=== PATIENT | female | born 1960 | race Caucasian/White ===

== ENCOUNTER 2018-02-04 11:25 | Observation (INO) | payer OTHER ==
[~2018-02-04] VITALS: Ht 160 cm; Wt 75.7 kg
[~2018-02-04 11:25] MED LIST: ATORVASTATIN CA10 MG PO; ATORVASTATIN CA40 MG PO; CIPRO500 MG PO; DICYCLOMINE HCL20 MG PO; GABAPENTIN300 MG PO; LEVOTHYROXINE25 MCG; METRONIDAZOLE500 MG PO; NEXIUM40 MG PO; TYLENOL # 31 EA PO; ULTRAM 50MG50 MG PO; ZOFRAN ODT4 MG
--- OUTSIDE RECORDS SUMMARY | 2018-02-04 11:29 | XMS REPORT | CCD ---
Author Author Auto Generated Organization [facility] Address Unknown Phone Unavailable Care Team Providers Care Maintenance And Custodian Supervisor Name Role Phone Dimitri Arce CP Allergies, Adverse Reactions, Alerts Substance Reaction Status NKDA Active Problem List Condition Effective Dates Status Chest pain Active Chronic depression Active Heart septal defects Active HLD - Hyperlipidemia Active Smoker Active Medications Medication Instructions Start Date End Date Status Zofran 4 mg, Route: IVP, Drug form: INJ, 08/08/2012 08/08/2012 Completed ONCE, Dosing Weight 70.455, kg, Priority: STAT, Start date: 08/08/12 16:58:00, Stop date: 08/08/12 16:58:00 morphine Sulfate 4 mg, Route: IM, Drug form: INJ, 08/08/2012 08/08/2012 Completed ONCE, Dosing Weight 70.455, kg, Priority: STAT, Start date: 08/08/12 16:58:00, Stop date: 08/08/12 16:58:00 aspirin 325 mg 325 mg, 1 tab, PO, Daily, 30 tab, 08/09/2012 Ordered tablet, enteric Substitution Allowed, ECTAB coated pravastatin 40 mg 40 mg, 1 tab, PO, Daily, 30 tab, 08/09/2012 Ordered oral tablet Substitution Allowed, TAB Saline Flush 0.9% 5 ml, Route: IVP, Drug Form: INJ, 08/08/2012 08/09/2012 Discontinued Dosing Weight 70.455, kg, PRN, PRN Line Flush, Start date: 08/08/12 18:21:00, Duration: 30 day, Stop date: 09/07/12 18:20:00 Saline Flush 0.9% 5 ml, Route: IVP, Drug Form: INJ, 08/08/2012 08/09/2012 Discontinued Dosing Weight 70.455, kg, Q12H, Start date: 08/08/12 21:00:00, Duration: 30 day, Stop date: 09/07/12 9:00:00 ondansetron 4 mg, 2 mL, Route: IVP, Drug form: 08/08/2012 08/09/2012 Discontinued INJ, Q8H, Dosing Weight 70.455, kg, PRN Nausea & Vomiting, Start date: 08/08/12 18:21:00, Duration: 30 day, Stop date: 09/07/12 18:20:00 nitroglycerin SL Tab 0.4 mg, 1 tab, Route: SL, Drug 08/08/2012 08/09/2012 Discontinued form: TAB, Q5Min, Dosing Weight 70.455, kg, PRN Chest Pain, Start date: 08/08/12 18:21:00, Duration: 3 doses or times, Stop date: Limited # of times atropine 0.5 mg, 5 mL, Route: IVP, Drug 08/08/2012 08/09/2012 Discontinued form: INJ, PRN, PRN Bradycardia, Start date: 08/08/12 21:26:00, Duration: 30 day, Stop date: 09/07/12 21:25:00 Saline Flush 0.9% 5 mL, Route: IVP, Drug Form: INJ, 08/08/2012 08/08/2012 Discontinued Dosing Weight 70.455, kg, Q8H, PRN Line Flush, Start date: 08/08/12 13:39:00, Duration: 30 day, Stop date: 09/07/12 13:38:00, Administer at least once every 8 hours Administer at least once every 8 hours aspirin 324 mg, 4 tab, Route: PO, Drug 08/08/2012 08/08/2012 Completed form: CHEWTAB, ONCE, Dosing Weight 70.455, kg, Priority: STAT, Start date: 08/08/12 13:39:00, Stop date: 08/08/12 13:39:00 Ambien 5 mg, 1 tab, Route: PO, Drug form: 08/08/2012 08/09/2012 Discontinued TAB, Bedtime, Dosing Weight 70.455, kg, Start date: 08/08/12 21:00:00, Duration: 30 day, Stop date: 09/06/12 21:00:00 sertraline 100 mg, 1 tab, Route: PO, Drug 08/09/2012 08/09/2012 Discontinued form: TAB, Daily, Dosing Weight 70.455, kg, Start date: 08/09/12 9:00:00, Duration: 30 day, Stop date: 09/07/12 9:00:00 Abilify 5 mg, 1 tab, Route: PO, Drug form: 08/08/2012 08/09/2012 Discontinued TAB, Bedtime, Dosing Weight 70.455, kg, Start date: 08/08/12 21:00:00, Duration: 30 day, Stop date: 09/06/12 21:00:00 pneumococcal 0.5 ml, Route: IM, Drug Form: INJ, 08/08/2012 08/09/2012 Discontinued 23-valent vaccine ONCALL, Start date: 08/08/12 22:00:00, Duration: 1 doses or times morphine Sulfate 2 mg, 1 mL, Route: IVP, Drug form: 08/08/2012 08/09/2012 Discontinued INJ, Q4H, Dosing Weight 70.455, kg, PRN Pain, Start date: 08/08/12 19:50:00, Duration: 30 day, Stop date: 09/07/12 19:49:00 enoxaparin 40 mg, 0.4 mL, Route: SUB-Q, Drug 08/08/2012 08/09/2012 Discontinued form: INJ, [id number], Dosing Weight 70.455, kg, Start date: 08/08/12 20:00:00, Duration: 30 day, Stop date: 09/06/12 20:00:00 Zofran 4 mg, 2 mL, Route: IVP, Drug form: 08/08/2012 08/08/2012 Completed INJ, ONCE, Dosing Weight 70.455, kg, Priority: STAT, Start date: 08/08/12 13:56:00, Stop date: 08/08/12 13:56:00 Abilify 5 mg oral 5 mg, 1 tab, PO, Bedtime, 08/08/2012 Ordered tablet Substitution Allowed Ambien 5 mg oral 5 mg, 1 tab, PO, Bedtime, 08/08/2012 Ordered tablet Substitution Allowed morphine Sulfate 4 mg, Route: IVP, ONCE, Dosing 08/08/2012 08/08/2012 Completed Weight 70.455, kg, Start date: 08/08/12 14:50:00, Stop date: 08/08/12 14:50:00 Vicodin 5/500 oral 1 tab, PO, Q4H, PRN, 60 tab, for 08/09/2012 Ordered tablet pain, Substitution Allowed, Maintenance, TAB morphine Sulfate 2 mg, 1 mL, Route: IVP, Drug form: 08/08/2012 08/08/2012 Completed INJ, ONCE, Dosing Weight 70.455, kg, Start date: 08/08/12 13:56:00, Stop date: 08/08/12 13:56:00 aspirin 325 mg 325 mg, 1 tab, PO, Daily, 30 tab, 08/09/2012 08/09/2012 Discontinued tablet, enteric Substitution Allowed, ECTAB coated pravastatin 40 mg 40 mg, 1 tab, PO, Daily, 30 tab, 08/09/2012 08/09/2012 Discontinued oral tablet Substitution Allowed, TAB Vicodin 5/500 oral 1 tab, PO, Q4H, PRN, 60 tab, for 08/09/2012 08/09/2012 Discontinued tablet pain, Substitution Allowed, Maintenance, TAB Vital Signs Most recent to oldest [Reference Range]: 1 2 3 Height 160.02 cm (08/08/2012 13:20:00) Temperature Oral [96.4-99.1 DegF] 97.5 DegF (08/09/2012 12:00:00) 97.9 DegF (08/09/2012 07:02:00) 98.0 DegF (08/09/2012 05:50:00) Systolic Blood Pressure [90-140 mmHg] 108 mmHg (08/09/2012 12:00:00) 117 mmHg (08/09/2012 07:02:00) 102 mmHg (08/09/2012 05:50:00) Diastolic Blood Pressure [60-90 mmHg] 66 mmHg (08/09/2012 12:00:00) 66 mmHg (08/09/2012 07:02:00) 68 mmHg (08/09/2012 05:50:00) Respiratory Rate [14-20 BRMIN] 16 BRMIN (08/09/2012 12:00:00) 14 BRMIN (08/09/2012 10:56:00) 16 BRMIN (08/09/2012 07:02:00) Peripheral Pulse Rate [60-100 bpm] 55 bpm *LOW* (08/09/2012 12:00:00) 49 bpm *LOW* (08/09/2012 07:02:00) 55 bpm *LOW* (08/09/2012 05:50:00) Weight 70.455 kg (08/08/2012 13:20:00) Results URINALYSIS Most recent to oldest [Reference Range]: 1 2 3 UA Turbidity [Clear] Clear (08/08/2012 16:00:00) UA Color [Yellow] Yellow *NA* (08/08/2012 16:00:00) UA pH [5.0-8.0] 5.0 (08/08/2012 16:00:00) UA Spec Grav [<=1.030] S3 *NA* (08/08/2012 16:00:00) UA Glucose [Negative mg/dL] Negative mg/dL *NA* (08/08/2012 16:00:00) UA Blood [Negative] Negative (08/08/2012 16:00:00) UA Ketones [Negative mg/dL] Negative mg/dL *NA* (08/08/2012 16:00:00) UA Protein [Negative mg/dL] Negative mg/dL (08/08/2012 16:00:00) UA Urobilinogen [0.1-1.0 mg/dL] <=1.0 mg/dL *NA* (08/08/2012 16:00:00) UA Bili [Negative] Negative *NA* (08/08/2012 16:00:00) UA Leuk Est [Negative] Negative (08/08/2012 16:00:00) UA Nitrite [Negative] Negative (08/08/2012 16:00:00) UA WBC [0-5 /HPF] 1 /HPF (08/08/2012 16:00:00) UA RBC [0-2 /HPF] 7 /HPF *HI* (08/08/2012 16:00:00) UA Sq Epi [Few /LPF] Occasional /LPF *NA* (08/08/2012 16:00:00) CHEMISTRY Most recent to oldest [Reference Range]: 1 2 3 Sodium Lvl [135-145 mEq/L] 141 mEq/L (08/09/2012 02:10:00) 141 mEq/L (08/08/2012 13:40:00) Potassium Lvl [3.5-5.1 mEq/L] 4.6 mEq/L (08/09/2012 02:10:00) 3.7 mEq/L (08/08/2012 13:40:00) Chloride Lvl [95-109 mEq/L] 105 mEq/L (08/09/2012 02:10:00) 106 mEq/L (08/08/2012 13:40:00) CO2 [24-32 mEq/L] 32 mEq/L (08/09/2012 02:10:00) 26 mEq/L (08/08/2012 13:40:00) AGAP [10.0-20.0 mEq/L] 8.6 mEq/L *LOW* (08/09/2012 02:10:00) 12.7 mEq/L (08/08/2012 13:40:00) Creatinine Lvl [0.5-1.4 mg/dL] 1.1 mg/dL (08/09/2012 02:10:00) 1.0 mg/dL (08/08/2012 13:40:00) eGFR 58 mL/min/1.73m2 1 *NA* (08/09/2012 02:10:00) 65 mL/min/1.73m2 2 *NA* (08/08/2012 13:40:00) BUN [7-22 mg/dL] 24 mg/dL *HI* (08/09/2012 02:10:00) 23 mg/dL *HI* (08/08/2012 13:40:00) B/C Ratio [6-25] 23 (08/08/2012 13:40:00) Glucose Lvl [70-99 mg/dL] 87 mg/dL 3 (08/09/2012 02:10:00) 178 mg/dL 4 *HI* (08/08/2012 13:40:00) Total Protein [6.4-8.4 g/dL] 7.2 g/dL (08/08/2012 13:40:00) Albumin Lvl [3.5-5.0 g/dL] 3.9 g/dL (08/08/2012 13:40:00) Globulin [2.0-4.0 g/dL] 3.3 g/dL (08/08/2012:40:00) A/G Ratio [0.7-1.6] 1.2 (08/08/2012:40:00) Calcium Lvl [8.5-10.5 mg/dL] 8.6 mg/dL (08/09/2012 02:10:00) 8.8 mg/dL (08/08/2012:40:00) Phosphorus [2.5-4.5 mg/dL] 3.3 mg/dL (08/08/2012:38:00) Magnesium Lvl [1.8-2.4 mg/dL] 1.8 mg/dL (08/08/2012:38:00) ALT [0-65 unit/L] 23 unit/L (08/08/2012:40:00) AST [0-37 unit/L] 16 unit/L (08/08/2012:40:00) Alk Phos [39-136 unit/L] 101 unit/L (08/08/2012:40:00) Bili Total [0.2-1.3 mg/dL] 0.3 mg/dL (08/08/2012:40:00) Total CK [12-191 unit/L] 61 unit/L (08/09/2012 02:10:00) 69 unit/L (08/08/2012 19:52:00) 62 unit/L (08/08/2012:40:00) CK MB [0.5-3.6 ng/mL] 0.6 ng/mL (08/08/2012:40:00) CK MB Index [0.0-2.5] 1.0 (08/08/2012:40:00) Troponin-I [0.00-0.40 ng/mL] <0.02 ng/mL (08/09/2012 02:10:00) <0.02 ng/mL (08/08/2012 19:52:00) <0.02 ng/mL (08/08/2012:38:00) BNP [<=100 pg/mL] 14 pg/mL 5 (08/08/2012:38:00) CHD Risk [3.90-5.80] 4.19 (08/09/2012 02:10:00) 3.85 *LOW* (08/08/2012 13:38:11) Chol [120-200 mg/dL] 243 mg/dL *HI* (08/09/2012:10:00) 239 mg/dL *HI* (08/08/2012:38:11) Trig [0-200 mg/dL] 197 mg/dL (08/09/2012:10:00) 172 mg/dL (08/08/2012:38:11) HDL [>=35 mg/dL] 58 mg/dL (08/09/2012:10:00) 62 mg/dL (08/08/2012:38:11) LDL [0-129 mg/dL] 146 mg/dL *HI* (08/09/2012:10:00) 143 mg/dL *HI* (08/08/2012:38:11) 1Result Comment: The eGFR is calculated using the CKD-EPI formula. In most young, healthy individuals the eGFR will be >90 mL/min/1.73m2. The eGFR declines with age. An eGFR of 60-89 may be normal in some populations, particularly the elderly, for whom the CKD-EPI formula has not been extensively validated. Use of the eGFR is not recommended in the following populations: Individuals with unstable creatinine concentrations, including patients and those with serious co-morbid conditions. Patients with extremes in muscle mass or diet. The data above are obtained from the National [employer] Education Program ( [employer]) which additionally recommends that when the eGFR is used in patients with extremes of body mass index for purposes of drug dosing, the eGFR should be mul tiplied by the estimated BMI. 2Result Comment: The eGFR is calculated using the CKD-EPI formula. In most young, healthy individuals the eGFR will be >90 mL/min/1.73m2. The eGFR declines with age. An eGFR of 60-89 may be normal in some populations, particularly the elderly, for whom the CKD-EPI formula has not been extensively validated. Use of the eGFR is not recommended in the following populations: Individuals with unstable creatinine concentrations, including patients and those with serious co-morbid conditions. Patients with extremes in muscle mass or diet. The data above are obtained from the National Kid[employer] Education Program ( [employer]DEP) which additionally recommends that when the eGFR is used in patients with extremes of body mass index for purposes of drug dosing, the eGFR should be mul tiplied by the estimated BMI. 3Interpretive Data: Adult reference range values reflect the clinical guidelines of the [place] [employer]. 4Interpretive Data: Adult reference range values reflect the clinical guidelines of the [place] [employer]. 5Interpretive Data: Elevated results are in line with increasing severity of congestive heart failure. Minor elevations between 100 and 300 may be seen with Myocardial Ischemia, Sodium retaining drugs, and compensated/treated heart failure. HEMATOLOGY Most recent to oldest [Reference Range]: 1 2 3 WBC [3.7-10.4 K/CMM] 6.5 K/CMM (08/08/2012:38:) RBC [4.20-5.40 M/CMM] 4.63 M/CMM (08/08/201238:) Hgb [12.0-16.0 g/dL] 14.0 g/dL (08/08/2012:38:) Hct [36.0-48.0 %] 42.0 % (08/08/2012:38:) MCV [81.0-99.0 fL] 90.6 fL (08/08/2012:38:00) MCH [27.0-31.0 pg] 30.2 pg (08/08/2012:38:00) MCHC [32.0-36.0 g/dL] 33.3 g/dL (08/08/2012:38:00) RDW [11.5-14.5 %] 13.7 % (08/08/2012:) Platelet [133-450 K/CMM] 242 K/CMM (08/08/2012:38:00) MPV [7.4-10.4 fL] 8.1 fL (08/08/2012:38:00) Segs [45.0-75.0 %] 66.1 % (08/08/2012:) Lymphocytes [20.0-40.0 %] 23.3 % (08/08/2012:38:) Monocytes [2.0-12.0 %] 7.2 % (08/08/2012 13:38:00) Eosinophils [0.0-4.0 %] 2.8 % (08/08/2012 13:38:00) Basophils [0.0-1.0 %] 0.6 % (08/08/2012:38:00) Segs-Bands # [1.5-8.1 K/CMM] 4.3 K/CMM (08/08/2012:38:00) Lymphocytes # [1.0-5.5 K/CMM] 1.5 K/CMM (08/08/2012:38:00) Monocytes # [0.0-0.8 K/CMM] 0.5 K/CMM (08/08/2012:38:00) Eosinophils # [0.0-0.5 K/CMM] 0.2 K/CMM (08/08/2012:38:00) Basophils # [0.0-0.2 K/CMM] 0.0 K/CMM (08/08/2012:38:00) PT [12.0-14.7 seconds] 13.1 seconds (08/08/2012:38:00) INR [0.85-1.17] 0.97 6 (08/08/2012:38:00) D-Dimer 0.27 ug/mL FEU 7 *NA* (08/08/2012:38:00) PTT [22.9-35.8 seconds] 24.8 seconds 8 (08/08/2012:38:00) 6Interpretive Data: RECOMMENDED RANGES FOR PROTIME INR: 2.0-3.0 for most medical and surgical thromboembolic states. 2.5-3.5 for artificial heart valves and recurrent embolism. INR SHOULD BE USED ONLY FOR PATIENTS ON STABLE ANTICOAGULANT THERAPY. 7Interpretive Data: In DIC, quantitative D-Dimer is generally greater than 0.66 ug/mL FEU. Values of quantitative D-Dimer less than 0.40 ug/mL FEU have been reported to be associated with a low probability of deep vein thrombosis/pulmonary embolism. This test alone should not be used to rule out DVT/PE. 8Interpretive Data: Heparin Therapeutic Range: 57 - 92 Seconds
--- OUTSIDE RECORDS SUMMARY | 2018-02-04 11:29 | XMS REPORT | Continuity of Care Document ---
Author Author [facility] Interface Address Unknown Phone Unavailable Problems Problem Status Onset Date Classification Date Reported Comments Source CHEST PAINS Active 09/24/2017 [facility] CHEST PAIN Active 09/23/2017 [facility] Discharge Diagnosis: Atypical chest pain 04/29/2016 05/02/2016 [facility] Discharge Diagnosis: Acute anxiety 04/29/2016 05/02/2016 [facility] Z12.31 / Z13.82 Active 07/11/2015 [facility] Discharge Diagnosis: Nausea 01/25/2015 01/28/2015 [facility] Discharge Diagnosis: Chronic abdominal pain 01/25/2015 01/28/2015 [facility] ABD PAIN, NAUSEA Active 01/25/2015 [facility] Discharge Diagnosis: Chest pain 06/08/2014 06/10/2014 [facility] UNK Active 08/23/2013 [facility] Discharge Diagnosis: Chest wall pain 08/01/2013 08/04/2013 [facility] Discharge Diagnosis: Anxiety 08/01/2013 08/04/2013 [facility] CHEST PAIN/NAUSEA Active 07/18/2013 [facility] Chest pain Active Problem 08/11/2012 [facility] Chronic depression Active Problem 08/11/2012 [facility] Heart septal defects Active Problem 08/11/2012 [facility] HLD - Hyperlipidemia Active Problem 08/11/2012 [facility] Smoker Active Problem 08/11/2012 [facility] Anxiety Active Problem 09/27/2017 [facility], [facility] [place] Chest pain Active Problem 09/27/2017 [facility], [facility] [place] Chronic depression Active Problem 09/27/2017 [facility], [facility] [place] Depression Active Problem 05/02/2016 [facility] [place] Heart murmur Active Problem 09/27/2017 [facility], [facility] [place] Heart septal defects Active Problem 09/27/2017 [facility] [place] High blood pressure Active Problem 09/27/2017 [facility], [facility] [place] High cholesterol Active Problem 09/27/2017 [facility] [place] HLD - Hyperlipidemia Active Problem 09/27/2017 [facility] [place] HTN (<span ID="[id number]</span>) Resolved Problem 09/27/2017 [facility] [place] Obesity Active Problem 09/27/2017 [facility] [place] Smoker Active Problem 09/27/2017 [facility] [place] VSD (<span ID="[id number]">Confirmed</span>) Resolved Problem 09/27/2017 [facility] [place] VSD (<span ID="[id number]">Confirmed</span>) Active Problem 09/27/2017 [facility] [place] Depression Active Diagnosis 11/21/2013 [facility] Hyperlipemia Active Diagnosis 11/21/2013 [facility] VSD Active Diagnosis 11/21/2013 [facility] Tobacco abuse Active Problem 11/21/2013 [facility] H. pylori infection Active Diagnosis 11/21/2013 [facility] Vomiting Active Diagnosis 11/21/2013 [facility] BMI 27.0-27.9,adult Active Problem 11/21/2013 [facility] Depression screen Active Diagnosis 11/21/2013 [facility] Tobacco abuse counseling Active Diagnosis 11/21/2013 [facility] Medications Medication Details Route Status Patient Instructions Ordering Provider Order Date Source Dexilant 60 mg, Route: PO, Drug form: DRC, Daily, Dosing Weight 80.909, kg, Start date: 09/25/17 9:00:00 CDT, Duration: 30 day, Stop date: 10/24/17 9:00:00 CDT No Longer Active 09/25/2017 [facility] Sertraline 100 mg, Route: PO, Drug form: TAB, Daily, Dosing Weight 80.909, kg, Start date: 09/25/17 9:00:00 CDT, Duration: 30 day, Stop date: 10/24/17 9:00:00 CDT No Longer Active 09/25/2017 [facility] azithromycin 500 mg oral tablet 500 mg, Route: PO, Drug form: TAB, Daily, Dosing Weight 80.909, kg, Start date: 09/25/17 9:00:00 CDT, Duration: 5 day, Stop date: 09/29/17 9:00:00 CDT, ABX Indication: Pneumonia No Longer Active 09/25/2017 [facility] Thyroxine 25 microgram, Route: PO, Drug form: TAB, Daily, Dosing Weight 80.909, kg, Start date: 09/25/17 9:00:00 CDT, Duration: 30 day, Stop date: 10/24/17 9:00:00 CDT No Longer Active 09/25/2017 [facility] Esomeprazole 40 mg, Route: PO, Drug form: ECCAP, Daily, Dosing Weight 80.909, kg, Start date: 09/25/17 9:00:00 CDT, Duration: 30 day, Stop date: 10/24/17 9:00:00 CDT No Longer Active 09/25/2017 [facility] Ambien 5 mg, Route: PO, Drug form: TAB, Bedtime, Dosing Weight 80.909, kg, Start date: 09/24/17 21:00:00 CDT, Duration: 30 day, Stop date: 10/23/17 21:00:00 CDT Inactive 09/25/2017 [facility] Ranitidine 150 MG Oral Tablet 150 mg, 1 tab, Route: PO, Drug form: TAB, BID, Dosing Weight 80.909, kg, Start date: 09/24/17 17:00:00 CDT, Duration: 30 day, Stop date: 10/24/17 9:00:00 CDT Inactive 09/24/2017 [facility] 12 HR ranolazine 500 MG Extended Release Tablet [Ranexa] 500 mg=1 tab, PO, BID, # 60 tab, 2 Refill(s), Pharmacy: [facility] [id number] Active 09/24/2017 [facility] tramadol hydrochloride 50 MG Oral Tablet 50 mg=1 tab, PO, Q6H, PRN Pain, # 60 tab, 1 Refill(s) Active 09/24/2017 [facility] amLODIPine 5 mg oral tablet 5 mg=1 tab, PO, Daily, # 30 tab, 1 Refill(s), Pharmacy: [facility] [id number] Active 09/24/2017 [facility] Dilaudid 0.1 mg, 0.1 mL, Route: IV, Drug form: INJ, Q4H, PRN Pain Score 6-10, Start date: 09/24/17 13:44:00 CDT, Duration: 30 day, Stop date: 10/24/17 13:43:00 CDTNotes: Same as: Dilaudid Inactive 09/24/2017 [facility] Morphine 3 mg, 1.5 mL, Route: PO, Drug form: SOLN, Q4H, Dosing Weight 80.909, kg, PRN Pain Score 6-10, Start date: 09/24/17 13:14:00 CDT, Duration: 30 day, Stop date: 10/24/17 13:13:00 CDTNotes: (Same as:MORPhine Sulfate) Inactive 09/24/2017 [facility] Morphine 2 mg, 1 mL, Route: IV, Drug form: SOLN, Q4H, Dosing Weight 80.909, kg, PRN Pain Score 7-10, Start date: 09/24/17 12:57:00 CDT, Duration: 30 day, Stop date: 10/24/17 12:56:00 CDT Inactive 09/24/2017 [facility] Esomeprazole 40 mg, Route: PO, Drug form: ECCAP, Daily, Dosing Weight 80.909, kg, Priority: STAT, Start date: 09/24/17 12:57:00 CDT, Duration: 30 day, Stop date: 10/24/17 9:00:00 CDT Inactive 09/24/2017 [facility] 12 HR ranolazine 500 MG Extended Release Tablet [Ranexa] 500 mg, 1 tab, Route: PO, BID, Dosing Weight 80.909, kg, Priority: STAT, Start date: 09/24/17 12:53:00 CDT, Duration: 30 day, Stop date: 10/24/17 9:00:00 CDT Inactive 09/24/2017 [facility] Acetaminophen 325 MG / Hydrocodone Bitartrate 7.5 MG Oral Tablet [[place] 7.5/325] 1 tab, Route: PO, Drug Form: TAB, Dosing Weight 80.909, kg, Q4H, PRN Angina, Start date: 09/24/17 12:50:00 CDT, Duration: 30 day, Stop date: 10/24/17 12:49:00 CDT Inactive 09/24/2017 [facility] ranolazine 500 mg, 1 tab, Route: PO, Drug form: TAB, BID, Dosing Weight 80.909, kg, Priority: NOW, Start date: 09/24/17 11:17:00 CDT, Duration: 30 day, Stop date: 10/24/17 9:00:00 CDTNotes: Same as Ranexa "Do Not Crush" Inactive 09/24/2017 [facility] Morphine 1 mg, 1 mL, Route: IV, Drug form: INJ, Q4H, Dosing Weight 80.909, kg, PRN Pain Score 7-10, Start date: 09/24/17 11:15:00 CDT, Duration: 30 day, Stop date: 10/24/17 11:14:00 CDTNotes: (Same as: Astramorph- PF) Inactive 09/24/2017 [facility] simvastatin 20 mg oral tablet 20 mg=1 tab, PO, Bedtime, # 30 tab, 1 Refill(s) Active 09/24/2017 [facility] lisinopril 10 mg oral tablet 10 mg=1 tab, PO, Daily, # 30 tab, 0 Refill(s) Inactive 09/24/2017 [facility] Tylenol 650 mg, PO, TID, PRN Pain Score 1-3, 0 Refill(s) Inactive 09/24/2017 [facility] Ranitidine 150 MG Oral Tablet 150 mg=1 tab, PO, BID, 0 Refill(s) Active 09/24/2017 [facility] dexlansoprazole 60 MG Enteric Coated Capsule [Dexilant] 60 mg=1 cap, PO, Daily, # 30 cap, 0 Refill(s) Active 09/24/2017 [facility] Saline Flush 0.9% 10 ml, Route: IVP, Drug Form: INJ, Dosing Weight 80.909, kg, PRN, PRN Line Flush, Start date: 09/24/17 10:51:00 CDT, Duration: 30 day, Stop date: 10/24/17 10:50:00 CDTNotes: Same as: BD Posiflush Sterile Inactive 09/24/2017 [facility] Acetaminophen 650 mg, 2 tab, Route: PO, Drug form: TAB, Q4H, Dosing Weight 80.909, kg, PRN Pain 1-3/Temp > 100.4 F, Start date: 09/24/17 10:51:00 CDT, Duration: 30 day, Stop date: 10/24/17 10:50:00 CDTNotes: Do not exceed 4 gm/day. (Same as: Tylenol) Inactive 09/24/2017 [facility] GI cocktail 30 mL, Route: PO, Dosing Weight 80.909, kg, ONCE, STAT, Start date: 09/24/17 7:48:00 CDT, Stop date: 09/24/17 7:48:00 CDT Inactive 09/24/2017 [facility] Nitroglycerin 0.4 mg, Route: SL, ONCE, Dosing Weight 80.909, kg, Priority: STAT, Start date: 09/24/17 7:07:00 CDT, Stop date: 09/24/17 7:07:00 CDT Inactive 09/24/2017 [facility] Fentanyl 50 microgram, Route: IVP, ONCE, Dosing Weight 80.909, kg, Priority: STAT, Start date: 09/24/17 7:07:00 CDT, Stop date: 09/24/17 7:07:00 CDT Inactive 09/24/2017 [facility] Aspirin 325 mg, Route: PO, Drug form: TAB, ONCE, Dosing Weight 80.909, kg, Priority: STAT, Start date: 09/24/17 6:35:00 CDT, Stop date: 09/24/17 6:35:00 CDT Inactive 09/24/2017 [facility] Fentanyl 50 microgram, Route: IVP, ONCE, Dosing Weight 80.909, kg, Priority: STAT, Start date: 09/24/17 6:32:00 CDT, Stop date: 09/24/17 6:32:00 CDT Inactive 09/24/2017 [facility] Saline Flush 0.9% 10 mL, Route: IVP, Drug Form: INJ, Dosing Weight 80.909, kg, PRN, PRN Line Flush, Start date: 09/24/17 6:27:00 CDT, Duration: 30 day, Stop date: 10/24/17 6:26:00 CDTNotes: (Same as: BD Posiflush) Inactive 09/24/2017 [facility] Diazepam 2 MG Oral Tablet [Valium] 2 mg=1 tab, PO, QID, PRN Anxiety, X 7 day, # 5 tab, 0 Refill(s) Active 04/29/2016 [facility] Hydromorphone 1 mg, 1 mL, Route: IVP, Drug form: INJ, ONCE, Dosing Weight 79.545, kg, Priority: STAT, Start date: 04/29/16 12:29:00 [employer], Stop date: 04/29/16 12:29:00 [employer] Inactive 04/29/2016 [facility] Morphine 4 mg, 1 mL, Route: IVP, Drug form: SOLN, ONCE, Dosing Weight 79.545, kg, Priority: STAT, Start date: 04/29/16 12:29:00 YOU[employer] WORKER, Stop date: 04/29/16 12:29:00 CSTNotes: (Same as:MORPhine Sulfate) Inactive 04/29/2016 [facility] Aspirin 324 mg, 4 tab, Route: PO, Drug form: CHEWTAB, ONCE, Dosing Weight 79.545, kg, Priority: STAT, Start date: 04/29/16 12:29:00 [employer] WORK[employer], Stop date: 04/29/16 12:29:00 CSTNotes: Take with food. Inactive 04/29/2016 [facility] Saline Flush 0.9% 10 mL, Route: IVP, Drug Form: INJ, Dosing Weight 79.545, kg, PRN, PRN Line Flush, Start date: 04/29/16 12:29:00 YOU[employer] C[employer] WORKER, Duration: 30 day, Stop date: 05/29/16 12:28:00 CSTNotes: (Same as: BD Posiflush) Inactive 04/29/2016 [facility] Ondansetron 4 MG Disintegrating Tablet [Zofran] 4 mg=1 tab, PO, TID, PRN Nausea and Vomiting, Dissolve tab under tongue, X 5 day, # 15 tab, 0 Refill(s) Active 01/26/2015 [facility] Zofran 4 mg, Route: IVP, Drug form: INJ, ONCE, Dosing Weight 77.273, kg, Priority: STAT, Start date: 01/25/15 20:19:00, Stop date: 01/25/15 20:19:00 Inactive 01/26/2015 [facility] Dilaudid 1 mg, Route: IVP, ONCE, Dosing Weight 77.273, kg, Priority: STAT, Start date: 01/25/15 18:26:00, Stop date: 01/25/15 18:26:00 Inactive 01/25/2015 [facility] pantoprazole 40 mg, Route: IVP, ONCE, Dosing Weight 77.273, kg, For IV push reconstitute with 10 ml 0.9% sodium chloride and push over at least 3 minutes, Priority: STAT, Start date: 01/25/15 17:23:00, Stop date: 01/25/15 17:23:00 Inactive 01/25/2015 [facility] Hydromorphone 1 mg, Route: IVP, ONCE, Dosing Weight 77.273, kg, Priority: STAT, Start date: 01/25/15 17:23:00, Stop date: 01/25/15 17:23:00 Inactive 01/25/2015 [facility] Ondansetron 4 mg, Route: IVP, ONCE, Dosing Weight 77.273, kg, Priority: STAT, Start date: 01/25/15 17:23:00, Stop date: 01/25/15 17:23:00 Inactive 01/25/2015 [facility] Sodium Chloride 0.154 MEQ/ML Injectable Solution 1,000 mL, Infuse Over: 1 hr, Route: IV, ONCE, Priority: STAT, Dosing Weight 77.273 kg, Start date: 01/25/15 17:23:00, Duration: 1 doses or times, Stop date: 01/25/15 17:23:00 Inactive 01/25/2015 [facility] Saline Flush 0.9% 10 mL, Route: IVP, Drug Form: INJ, Dosing Weight 77.273, kg, PRN, PRN Line Flush, Start date: 01/25/15 17:23:00, Duration: 30 day, Stop date: 02/24/15 16:22:00Notes: (Same as: BD Posiflush) No Longer Active 01/25/2015 [facility] Acetaminophen 300 MG / Codeine Phosphate 30 MG Oral Tablet [Tylenol with Codeine #3] 1 tab, Route: PO, Drug Form: TAB, Dosing Weight 75, kg, ONCE, STAT, Start date: 06/08/14 15:30:00, Stop date: 06/08/14 15:30:00 Inactive 06/08/2014 [facility] Acetaminophen 300 MG / Codeine Phosphate 30 MG Oral Tablet [Tylenol with Codeine #3] 1 - 2 tab, PO, Q4H, Pain, # 20 tab, 0 Refill(s) Active 06/08/2014 [facility] Acetaminophen 300 MG / Codeine Phosphate 30 MG Oral Tablet [Tylenol with Codeine #3] 1 tab, Route: PO, Drug Form: TAB, Dosing Weight 75, kg, ONCE, STAT, Start date: 06/08/14 14:29:00, Stop date: 06/08/14 14:29:00 Inactive 06/08/2014 [facility] Ibuprofen 400 MG Oral Tablet 400 mg=1 tab, PO, Q6H, Pain or Fever, Take with food, # 40 tab, 0 Refill(s)Special Instructions: Take with food Active 06/08/2014 [facility] GI cocktail 30 mL, Route: PO, Dosing Weight 75, kg, ONCE, STAT, Start date: 06/08/14 13:17:00, Stop date: 06/08/14 13:17:00 Inactive 06/08/2014 [facility] Pepcid 20 mg, Route: IV, ONCE, Dosing Weight 75, kg, Start date: 06/08/14 13:17:00, Stop date: 06/08/14 13:17:00 Inactive 06/08/2014 [facility] Ketorolac 30 mg, Route: IVP, Drug form: INJ, ONCE, Dosing Weight 75, kg, Priority: STAT, Start date: 06/08/14 12:26:00, Stop date: 06/08/14 12:26:00 Inactive 06/08/2014 [facility] Ativan 1 mg, Route: IVP, Drug form: INJ, ONCE, Dosing Weight 75, kg, Priority: STAT, Start date: 06/08/14 10:31:00, Stop date: 06/08/14 10:31:00 Inactive 06/08/2014 [facility] Morphine 4 mg, Route: IVP, Drug form: INJ, ONCE, Dosing Weight 75, kg, Priority: STAT, Start date: 06/08/14 10:31:00, Stop date: 06/08/14 10:31:00 Inactive 06/08/2014 [facility] Nitroglycerin 0.4 mg, Route: SL, ONCE, Dosing Weight 75, kg, Priority: STAT, Start date: 06/08/14 10:21:00, Stop date: 06/08/14 10:21:00 Inactive 06/08/2014 [facility] aspirin 324 mg, Route: CHEW, Drug form: CHEWTAB, ONCE, Dosing Weight 75, kg, Priority: STAT, Start date: 06/08/14 10:20:00, Stop date: 06/08/14 10:20:00 Inactive 06/08/2014 [facility] Zofran 4 mg, Route: IVP, Drug form: INJ, ONCE, Dosing Weight 75, kg, Priority: STAT, Start date: 06/08/14 10:20:00, Stop date: 06/08/14 10:20:00 Inactive 06/08/2014 [facility] Morphine 4 mg, Route: IVP, Drug form: INJ, ONCE, Dosing Weight 75, kg, Priority: STAT, Start date: 06/08/14 10:20:00, Stop date: 06/08/14 10:20:00 Inactive 06/08/2014 [facility] Diazepam 2 MG Oral Tablet [Valium] 4 mg=2 tab, PO, QID, Chest Pain, # 12 tab, 0 Refill(s) Active 12/26/2013 [facility] Valium 5 mg, Route: IVP, Drug form: INJ, ONCE, Dosing Weight 70.455, kg, Priority: STAT, Start date: 12/25/13 20:46:00, Stop date: 12/25/13 20:46:00 Inactive 12/26/2013 [facility] Zofran 4 mg, Route: IVP, Drug form: INJ, ONCE, Dosing Weight 70.455, kg, Priority: STAT, Start date: 12/25/13 20:27:00, Stop date: 12/25/13 20:27:00 Inactive 12/26/2013 [facility] Morphine 4 mg, Route: IVP, Drug form: INJ, ONCE, Dosing Weight 70.455, kg, Priority: STAT, Start date: 12/25/13 20:27:00, Stop date: 12/25/13 20:27:00 Inactive 12/26/2013 [facility] Omeclamox-Lance as directed by mouth Active 20/500/500 by mouth daily [facility] 11/02/2013 [facility] Indomethacin 75 MG Extended Release Capsule [Indocin] 75 mg=1 cap, PO, Daily, for pain, # 10 cap, 0 Refill(s) Inactive 08/01/2013 [facility] Zofran 4 mg, Route: IVP, ONCE, Dosing Weight 68.182, kg, Priority: STAT, Start date: 08/01/13 16:24:00, Stop date: 08/01/13 16:24:00 Inactive 08/01/2013 [facility] Morphine 4 mg, Route: IVP, ONCE, Dosing Weight 68.182, kg, Priority: STAT, Start date: 08/01/13 16:24:00, Stop date: 08/01/13 16:24:00 Inactive 08/01/2013 [facility] Ketorolac 60 mg, Route: IM, Drug form: INJ, ONCE, Dosing Weight 68.182, kg, Priority: STAT, Start date: 08/01/13 16:18:00, Stop date: 08/01/13 16:18:00 Inactive 08/01/2013 [facility] pravastatin 40 mg oral tablet 40 mg, 1 tab, PO, Daily, 30 tab, Substitution Allowed, TAB PO Active [facility] 08/09/2012 [facility] aspirin 325 mg tablet, enteric coated 325 mg, 1 tab, PO, Daily, 30 tab, Substitution Allowed, ECTAB PO Active [facility] 08/09/2012 [facility] Vicodin 5/500 oral tablet 1 tab, PO, Q4H, PRN, 60 tab, for pain, Substitution Allowed, Maintenance, TAB PO Active [facility] 08/09/2012 [facility] aspirin 325 mg tablet, enteric coated 325 mg, 1 tab, PO, Daily, 30 tab, Substitution Allowed, ECTAB PO No Longer Active [facility] 08/09/2012 [facility] pravastatin 40 mg oral tablet 40 mg, 1 tab, PO, Daily, 30 tab, Substitution Allowed, TAB PO No Longer Active [facility] 08/09/2012 [facility] Vicodin 5/500 oral tablet 1 tab, PO, Q4H, PRN, 60 tab, for pain, Substitution Allowed, Maintenance, TAB PO No Longer [facility]/2012 [facility] sertraline 100 mg, 1 tab, Route: PO, Drug form: TAB, Daily, Dosing Weight 70.455, kg, Start date: 08/09/12 9:00:00, Duration: 30 day, Stop date: 09/07/12 9:00:00 PO No Longer Active [facility] 08/09/2012 [facility] pneumococcal 23-valent vaccine 0.5 ml, Route: IM, Drug Form: INJ, ONCALL, Start date: 08/08/12 22:00:00, Duration: 1 doses or times IM No Longer Active [facility] 08/09/2012 [facility] atropine 0.5 mg, 5 mL, Route: IVP, Drug form: INJ, PRN, PRN Bradycardia, Start date: 08/08/12 21:26:00, Duration: 30 day, Stop date: 09/07/12 21:25:00 IVP No Longer Active [facility] 08/09/2012 [facility] Saline Flush 0.9% 5 ml, Route: IVP, Drug Form: INJ, Dosing Weight 70.455, kg, Q12H, Start date: 08/08/12 21:00:00, Duration: 30 day, Stop date: 09/07/12 9:00:00 IVP No Longer Active [facility] 08/09/2012 [facility] Ambien 5 mg, 1 tab, Route: PO, Drug form: TAB, Bedtime, Dosing Weight 70.455, kg, Start date: 08/08/12 21:00:00, Duration: 30 day, Stop date: 09/06/12 21:00:00 PO No Longer Active [facility] 08/09/2012 [facility] Abilify 5 mg, 1 tab, Route: PO, Drug form: TAB, Bedtime, Dosing Weight 70.455, kg, Start date: 08/08/12 21:00:00, Duration: 30 day, Stop date: 09/06/12 21:00:00 PO No Longer Active [facility] 08/09/2012 [facility] enoxaparin 40 mg, 0.4 mL, Route: SUB-Q, Drug form: INJ, [id number], Dosing Weight 70.455, kg, Start date: 08/08/12 20:00:00, Duration: 30 day, Stop date: 09/06/12 20:00:00 SUB-Q No Longer Active [facility] 08/09/2012 [facility] morphine Sulfate 2 mg, 1 mL, Route: IVP, Drug form: INJ, Q4H, Dosing Weight 70.455, kg, PRN Pain, Start date: 08/08/12 19:50:00, Duration: 30 day, Stop date: 09/07/12 19:49:00 IVP No Longer Active [facility] 08/09/2012 [facility] Saline Flush 0.9% 5 ml, Route: IVP, Drug Form: INJ, Dosing Weight 70.455, kg, PRN, PRN Line Flush, Start date: 08/08/12 18:21:00, Duration: 30 day, Stop date: 09/07/12 18:20:00 IVP No Longer Active [facility] 08/08/2012 [facility] ondansetron 4 mg, 2 mL, Route: IVP, Drug form: INJ, Q8H, Dosing Weight 70.455, kg, PRN Nausea & Vomiting, Start date: 08/08/12 18:21:00, Duration: 30 day, Stop date: 09/07/12 18:20:00 IVP No Longer Active [facility] 08/08/2012 [facility] nitroglycerin SL Tab 0.4 mg, 1 tab, Route: SL, Drug form: TAB, Q5Min, Dosing Weight 70.455, kg, PRN Chest Pain, Start date: 08/08/12 18:21:00, Duration: 3 doses or times, Stop date: Limited # of times SL No Longer Active [facility] 08/08/2012 [facility] Abilify 5 mg oral tablet 5 mg, 1 tab, PO, Bedtime, Substitution Allowed PO Active [facility] 08/08/2012 [facility] Ambien 5 mg oral tablet 5 mg, 1 tab, PO, Bedtime, Substitution Allowed PO Active [facility] 08/08/2012 [facility] Zofran 4 mg, Route: IVP, Drug form: INJ, ONCE, Dosing Weight 70.455, kg, Priority: STAT, Start date: 08/08/12 16:58:00, Stop date: 08/08/12 16:58:00 IVP No Longer Active [facility] 08/08/2012 [facility] morphine Sulfate 4 mg, Route: IM, Drug form: INJ, ONCE, Dosing Weight 70.455, kg, Priority: STAT, Start date: 08/08/12 16:58:00, Stop date: 08/08/12 16:58:00 IM No Longer Active [facility] 08/08/2012 [facility] morphine Sulfate 4 mg, Route: IVP, ONCE, Dosing Weight 70.455, kg, Start date: 08/08/12 14:50:00, Stop date: 08/08/12 14:50:00 IVP No Longer Active [facility] 08/08/2012 [facility] Zofran 4 mg, 2 mL, Route: IVP, Drug form: INJ, ONCE, Dosing Weight 70.455, kg, Priority: STAT, Start date: 08/08/12 13:56:00, Stop date: 08/08/12 13:56:00 IVP No Longer Active [facility] 08/08/2012 [facility] morphine Sulfate 2 mg, 1 mL, Route: IVP, Drug form: INJ, ONCE, Dosing Weight 70.455, kg, Start date: 08/08/12 13:56:00, Stop date: 08/08/12 13:56:00 IVP No Longer Active [facility] 08/08/2012 [facility] Saline Flush 0.9% 5 mL, Route: IVP, Drug Form: INJ, Dosing Weight 70.455, kg, Q8H, PRN Line Flush, Start date: 08/08/12 13:39:00, Duration: 30 day, Stop date: 09/07/12 13:38:00, Administer at least once every 8 hoursAdminister at least once every 8 hours IVP No Longer Active [facility] 08/08/2012 [facility] aspirin 324 mg, 4 tab, Route: PO, Drug form: CHEWTAB, ONCE, Dosing Weight 70.455, kg, Priority: STAT, Start date: 08/08/12 13:39:00, Stop date: 08/08/12 13:39:00 PO No Longer Active [facility] 08/08/2012 [facility] omeprazole 20 mg oral delayed release capsule 20 mg, 1 cap, PO, Daily, 30 cap, Substitution Allowed PO Active [facility] 05/07/2011 [facility] sertraline 100 mg, 1 tab, Route: PO, Drug form: TAB, Daily, Start date: 05/07/11 9:00:00, Duration: 30 day, Stop date: 06/05/11 9:00:00 PO No Longer Active [facility] [place] [facility] 05/07/2011 [facility] Protonix 40 mg, 1 tab, Route: PO, Drug form: ECTAB, Daily, Priority: NOW, Start date: 05/06/11 10:14:00, Duration: 30 day, Stop date: 06/05/11 9:00:00 PO No Longer Active [facility] 05/06/2011 [facility] GI cocktail 30 mL, Route: PO, Drug Form: SUSP, Q6H, Start date: 05/06/11 6:30:00, Duration: 30 day, Stop date: 06/05/11 6:00:00 PO No Longer Active [facility] 05/06/2011 [facility] Saline Flush 0.9% 5 ml, Route: IVP, Drug Form: INJ, Q12H, Start date: 05/05/11 21:00:00, Duration: 30 day, Stop date: 06/04/11 9:00:00 IVP No Longer Active [facility] 05/06/2011 [facility] morphine Sulfate 1 mg, 0.1 mL, Route: IV, Drug form: INJ, Q4H, PRN Chest Pain, Start date: 05/05/11 17:10:00, Duration: 30 day, Stop date: 06/04/11 17:09:00 IV No Longer Active [facility] 05/05/2011 [facility] nitroglycerin 2% ointment 0.5 inch, Route: TOP, Drug Form: OINT, TID, Start date: 05/05/11 17:00:00, Duration: 30 day, Stop date: 06/04/11 13:00:00 TOP No Longer Active [facility] 05/05/2011 [facility] morphine Sulfate 2 mg, 0.2 mL, Route: IVP, Drug form: INJ, Q2H, PRN Chest Pain, Morphine sulfate 1-2 mg IVP Q 4 hours PRN chest pain, Priority: NOW, Start date: 05/05/11 16:56:00, Stop date: 06/04/11 16:55:00 IVP No Longer Active [facility] 05/05/2011 [facility] Saline Flush 0.9% 5 ml, Route: IVP, Drug Form: INJ, PRN, PRN Line Flush, Start date: 05/05/11 16:12:00, Duration: 30 day, Stop date: 06/04/11 16:11:00 IVP No Longer Active [facility] 05/05/2011 [facility] nitroglycerin SL Tab 0.4 mg, 1 tab, Route: SL, Drug form: TAB, Q5Min, PRN Chest Pain, Start date: 05/05/11 16:12:00, Duration: 3 doses or times, Stop date: Limited # of times SL No Longer Active [facility] 05/05/2011 [facility] ondansetron 4 mg, 1 tab, Route: PO, Drug form: TAB, Q8H, PRN Nausea & Vomiting, Start date: 05/05/11 16:12:00, Duration: 30 day, Stop date: 06/04/11 16:11:00 PO No Longer Active [facility] 05/05/2011 [facility] aspirin 325 mg tablet 325 mg, 1 tab, Route: PO, Drug form: TAB, ONCE, Start date: 05/05/11 16:12:00, Stop date: 05/05/11 16:12:00 PO No Longer Active [facility] 05/05/2011 [facility] sertraline 100 mg oral tablet 100 mg, 1 tab, PO, Daily, Substitution Allowed PO Active [facility] 05/05/2011 [facility] morphine Sulfate 2 mg, Route: IVP, ONCE, Start date: 05/05/11 14:17:00, Stop date: 05/05/11 14:17:00 IVP No Longer Active [facility] 05/05/2011 [facility] aspirin 325 mg tablet 325 mg, Route: PO, Drug form: TAB, ONCE, Priority: STAT, Start date: 05/05/11 12:17:00, Stop date: 05/05/11 12:17:00 PO No Longer Active [facility] 05/05/2011 [facility] Saline Flush 0.9% 5 ml, Route: IVP, Drug Form: INJ, PRN, PRN Line Flush, Start date: 05/05/11 12:17:00, Duration: 24 hr, Stop date: 05/06/11 12:16:00 IVP No Longer Active [facility] 05/05/2011 [facility] nitroglycerin 2% ointment 0.5 inch, Route: TOP, Drug Form: OINT, ONCE, STAT, Start date: 05/05/11 12:17:00, Stop date: 05/05/11 12:17:00 TOP No Longer Active [facility] 05/05/2011 [facility] morphine Sulfate 2 mg, Route: IVP, ONCE, Priority: STAT, Start date: 05/05/11 12:17:00, Stop date: 05/05/11 12:17:00 IVP No Longer Active [facility] 05/05/2011 [facility] Hydrocodone-Acetaminophen 1 tablet as needed Orally Active 325- 5 MG Orally every 6 hrs [facility] Zoloft 1 tablet Orally Active 100 MG Orally Once a day [facility] Aspirin 1 tablet Orally Active 81 MG Orally Once a day [facility] Allergies, Adverse Reactions, Alerts Substance Category Reaction Severity Reaction type Status Date Reported Comments Source N.K.D.A. Adverse Reaction Info Not Available Adverse Reaction Active 11/02/2013 [facility] Immunizations Immunization Date Given Site Status Last Updated Comments Source Results Order Name Results Value Reference Range Date Interpretation Comments Source CARDIAC ENZYMES Total CK 33 unit/L 12 - 191 09/24/2017 [facility] CARDIAC ENZYMES Troponin-I null 0.00 - 0.40 09/24/2017 [facility] CHEM PANEL eGFR 77 mL/min/1.73m2 09/24/2017 Result Comment: The eGFR is calculated using the [...] from the National Kidney Disease Education Program (NKDEP) which additionally recommends that when the eGFR is used in patients with extremes of body mass index for purposes of drug dosing, the eGFR should be multiplied by the estimated BMI. [facility] CHEM PANEL Bili Total 0.5 mg/dL 0.2 - 1.3 09/24/2017 [facility] CHEM PANEL A/G Ratio 1.1 0.7 - 1.6 09/24/2017 [facility] CHEM PANEL Globulin 3.5 g/dL 2.7 - 4.2 09/24/2017 [facility] CHEM PANEL ALT 58 unit/L 0 - 65 09/24/2017 [facility] CHEM PANEL Albumin Lvl 3.8 g/dL 3.5 - 5.0 09/24/2017 [facility] CHEM PANEL CO2 26 meq/L 24 - 32 09/24/2017 [facility] CHEM PANEL AST 24 unit/L 0 - 37 09/24/2017 [facility] CHEM PANEL Alk Phos 112 unit/L 39 - 136 09/24/2017 [facility] CHEM PANEL BUN 19 mg/dL 7 - 22 09/24/2017 [facility] CHEM PANEL Creatinine Lvl 0.84 mg/dL 0.50 - 1.40 09/24/2017 [facility] CHEM PANEL Chloride Lvl 104 meq/L 95 - 109 09/24/2017 [facility] CHEM PANEL Potassium Lvl 3.8 meq/L 3.5 - 5.1 09/24/2017 [facility] CHEM PANEL Sodium Lvl 140 meq/L 135 - 145 09/24/2017 [facility] CHEM PANEL AGAP 13.8 meq/L 10.0 - 20.0 09/24/2017 [facility] CHEM PANEL B/C Ratio 23 6 - 25 09/24/2017 [facility] CHEM PANEL Total Protein 7.3 g/dL 6.4 - 8.4 09/24/2017 [facility] CHEM PANEL Calcium Lvl 8.8 mg/dL 8.5 - 10.5 09/24/2017 [facility] CHEM PANEL Glucose Lvl 138 mg/dL 70 - 99 09/24/2017 [facility] CHEM PANEL Magnesium Lvl 2.2 mg/dL 1.8 - 2.4 09/24/2017 [facility] HEMATOLOGY RDW 13.6 % 11.5 - 14.5 09/24/2017 [facility] HEMATOLOGY Platelet 255 K/CMM 133 - 450 09/24/2017 [facility] HEMATOLOGY Hgb 13.9 g/dL 12.0 - 16.0 09/24/2017 [facility] HEMATOLOGY WBC 7.6 K/CMM 3.7 - 10.4 09/24/2017 [facility] HEMATOLOGY RBC 4.66 M/CMM 4.20 - 5.40 09/24/2017 [facility] HEMATOLOGY Hct 41.0 % 36.0 - 48.0 09/24/2017 [facility] HEMATOLOGY MCV 87.9 fL 80.0 - 98.0 09/24/2017 [facility] MCHC 34.0 g/dL 32.0 - 36.0 09/24/2017 [facility] MCH 29.8 pg 27.0 - 31.0 09/24/2017 [facility] HEMATOLOGY MPV 7.7 fL 7.4 - 10.4 09/24/2017 [facility] HEMATOLOGY Eosinophils # 0.1 K/CMM 0.0 - 0.5 09/24/2017 [facility] HEMATOLOGY Basophils # 0.1 K/CMM 0.0 - 0.2 09/24/2017 [facility] HEMATOLOGY Monocytes # 0.5 K/CMM 0.0 - 0.8 09/24/2017 [facility] HEMATOLOGY Segs 64.0 % 45.0 - 75.0 09/24/2017 [facility] HEMATOLOGY Lymphocytes 27.0 % 20.0 - 40.0 09/24/2017 [facility] HEMATOLOGY Eosinophils 1.5 % 0.0 - 4.0 09/24/2017 [facility] HEMATOLOGY Basophils 1.3 % 0.0 - 1.0 09/24/2017 [facility] HEMATOLOGY Segs-Bands # 4.9 K/CMM 1.5 - 8.1 09/24/2017 [facility] Monocytes 6.2 % 2.0 - 12.0 09/24/2017 [facility] HEMATOLOGY Lymphocytes # 2.1 K/CMM 1.0 - 5.5 09/24/2017 [facility] D-Dimer 0.32 ug/mL FEU 09/24/2017 [facility] Cardiac SPECT multi studies [place] Cardiac SPECT multi studies [place] LOCATION: [facility] [place] This is an Lexiscan myocardial perfusion study. Lexiscan was injected per protocol. Cardiolite was injected during peak stress as well as during rest. The myocardial perfusion was obtained using standard procedure. The myocardial perfusion was normal during both phases. No evidence of ischemia. Ejection fraction was 78 % with normal wall motion. IMPRESSION: Normal myocardial perfusion study. 09/24/2017 - - Read by: Jaqueline Arce MD Dictated Date/time: 09/24/17 16:10 Electronically Signed by: Jaqueline Arce MD 09/24/17 16:11 FINAL REPORT [facility] CARDIAC ENZYMES Troponin-I null 0.00 - 0.40 09/24/2017 [facility] CARDIAC ENZYMES BNP 10 pg/mL <=100 pg/mL 09/24/2017 [facility] CARDIAC ENZYMES CK MB null 0.5 - 3.6 09/24/2017 [facility] CARDIAC ENZYMES Total CK 36 unit/L 12 - 191 09/24/2017 [facility] CARDIAC ENZYMES CK MB Index null 0.0 - 2.5 09/24/2017 [facility] CHEM PANEL eGFR 84 mL/min/1.73m2 09/24/2017 Result Comment: The eGFR is calculated using the [...] from the National Kidney Disease Education Program (NKDEP) which additionally recommends that when the eGFR is used in patients with extremes of body mass index for purposes of drug dosing, the eGFR should be multiplied by the estimated BMI. [facility] CHEM PANEL AGAP 11.1 meq/L 10.0 - 20.0 09/24/2017 [facility] CHEM PANEL B/C Ratio 27 6 - 25 09/24/2017 [facility] CHEM PANEL Bili Total 0.7 mg/dL 0.2 - 1.3 09/24/2017 [facility] CHEM PANEL ALT 64 unit/L 0 - 65 09/24/2017 [facility] CHEM PANEL Total Protein 7.9 g/dL 6.4 - 8.4 09/24/2017 [facility] CHEM PANEL Albumin Lvl 4.0 g/dL 3.5 - 5.0 09/24/2017 [facility] CHEM PANEL Calcium Lvl 9.0 mg/dL 8.5 - 10.5 09/24/2017 [facility] CHEM PANEL Chloride Lvl 103 meq/L 95 - 109 09/24/2017 [facility] CHEM PANEL CO2 28 meq/L 24 - 32 09/24/2017 [facility] CHEM PANEL Globulin 3.9 g/dL 2.7 - 4.2 09/24/2017 [facility] CHEM PANEL AST 27 unit/L 0 - 37 09/24/2017 [facility] CHEM PANEL Alk Phos 127 unit/L 39 - 136 09/24/2017 [facility] CHEM PANEL A/G Ratio 1.0 0.7 - 1.6 09/24/2017 [facility] CHEM PANEL Sodium Lvl 138 meq/L 135 - 145 09/24/2017 [facility] CHEM PANEL Potassium Lvl 4.1 meq/L 3.5 - 5.1 09/24/2017 [facility] CHEM PANEL Creatinine Lvl 0.78 mg/dL 0.50 - 1.40 09/24/2017 [facility] CHEM PANEL BUN 21 mg/dL 7 - 22 09/24/2017 [facility] CHEM PANEL Glucose Lvl 99 mg/dL 70 - 99 09/24/2017 [facility] RDW 14.1 % 11.5 - 14.5 09/24/2017 [facility] MCHC 33.8 g/dL 32.0 - 36.0 09/24/2017 [facility] MCV 87.1 fL 80.0 - 98.0 09/24/2017 [facility] MCH 29.4 pg 27.0 - 31.0 09/24/2017 [facility] MPV 7.8 fL 7.4 - 10.4 09/24/2017 [facility] Platelet 307 K/CMM 133 - 450 09/24/2017 [facility] Hct 44.6 % 36.0 - 48.0 09/24/2017 [facility] Hgb 15.1 g/dL 12.0 - 16.0 09/24/2017 [facility] WBC 7.1 K/CMM 3.7 - 10.4 09/24/2017 [facility] RBC 5.13 M/CMM 4.20 - 5.40 09/24/2017 [facility] Basophils # 0.1 K/CMM 0.0 - 0.2 09/24/2017 [facility] Eosinophils 2.4 % 0.0 - 4.0 09/24/2017 [facility] Segs-Bands # 3.9 K/CMM 1.5 - 8.1 09/24/2017 [facility] Basophils 1.1 % 0.0 - 1.0 09/24/2017 [facility] Lymphocytes 33.2 % 20.0 - 40.0 09/24/2017 [facility] Monocytes 9.2 % 2.0 - 12.0 09/24/2017 [facility] Segs 54.1 % 45.0 - 75.0 09/24/2017 [facility] Lymphocytes # 2.4 K/CMM 1.0 - 5.5 09/24/2017 [facility] Eosinophils # 0.2 K/CMM 0.0 - 0.5 09/24/2017 [facility] Monocytes # 0.7 K/CMM 0.0 - 0.8 09/24/2017 [facility] Chest Pulmonary Embolism CTA Chest Pulmonary Embolism CTA CTA CHEST PE PROTOCOL HISTORY: - chest pain ?PE TECHNIQUE: Thin collimation axial images of the CT chest with IV contrast per CT angiogram protocol. Coronal and sagittal reformatted images were utilized. 3-D reconstructions were obtained. COMPARISON: CT PE study of 04/29/2016. FINDINGS: No filling defect is present within the main, right and left pulmonary arteries. Stable mild cardiomegaly. No pericardial effusion. No mediastinum or hilar mass or adenopathy. Mild right middle lobe and lingula atelectasis or infiltrates. No significant pleural effusion or pneumothorax detected. Grossly normal gallbladder. Diffuse fatty liver infiltration. Diffuse fatty liver infiltration. Impression: 1. No convincing evidence of acute pulmonary embolus detected. 2. Mild right middle lobe and lingula atelectasis or infiltrates. 3. Diffuse fatty liver infiltration. SL: [id number] 09/24/2017 - - Read by: Kwasi Rouse MD Dictated Date/time: 09/24/17 10:43 Electronically Signed by: Kwasi Rouse MD 09/24/17 11:08 FINAL REPORT [facility] Chest 1view DX Chest 1view DX Clinical Indication: - Chest pain. Comparison: 04/29/2016. Technique: Single frontal view of the chest. Findings: Minimal interstitial prominence at the right base likely due to atelectasis. The lungs are otherwise clear. No pleural effusions. The cardiac silhouette is magnified due to technique. IMPRESSION: No acute disease. SL: [id number] 09/24/2017 - - Read by: Markell Tripp MD Dictated Date/time: 09/24/17 06:51 Electronically Signed by: Markell Tripp MD 09/24/17 06:53 FINAL REPORT [facility] CARDIAC ENZYMES Troponin-I null 0.00 - 0.40 04/29/2016 [facility] CARDIAC ENZYMES Total CK 53 unit/L 12 - 191 04/29/2016 [facility] CARDIAC ENZYMES Troponin-I null 0.00 - 0.40 04/29/2016 [facility] CARDIAC ENZYMES CK MB null 0.5 - 3.6 04/29/2016 [facility] CARDIAC ENZYMES CK MB Index null 0.0 - 2.5 04/29/2016 [facility] CHEM PANEL Magnesium Lvl 2.2 mg/dL 1.8 - 2.4 04/29/2016 [facility] CHEM PANEL Lipase Lvl 92 unit/L 73 - 393 04/29/2016 [facility] CHEM PANEL eGFR 70 mL/min/1.73m2 04/29/2016 Result Comment: The eGFR is calculated using the [...] from the National Kidney Disease Education Program (NKDEP) which additionally recommends that when the eGFR is used in patients with extremes of body mass index for purposes of drug dosing, the eGFR should be multiplied by the estimated BMI. [facility] CHEM PANEL B/C Ratio 18 6 - 25 04/29/2016 [facility] CHEM PANEL AGAP 15.2 meq/L 10.0 - 20.0 04/29/2016 [facility] CHEM PANEL Bili Total 0.3 mg/dL 0.2 - 1.3 04/29/2016 [facility] CHEM PANEL Alk Phos 115 unit/L 39 - 136 04/29/2016 [facility] CHEM PANEL A/G Ratio 1.0 0.7 - 1.6 04/29/2016 [facility] CHEM PANEL Globulin 4.1 g/dL 2.7 - 4.2 04/29/2016 [facility] CHEM PANEL Total Protein 8.1 g/dL 6.4 - 8.4 04/29/2016 [facility] CHEM PANEL Calcium Lvl 9.1 mg/dL 8.5 - 10.5 04/29/2016 [facility] CHEM PANEL CO2 25 meq/L 24 - 32 04/29/2016 [facility] CHEM PANEL Chloride Lvl 101 meq/L 95 - 109 04/29/2016 [facility] CHEM PANEL AST 18 unit/L 0 - 37 04/29/2016 [facility] CHEM PANEL Albumin Lvl 4.0 g/dL 3.5 - 5.0 04/29/2016 [facility] CHEM PANEL ALT 38 unit/L 0 - 65 04/29/2016 [facility] CHEM PANEL Potassium Lvl 4.2 meq/L 3.5 - 5.1 04/29/2016 [facility] CHEM PANEL Creatinine Lvl 0.92 mg/dL 0.50 - 1.40 04/29/2016 [facility] CHEM PANEL Sodium Lvl 137 meq/L 135 - 145 04/29/2016 [facility] CHEM PANEL Glucose Lvl 97 mg/dL 70 - 99 04/29/2016 [facility] CHEM PANEL BUN 17 mg/dL 7 - 22 04/29/2016 [facility] HEMATOLOGY PTT 27.3 s 22.9 - 35.8 04/29/2016 [facility] HEMATOLOGY PT 13.2 s 12.0 - 14.7 04/29/2016 [facility] HEMATOLOGY INR 0.98 0.85 - 1.17 04/29/2016 [facility] HEMATOLOGY RDW 13.3 % 11.5 - 14.5 04/29/2016 [facility] HEMATOLOGY Platelet 313 K/CMM 133 - 450 04/29/2016 [facility] HEMATOLOGY MPV 8.1 fL 7.4 - 10.4 04/29/2016 [facility] HEMATOLOGY Hct 44.5 % 36.0 - 48.0 04/29/2016 [facility] MCV 85.8 fL 80.0 - 98.0 04/29/2016 [facility] MCH 29.4 pg 27.0 - 31.0 04/29/2016 [facility] MCHC 34.3 g/dL 32.0 - 36.0 04/29/2016 [facility] HEMATOLOGY RBC 5.18 M/CMM 4.20 - 5.40 04/29/2016 [facility] HEMATOLOGY Hgb 15.3 g/dL 12.0 - 16.0 04/29/2016 [facility] WBC 7.2 K/CMM 3.7 - 10.4 04/29/2016 [facility] HEMATOLOGY Eosinophils # 0.1 K/CMM 0.0 - 0.5 04/29/2016 [facility] HEMATOLOGY Basophils # 0.1 K/CMM 0.0 - 0.2 04/29/2016 [facility] HEMATOLOGY Segs 61.9 % 45.0 - 75.0 04/29/2016 [facility] HEMATOLOGY Segs-Bands # 4.5 K/CMM 1.5 - 8.1 04/29/2016 [facility] Monocytes # 0.5 K/CMM 0.0 - 0.8 04/29/2016 [facility] Lymphocytes # 2.0 K/CMM 1.0 - 5.5 04/29/2016 [facility] HEMATOLOGY Eosinophils 1.1 % 0.0 - 4.0 04/29/2016 [facility] HEMATOLOGY Basophils 1.1 % 0.0 - 1.0 04/29/2016 [facility] HEMATOLOGY Lymphocytes 28.4 % 20.0 - 40.0 04/29/2016 [facility] HEMATOLOGY Monocytes 7.5 % 2.0 - 12.0 04/29/2016 [facility] Chest CTA Chest CTA Patient Name: GERALDIEN PHILLIP : 1960; Age: 55 years y/o Female MR: [id number] Study: Chest CTA 04/29/2016 2:23 PM [employer] Clinical Indication: Chest pain; cp cough x 3 days holding 75cc omni 350 iv; dlp: 671.09 Comparison: 08/08/2012 TECHNIQUE: Sequential trans-axial images were obtained with a multi-detector helical CT after iodinated contrast administration. Coronal and sagittal reconstructions were obtained. 3-D MIP reconstructions performed. FINDINGS: LUNG PARENCHYMA AND PLEURA: There are no lung nodules. There is no interstitial lung disease. There are no pleural effusions.There is no pneumothorax. AIRWAY: The central airway is normal. MEDIASTINUM: There is no mediastinal lymphadenopathy. HEART: There is no pericardial effusion. Heart size normal. No coronary calcification. VASCULAR STRUCTURES: There are no segmental pulmonary emboli noted. The main, right and left pulmonary arteries are normal. The great vessels are unremarkable. The thoracic aorta is unremarkable. There is no thoracic aortic dissection or aneurysm. The superior vena cava is unremarkable. OSSEOUS STRUCTURES: There are no definite significant osseous abnormalities seen. VISUALIZED UPPER ABDOMEN: The visualized upper abdomen is unremarkable. IMPRESSION: 1. Unremarkable CTA chest without evidence of pulmonary embolism. SL: [id number] 04/29/2016 - - Read by: Negro Lorenzo MD Dictated Date/time: 04/29/16 16:01 Electronically Signed by: Negro Lorenzo MD 04/29/16 16:04 FINAL REPORT [facility] Chest 1view DX Chest 1view DX Study: Chest 1view DX 04/29/2016 12:29 PM [employer] Patient Name: GERALDINE PHILLIP MR: [id number] : 1960; Age: 55 years y/o Female Ordering Physician: Fernando Purcell MD Clinical Indication: Chest pain Comparison: 06/08/2014. FINDINGS LUNGS: The lungs are clear of consolidation, pleural effusion, and pneumothorax. HEART AND MEDIASTINUM: Normal size heart. LINES: None. OSSEOUS STRUCTURES: No fracture, dislocation, or suspicious focal osseous lesion. OTHER: None. IMPRESSION: 1. No acute abnormality as above discussed. SL: [id number] 04/29/2016 - - Read by: Yovany Mackay MD Dictated Date/time: 04/29/16 13:22 Electronically Signed by: Yovany Mackay MD 04/29/16 13:22 FINAL REPORT [facility] Digital Mammo Screening Anuj MA Digital Mammo Screening Anuj MA - DIGITAL MAMMO SCREENING ANUJ MA BILATERAL DIGITAL SCREENING MAMMOGRAM WITH CAD: 07/17/2015 CLINICAL: Routine. Current study was evaluated with a Computer Aided Detection (CAD) system. Comparison is made to exams dated: 01/24/2010 mammogram and 10/15/2008 mammogram - [facility]. The tissue of both breasts is heterogeneously dense, which could obscure detection of small masses. Patient complains of intermittent breast pain and/or tenderness. There is a benign calcification in the right breast. There also are benign calcifications in the left breast. No significant masses, calcifications, or other findings are seen in either breast. There has been no significant interval change. IMPRESSION: BENIGN Clinical management of the patient's breast complaints is recommended. There is no mammographic evidence of malignancy. A 1 year screening mammogram is recommended. Richie osuna/spencer:07/17/2015 15:26:17 Injection Molding Machine Offbearer: Angela Boyd, [facility] This exam was dictated and interpreted by [id number] for [facility] [place]. letter sent: Normal [place] Mammogram BI-RADS: 2 Benign 07/17/2015 - - Read by: Richie Fowler MD Dictated Date/time: 07/17/15 15:26 Electronically Signed by: Richie Fowler MD 07/17/15 15:26 FINAL REPORT [facility] Bone Density Scan Bone Density Scan BONE DENSITY: HISTORY: None available. TECHNIQUE: Dual energy x-ray absorptiometry (DEXA) was done over the lumbar spine and left hip. FINDINGS: The total T-score over the lumbar spine is -2.0, consistent with osteopenia. The global T-score over the left hip is -0.1, consistent with normal bone density. The focal T-score over the left femoral neck is -1.6, consistent with osteopenia. The BMD is 0.720 g/sq cm. IMPRESSION: 1. Osteopenia of the lumbar spine. 2. Normal global bone density of the left hip. 3. Focal osteopenia of the left femoral neck. FOR YOUR INFORMATION: The World Health Organization has established that OSTEOPOROSIS occurs at -2.5 or more standard deviations below peak bone mass (T-score). OSTEOPENIA occurs at -1.0 to -2.5 standard deviations (T-score) below peak bone mass. [id number] 07/17/2015 - - Read by: Dudley Tanner MD Dictated Date/time: 07/17/15 15:24 Electronically Signed by: Dudley Tanner MD 07/17/15 15:28 FINAL REPORT [facility] URINE AND STOOL UA Color Ltyellow 01/26/2015 [facility] URINE AND STOOL UA Urobilinogen <=1.0 mg/dL 0.1 - 1.0 01/26/2015 [facility] URINE AND STOOL UA Mucus Few /LPF None Seen /LPF 01/26/2015 [facility] URINE AND STOOL UA WBC 5 /HPF 0 - 5 01/26/2015 [facility] URINE AND STOOL UA Bacteria Occasional /HPF None Seen /HPF 01/26/2015 [facility] URINE AND STOOL UA RBC 2 /HPF 0 - 2 01/26/2015 [facility] URINE AND STOOL UA Nitrite Negative (01/25/15 8:18 PM) Negative 01/26/2015 [facility] URINE AND STOOL UA Leuk Est Negative (01/25/15 8:18 PM) Negative 01/26/2015 [facility] URINE AND STOOL UA Sq Epi Few /LPF Few /LPF 01/26/2015 [facility] URINE AND STOOL UA Bili Negative *NA* (01/25/15 8:18 PM) Negative 01/26/2015 [facility] URINE AND STOOL UA Blood Negative (01/25/15 8:18 PM) Negative 01/26/2015 [facility] URINE AND STOOL UA Spec Grav 1.014 <=1.030 01/26/2015 [facility] URINE AND STOOL UA Turbidity Marked *ABN* (01/25/15 8:18 PM) Clear 01/26/2015 [facility] URINE AND STOOL UA Protein Negative mg/dL Negative mg/dL 01/26/2015 [facility] URINE AND STOOL UA pH 5.0 5.0 - 8.0 01/26/2015 [facility] URINE AND STOOL UA Ketones Negative mg/dL Negative mg/dL 01/26/2015 [facility] URINE AND STOOL UA Glucose Negative mg/dL Negative mg/dL 01/26/2015 [facility] CARDIAC ENZYMES Troponin-I null 0.00 - 0.40 01/25/2015 [facility] CARDIAC ENZYMES CK MB null 0.5 - 3.6 01/25/2015 [facility] CARDIAC ENZYMES Total CK 66 unit/L 12 - 191 01/25/2015 [facility] CARDIAC ENZYMES CK MB Index null 0.0 - 2.5 01/25/2015 [facility] CHEM PANEL Lipase Lvl 64 unit/L 73 - 393 01/25/2015 [facility] CHEM PANEL Amylase Lvl 45 unit/L 25 - 115 01/25/2015 [facility] ELECTROLYTES Potassium Lvl 3.8 meq/L 3.5 - 5.1 01/25/2015 [facility] ELECTROLYTES Sodium Lvl 141 meq/L 135 - 145 01/25/2015 [facility] ELECTROLYTES Chloride Lvl 108 meq/L 95 - 109 01/25/2015 [facility] ELECTROLYTES eGFR 64 mL/min/1.73m2 01/25/2015 Result Comment: The eGFR is calculated using the [...] from the National Kidney Disease Education Program (NKDEP) which additionally recommends that when the eGFR is used in patients with extremes of body mass index for purposes of drug dosing, the eGFR should be multiplied by the estimated BMI. [facility] ELECTROLYTES Calcium Lvl 8.4 mg/dL 8.5 - 10.5 01/25/2015 [facility] ELECTROLYTES AST 16 unit/L 0 - 37 01/25/2015 [facility] ELECTROLYTES ALT 31 unit/L 0 - 65 01/25/2015 [facility] ELECTROLYTES Albumin Lvl 3.7 g/dL 3.5 - 5.0 01/25/2015 [facility] ELECTROLYTES Total Protein 7.4 g/dL 6.4 - 8.4 01/25/2015 [facility] ELECTROLYTES CO2 23 meq/L 24 - 32 01/25/2015 [facility] ELECTROLYTES Creatinine Lvl 1.0 mg/dL 0.5 - 1.4 01/25/2015 [facility] ELECTROLYTES A/G Ratio 1.0 0.7 - 1.6 01/25/2015 [facility] ELECTROLYTES BUN 14 mg/dL 7 - 22 01/25/2015 [facility] ELECTROLYTES Glucose Lvl 85 mg/dL 70 - 99 01/25/2015 [facility] ELECTROLYTES B/C Ratio 14 6 - 25 01/25/2015 [facility] ELECTROLYTES Globulin 3.7 g/dL 2.0 - 4.0 01/25/2015 [facility] ELECTROLYTES Alk Phos 113 unit/L 39 - 136 01/25/2015 [facility] ELECTROLYTES AGAP 13.8 meq/L 10.0 - 20.0 01/25/2015 [facility] ELECTROLYTES Bili Total 0.3 mg/dL 0.2 - 1.3 01/25/2015 [facility] HEMATOLOGY MPV 8.6 fL 7.4 - 10.4 01/25/2015 [facility] HEMATOLOGY Platelet 236 K/CMM 133 - 450 01/25/2015 [facility] HEMATOLOGY RDW 13.0 % 11.5 - 14.5 01/25/2015 [facility] HEMATOLOGY Hct 46.5 % 36.0 - 48.0 01/25/2015 [facility] HEMATOLOGY WBC 8.2 K/CMM 3.7 - 10.4 01/25/2015 [facility] HEMATOLOGY MCHC 32.5 g/dL 32.0 - 36.0 01/25/2015 [facility] HEMATOLOGY MCH 28.5 pg 27.0 - 31.0 01/25/2015 [facility] HEMATOLOGY RBC 5.30 M/CMM 4.20 - 5.40 01/25/2015 [facility] HEMATOLOGY MCV 87.7 fL 80.0 - 98.0 01/25/2015 [facility] HEMATOLOGY Hgb 15.1 g/dL 12.0 - 16.0 01/25/2015 [facility] HEMATOLOGY Basophils # 0.1 K/CMM 0.0 - 0.2 01/25/2015 [facility] HEMATOLOGY Monocytes # 0.7 K/CMM 0.0 - 0.8 01/25/2015 [facility] HEMATOLOGY Lymphocytes # 2.2 K/CMM 1.0 - 5.5 01/25/2015 [facility] HEMATOLOGY Eosinophils # 0.1 K/CMM 0.0 - 0.5 01/25/2015 [facility] HEMATOLOGY Monocytes 8.3 % 2.0 - 12.0 01/25/2015 [facility] HEMATOLOGY Segs 61.9 % 45.0 - 75.0 01/25/2015 [facility] HEMATOLOGY Lymphocytes 27.1 % 20.0 - 40.0 01/25/2015 [facility] HEMATOLOGY Basophils 1.0 % 0.0 - 1.0 01/25/2015 [facility] HEMATOLOGY Eosinophils 1.7 % 0.0 - 4.0 01/25/2015 [facility] HEMATOLOGY Segs-Bands # 5.1 K/CMM 1.5 - 8.1 01/25/2015 [facility] ED Abdomen/Pelvis IV contrast only CT ED Abdomen/Pelvis IV contrast only CT Geraldine Phillip CT ABDOMEN AND PELVIS WITH CONTRAST INDICATION: Mid abdominal pain COMPARISON: None FINDINGS: ABDOMEN: There is no consolidation of the visible lung bases. The liver, spleen, pancreas, gallbladder, adrenal glands, and kidneys appear normal. There is a small hiatal hernia. The stomach and bowel loops are otherwise unremarkable. The appendix is not identified. There is no evidence of acute appendicitis. No free fluid or abnormal fluid collections are seen. No abdominal lymphadenopathy is identified. The abdominal aorta is normal in caliber. PELVIS: The bladder is unremarkable. The uterus and ovaries are not seen, presumed absent. No pelvic mass or lymphadenopathy are identified. BONES: No acute bony abnormalities are seen. IMPRESSION: No acute abdominal or pelvic abnormalities are visualized. SL: 16 01/25/2015 - - Read by: Ghulam Cespedes MD Dictated Date/time: 01/25/15 19:59 Electronically Signed by: Ghulam Cespedes MD 01/25/15 20:04 FINAL REPORT [facility] CARDIAC ENZYMES Troponin-I null 0.00 - 0.40 06/08/2014 [facility] CARDIAC ENZYMES Troponin-I null 0.00 - 0.40 06/08/2014 [facility] CARDIAC ENZYMES CK MB 0.6 ng/mL 0.5 - 3.6 06/08/2014 [facility] CARDIAC ENZYMES Total CK 84 unit/L 12 - 191 06/08/2014 [facility] CARDIAC ENZYMES CK MB Index 0.7 0.0 - 2.5 06/08/2014 [facility] CHEM PANEL eGFR 84 mL/min/1.73m2 06/08/2014 1Result Comment: The eGFR is calculated using [...] from the National Kidney Disease Education Program (NKDEP) which additionally recommends that when the eGFR is used in patients with extremes of body mass index for purposes of drug dosing, the eGFR should be multiplied by the estimated BMI. [facility] CHEM PANEL AST 22 unit/L 0 - 37 06/08/2014 [facility] CHEM PANEL Bili Total 0.4 mg/dL 0.2 - 1.3 06/08/2014 [facility] CHEM PANEL Albumin Lvl 4.2 g/dL 3.5 - 5.0 06/08/2014 [facility] CHEM PANEL ALT 35 unit/L 0 - 65 06/08/2014 [facility] CHEM PANEL AGAP 11.4 meq/L 10.0 - 20.0 06/08/2014 [facility] CHEM PANEL Alk Phos 134 unit/L 39 - 136 06/08/2014 [facility] CHEM PANEL Globulin 3.9 g/dL 2.0 - 4.0 06/08/2014 [facility] CHEM PANEL B/C Ratio 29 6 - 25 06/08/2014 [facility] CHEM PANEL A/G Ratio 1.1 0.7 - 1.6 06/08/2014 [facility] CHEM PANEL Calcium Lvl 9.0 mg/dL 8.5 - 10.5 06/08/2014 [facility] CHEM PANEL Total Protein 8.1 g/dL 6.4 - 8.4 06/08/2014 [facility] CHEM PANEL CO2 27 meq/L 24 - 32 06/08/2014 [facility] CHEM PANEL Creatinine Lvl 0.8 mg/dL 0.5 - 1.4 06/08/2014 [facility] CHEM PANEL Glucose Lvl 89 mg/dL 70 - 99 06/08/2014 2Interpretive Data: Adult reference range values reflect the clinical guidelines of the [place] [employer]. [facility] CHEM PANEL BUN 23 mg/dL 7 - 22 06/08/2014 [facility] CHEM PANEL Sodium Lvl 138 meq/L 135 - 145 06/08/2014 [facility] CHEM PANEL Potassium Lvl 4.4 meq/L 3.5 - 5.1 06/08/2014 [facility] CHEM PANEL Chloride Lvl 104 meq/L 95 - 109 06/08/2014 [facility] PTT 28.1 s 22.9 - 35.8 06/08/2014 4Interpretive Data: Heparin Therapeutic Range: 57 - 92 Seconds [facility] PT 12.9 s 12.0 - 14.7 06/08/2014 [facility] INR 0.97 0.85 - 1.17 06/08/2014 3Interpretive Data: RECOMMENDED RANGES FOR PROTIME INR: 2.0-3.0 for most medical and surgical thromboembolic states. 2.5-3.5 for artificial heart valves and recurrent embolism. INR SHOULD BE USED ONLY FOR PATIENTS ON STABLE ANTICOAGULANT THERAPY. [facility] Hct 43.9 % 36.0 - 48.0 06/08/2014 [facility] Hgb 14.9 g/dL 12.0 - 16.0 06/08/2014 [facility] RBC 4.95 M/CMM 4.20 - 5.40 06/08/2014 [facility] WBC 8.8 K/CMM 3.7 - 10.4 06/08/2014 [facility] Platelet 262 K/CMM 133 - 450 06/08/2014 [facility] RDW 13.2 % 11.5 - 14.5 06/08/2014 [facility] MPV 8.4 fL 7.4 - 10.4 06/08/2014 [facility] MCV 88.8 fL 80.0 - 98.0 06/08/2014 [facility] MCHC 33.9 g/dL 32.0 - 36.0 06/08/2014 [facility] MCH 30.1 pg 27.0 - 31.0 06/08/2014 [facility] Eosinophils # 0.1 K/CMM 0.0 - 0.5 06/08/2014 [facility] Lymphocytes 22.9 % 20.0 - 40.0 06/08/2014 [facility] Segs 68.2 % 45.0 - 75.0 06/08/2014 [facility] Basophils # 0.1 K/CMM 0.0 - 0.2 06/08/2014 [facility] Monocytes # 0.5 K/CMM 0.0 - 0.8 06/08/2014 [facility] HEMATOLOGY Lymphocytes # 2.0 K/CMM 1.0 - 5.5 06/08/2014 [facility] HEMATOLOGY Segs-Bands # 6.0 K/CMM 1.5 - 8.1 06/08/2014 [facility] HEMATOLOGY Eosinophils 1.5 % 0.0 - 4.0 06/08/2014 [facility] HEMATOLOGY Monocytes 6.2 % 2.0 - 12.0 06/08/2014 [facility] HEMATOLOGY Basophils 1.2 % 0.0 - 1.0 06/08/2014 [facility] CARDIAC ENZYMES CK MB 0.7 ng/mL 0.5 - 3.6 12/25/2013 [facility] CARDIAC ENZYMES Total CK 82 unit/L 12 - 191 12/25/2013 [facility] CARDIAC ENZYMES Troponin-I null 0.00 - 0.40 12/25/2013 [facility] CARDIAC ENZYMES CK MB Index 0.9 0.0 - 2.5 12/25/2013 [facility] CHEM PANEL eGFR 73 mL/min/1.73m2 12/25/2013 1Result Comment: The eGFR is calculated using [...] from the National Kidney Disease Education Program (NKDEP) which additionally recommends that when the eGFR is used in patients with extremes of body mass index for purposes of drug dosing, the eGFR should be multiplied by the estimated BMI. [facility] CHEM PANEL Albumin Lvl 3.7 g/dL 3.5 - 5.0 12/25/2013 [facility] CHEM PANEL ALT 37 unit/L 0 - 65 12/25/2013 [facility] CHEM PANEL AST 22 unit/L 0 - 37 12/25/2013 [facility] CHEM PANEL Bili Total 0.4 mg/dL 0.2 - 1.3 12/25/2013 [facility] CHEM PANEL Alk Phos 114 unit/L 39 - 136 12/25/2013 [facility] CHEM PANEL BUN 23 mg/dL 7 - 22 12/25/2013 [facility] CHEM PANEL Sodium Lvl 140 meq/L 135 - 145 12/25/2013 [facility] CHEM PANEL Creatinine Lvl 0.9 mg/dL 0.5 - 1.4 12/25/2013 [facility] CHEM PANEL Total Protein 7.1 g/dL 6.4 - 8.4 12/25/2013 [facility] CHEM PANEL CO2 27 meq/L 24 - 32 12/25/2013 [facility] CHEM PANEL Calcium Lvl 8.3 mg/dL 8.5 - 10.5 12/25/2013 [facility] CHEM PANEL Chloride Lvl 106 meq/L 95 - 109 12/25/2013 [facility] CHEM PANEL Potassium Lvl 4.1 meq/L 3.5 - 5.1 12/25/2013 [facility] CHEM PANEL Glucose Lvl 77 mg/dL 70 - 99 12/25/2013 2Interpretive Data: Adult reference range values reflect the clinical guidelines of the [place] [employer]. [facility] CHEM PANEL Globulin 3.4 g/dL 2.0 - 4.0 12/25/2013 [facility] CHEM PANEL B/C Ratio 26 6 - 25 12/25/2013 [facility] CHEM PANEL AGAP 11.1 meq/L 10.0 - 20.0 12/25/2013 [facility] CHEM PANEL A/G Ratio 1.1 0.7 - 1.6 12/25/2013 [facility] HEMATOLOGY Platelet 238 K/CMM 133 - 450 12/25/2013 [facility] HEMATOLOGY RDW 13.0 % 11.5 - 14.5 12/25/2013 [facility] MCHC 33.6 g/dL 32.0 - 36.0 12/25/2013 [facility] HEMATOLOGY MPV 8.2 fL 7.4 - 10.4 12/25/2013 [facility] HEMATOLOGY WBC 8.4 K/CMM 3.7 - 10.4 12/25/2013 [facility] HEMATOLOGY RBC 4.66 M/CMM 4.20 - 5.40 12/25/2013 [facility] HEMATOLOGY MCH 30.0 pg 27.0 - 31.0 12/25/2013 [facility] HEMATOLOGY MCV 89.3 fL 80.0 - 98.0 12/25/2013 [facility] HEMATOLOGY Hct 41.6 % 36.0 - 48.0 12/25/2013 [facility] HEMATOLOGY Hgb 14.0 g/dL 12.0 - 16.0 12/25/2013 [facility] HEMATOLOGY Basophils 0.8 % 0.0 - 1.0 12/25/2013 [facility] HEMATOLOGY Eosinophils 1.9 % 0.0 - 4.0 12/25/2013 [facility] HEMATOLOGY Basophils # 0.1 K/CMM 0.0 - 0.2 12/25/2013 [facility] HEMATOLOGY Eosinophils # 0.2 K/CMM 0.0 - 0.5 12/25/2013 [facility] HEMATOLOGY Monocytes # 0.6 K/CMM 0.0 - 0.8 12/25/2013 [facility] HEMATOLOGY Lymphocytes # 1.9 K/CMM 1.0 - 5.5 12/25/2013 [facility] HEMATOLOGY Segs-Bands # 5.7 K/CMM 1.5 - 8.1 12/25/2013 [facility] HEMATOLOGY Monocytes 7.5 % 2.0 - 12.0 12/25/2013 [facility] HEMATOLOGY Lymphocytes 22.5 % 20.0 - 40.0 12/25/2013 [facility] HEMATOLOGY Segs 67.3 % 45.0 - 75.0 12/25/2013 [facility] URINE AND STOOL UA Mucus Few /LPF None Seen /LPF 12/25/2013 [facility] URINE AND STOOL UA Color Ltyellow 12/25/2013 [facility] URINE AND STOOL UA Urobilinogen <=1.0 mg/dL 0.1 - 1.0 12/25/2013 [facility] URINE AND STOOL UA Bacteria Occasional /HPF None Seen /HPF 12/25/2013 [facility] URINE AND STOOL UA Nitrite Negative (12/25/13 5:28 PM) Negative 12/25/2013 [facility] URINE AND STOOL UA Leuk Est Negative (12/25/13 5:28 PM) Negative 12/25/2013 [facility] URINE AND STOOL UA Sq Epi Occasional /LPF Few /LPF 12/25/2013 [facility] URINE AND STOOL UA WBC 1 /HPF 0 - 5 12/25/2013 [facility] URINE AND STOOL UA RBC 1 /HPF 0 - 2 12/25/2013 [facility] URINE AND STOOL UA Spec Grav 1.020 <=1.030 12/25/2013 [facility] URINE AND STOOL UA pH 7.0 5.0 - 8.0 12/25/2013 [facility] URINE AND STOOL UA Protein Negative mg/dL Negative mg/dL 12/25/2013 [facility] URINE AND STOOL UA Ketones Negative mg/dL Negative mg/dL 12/25/2013 [facility] URINE AND STOOL UA Glucose Negative mg/dL Negative mg/dL 12/25/2013 [facility] URINE AND STOOL UA Turbidity Slight *ABN* (12/25/13 5:28 PM) Clear 12/25/2013 [facility] URINE AND STOOL UA Bili Negative *NA* (12/25/13 5:28 PM) Negative 12/25/2013 [facility] URINE AND STOOL UA Blood Negative (12/25/13 5:28 PM) Negative 12/25/2013 [facility] CARDIAC ENZYMES CK MB Index null 0.0 - 2.5 08/01/2013 [facility] CARDIAC ENZYMES CK MB null 0.5 - 3.6 08/01/2013 [facility] CARDIAC ENZYMES Troponin-I null 0.00 - 0.40 08/01/2013 [facility] CARDIAC ENZYMES Total CK 68 unit/L 12 - 191 08/01/2013 [facility] CARDIAC ENZYMES BNP 19 pg/mL <=100 pg/mL 08/01/2013 3Interpretive Data: Elevated results are in line with increasing severity of congestive heart failure. Minor elevations between 100 and 300 may be seen with Myocardial Ischemia, Sodium retaining drugs, and compensated/treated heart failure. [facility] CHEM PANEL Phosphorus 3.3 mg/dL 2.5 - 4.5 08/01/2013 [facility] CHEM PANEL Magnesium Lvl 2.1 mg/dL 1.8 - 2.4 08/01/2013 [facility] CHEM PANEL eGFR 73 mL/min/1.73m2 08/01/2013 1Result Comment: The eGFR is calculated using [...] from the National Kidney Disease Education Program (NKDEP) which additionally recommends that when the eGFR is used in patients with extremes of body mass index for purposes of drug dosing, the eGFR should be multiplied by the estimated BMI. [facility] CHEM PANEL ALT 30 unit/L 0 - 65 08/01/2013 [facility] CHEM PANEL Albumin Lvl 3.8 g/dL 3.5 - 5.0 08/01/2013 [facility] CHEM PANEL Alk Phos 113 unit/L 39 - 136 08/01/2013 [facility] CHEM PANEL Bili Total 0.3 mg/dL 0.2 - 1.3 08/01/2013 [facility] CHEM PANEL AST 18 unit/L 0 - 37 08/01/2013 [facility] CHEM PANEL Potassium Lvl 3.8 meq/L 3.5 - 5.1 08/01/2013 [facility] CHEM PANEL Chloride Lvl 106 meq/L 95 - 109 08/01/2013 [facility] CHEM PANEL Creatinine Lvl 0.9 mg/dL 0.5 - 1.4 08/01/2013 [facility] CHEM PANEL Sodium Lvl 140 meq/L 135 - 145 08/01/2013 [facility] CHEM PANEL BUN 17 mg/dL 7 - 22 08/01/2013 [facility] CHEM PANEL Glucose Lvl 143 mg/dL 70 - 99 08/01/2013 2Interpretive Data: Adult reference range values reflect the clinical guidelines of the [place] [employer]. [facility] CHEM PANEL Total Protein 7.6 g/dL 6.4 - 8.4 08/01/2013 [facility] CHEM PANEL Calcium Lvl 9.4 mg/dL 8.5 - 10.5 08/01/2013 [facility] CHEM PANEL CO2 28 meq/L 24 - 32 08/01/2013 [facility] CHEM PANEL Globulin 3.8 g/dL 2.0 - 4.0 08/01/2013 [facility] CHEM PANEL AGAP 9.8 meq/L 10.0 - 20.0 08/01/2013 [facility] CHEM PANEL B/C Ratio 19 6 - 25 08/01/2013 [facility] CHEM PANEL A/G Ratio 1.0 0.7 - 1.6 08/01/2013 [facility] HEMATOLOGY Basophils 0.7 % 0.0 - 1.0 08/01/2013 [facility] HEMATOLOGY Segs-Bands # 4.7 K/CMM 1.5 - 8.1 08/01/2013 [facility] HEMATOLOGY Lymphocytes # 1.8 K/CMM 1.0 - 5.5 08/01/2013 [facility] HEMATOLOGY Monocytes 6.4 % 2.0 - 12.0 08/01/2013 [facility] HEMATOLOGY Lymphocytes 25.6 % 20.0 - 40.0 08/01/2013 [facility] HEMATOLOGY Eosinophils 2.0 % 0.0 - 4.0 08/01/2013 [facility] HEMATOLOGY Segs 65.3 % 45.0 - 75.0 08/01/2013 [facility] Basophils # 0.1 K/CMM 0.0 - 0.2 08/01/2013 [facility] Monocytes # 0.5 K/CMM 0.0 - 0.8 08/01/2013 [facility] Eosinophils # 0.1 K/CMM 0.0 - 0.5 08/01/2013 [facility] PTT 24.6 s 22.9 - 35.8 08/01/2013 5Interpretive Data: Heparin Therapeutic Range: 57 - 92 Seconds [facility] INR 0.93 0.85 - 1.17 08/01/2013 4Interpretive Data: RECOMMENDED RANGES FOR PROTIME INR: 2.0-3.0 for most medical and surgical thromboembolic states. 2.5-3.5 for artificial heart valves and recurrent embolism. INR SHOULD BE USED ONLY FOR PATIENTS ON STABLE ANTICOAGULANT THERAPY. [facility] PT 12.4 s 12.0 - 14.7 08/01/2013 [facility] MCHC 34.6 g/dL 32.0 - 36.0 08/01/2013 [facility] Platelet 273 K/CMM 133 - 450 08/01/2013 [facility] RDW 12.8 % 11.5 - 14.5 08/01/2013 [facility] MCH 29.8 pg 27.0 - 31.0 08/01/2013 [facility] MCV 86.1 fL 81.0 - 99.0 08/01/2013 [facility] Hct 40.9 % 36.0 - 48.0 08/01/2013 [facility] MPV 7.9 fL 7.4 - 10.4 08/01/2013 [facility] WBC 7.1 K/CMM 3.7 - 10.4 08/01/2013 [facility] Hgb 14.2 g/dL 12.0 - 16.0 08/01/2013 [facility] RBC 4.75 M/CMM 4.20 - 5.40 08/01/2013 [facility] Chest 2 views Chest 2 views PA and LATERAL CHEST (2 views) HISTORY: Chest pain Prior studies including a chest radiograph of 08/08/[address] of 08/08/2012 are not available at this time. The report from that study were reviewed. FINDINGS: The lungs are clear. The heart and pulmonary vasculature are within normal limits. There are no pleural effusions. The regional skeleton is unremarkable. CONCLUSION: 1. No active disease. Coding: Chest 2 views CPT Code: 18486 SL: 13 Luis Rose M.D. 08/01/2013 - - Read by: Luis Rose MD Dictated Date/time: 08/01/13 15:02 Electronically Signed by: Luis Rose MD 08/01/13 15:04 FINAL REPORT [facility] Cardiac SPECT multi studies NM Cardiac SPECT multi studies NM This is an Lexiscan myocardial perfusion study. Lexiscan was injected per protocol. Cardiolite was injected during peak stress as well as during rest. The myocardial perfusion was obtained using standard procedure. The myocardial perfusion was normal during both phases. No evidence of ischemia. Ejection fraction was 66 % with normal wall motion. Conclusion: Normal myocardial perfusion study. 08/09/2012 - - Read by: Jaqueline Arce Dictated Date/time: 08/09/12 13:59 Electronically Signed by: Jaqueline Arce MD 08/09/12 13:59 FINAL REPORT [facility] Troponin-I null 0.00 - 0.40 08/09/2012 Normal [facility] Total CK 61 unit/L 12 - 191 08/09/2012 Normal [facility] LDL 146 mg/dL 0 - 129 08/09/2012 [facility] CHD Risk 4.19 3.90 - 5.80 08/09/2012 Normal [facility] CHEMISTRY Trig 197 mg/dL 0 - 200 08/09/2012 Normal [facility] Chol 243 mg/dL 120 - 200 08/09/2012 [facility] HDL 58 mg/dL >=35 08/09/2012 Normal [facility] CHEMISTRY Sodium Lvl 141 meq/L 135 - 145 08/09/2012 Normal [facility] CHEMISTRY Potassium Lvl 4.6 meq/L 3.5 - 5.1 08/09/2012 Normal [facility] CHEMISTRY Chloride Lvl 105 meq/L 95 - 109 08/09/2012 Normal [facility] CHEMISTRY Creatinine Lvl 1.1 mg/dL 0.5 - 1.4 08/09/2012 Normal [facility] CHEMISTRY CO2 32 meq/L 24 - 32 08/09/2012 Normal [facility] CHEMISTRY Glucose Lvl 87 mg/dL 70 - 99 08/09/2012 Normal 3Interpretive Data: Adult reference range values reflect the clinical guidelines of the [place] [employer]. [facility] CHEMISTRY BUN 24 mg/dL 7 - 22 08/09/2012 HI [facility] CHEMISTRY AGAP 8.6 meq/L 10.0 - 20.0 08/09/2012 LOW [facility] CHEMISTRY Calcium Lvl 8.6 mg/dL 8.5 - 10.5 08/09/2012 Normal [facility] CHEMISTRY eGFR 58 mL/min/1.73m2 08/09/2012 NA 1Result Comment: The eGFR is calculated using [...] from the National Kidney Disease Education Program (NKDEP) which additionally recommends that when the eGFR is used in patients with extremes of body mass index for purposes of drug dosing, the eGFR should be multiplied by the estimated BMI. [facility] CHEMISTRY Troponin-I null 0.00 - 0.40 08/09/2012 Normal [facility] CHEMISTRY Total CK 69 unit/L 12 - 191 08/09/2012 Normal [facility] URINALYSIS UA Bili Negative *NA* (08/08/2012 16:00:00) Negative 08/08/2012 NA [facility] URINALYSIS UA Ketones Negative mg/dL *NA* (08/08/2012 16:00:00) Negative 08/08/2012 NA [facility] URINALYSIS UA Leuk Est Negative (08/08/2012 16:00:00) Negative 08/08/2012 Normal [facility] URINALYSIS UA Nitrite Negative (08/08/2012 16:00:00) Negative 08/08/2012 Normal [facility] URINALYSIS UA Blood Negative (08/08/2012 16:00:00) Negative 08/08/2012 Normal [facility] URINALYSIS UA Turbidity Clear (08/08/2012 16:00:00) Clear 08/08/2012 Normal [facility] URINALYSIS UA Glucose Negative mg/dL *NA* (08/08/2012 16:00:00) Negative 08/08/2012 [facility] URINALYSIS UA Protein Negative mg/dL (08/08/2012 16:00:00) Negative 08/08/2012 Normal [facility] URINALYSIS UA pH 5.0 5.0 - 8.0 08/08/2012 Normal [facility] URINALYSIS UA Urobilinogen <=1.0 mg/dL
*NA*
(08/08/2012 16:00:00) <sup> </sup> 0.1 - 1.0 08/08/2012 [facility] URINALYSIS UA Spec Grav S3 <=1.030 08/08/2012 NA [facility] URINALYSIS UA WBC 1 /HPF 0 - 5 08/08/2012 Normal [facility] URINALYSIS UA Sq Epi Occasional /LPF *NA* (08/08/2012 16:00:00) Few 08/08/2012 [facility] URINALYSIS UA RBC 7 /HPF 0 - 2 08/08/2012 HI [facility] URINALYSIS UA Color Yellow *NA* (08/08/2012 16:00:00) Yellow 08/08/2012 [facility] CHEMISTRY CK MB Index 1.0 0.0 - 2.5 08/08/2012 Normal [facility] CHEMISTRY CK MB 0.6 ng/mL 0.5 - 3.6 08/08/2012 Normal [facility] CHEMISTRY Total CK 62 unit/L 12 - 191 08/08/2012 Normal [facility] CHEMISTRY eGFR 65 mL/min/1.73m2 08/08/2012 NA 2Result Comment: The eGFR is calculated using [...] from the National Kidney Disease Education Program (NKDEP) which additionally recommends that when the eGFR is used in patients with extremes of body mass index for purposes of drug dosing, the eGFR should be multiplied by the estimated BMI. [facility] CHEMISTRY Bili Total 0.3 mg/dL 0.2 - 1.3 08/08/2012 Normal [facility] CHEMISTRY BUN 23 mg/dL 7 - 22 08/08/2012 [facility] CHEMISTRY Glucose Lvl 178 mg/dL 70 - 99 08/08/2012 HI 4Interpretive Data: Adult reference range values reflect the clinical guidelines of the [place] [employer]. [facility] CHEMISTRY CO2 26 meq/L 24 - 32 08/08/2012 Normal [facility] CHEMISTRY Creatinine Lvl 1.0 mg/dL 0.5 - 1.4 08/08/2012 Normal [facility] CHEMISTRY AST 16 unit/L 0 - 37 08/08/2012 Normal [facility] CHEMISTRY Albumin Lvl 3.9 g/dL 3.5 - 5.0 08/08/2012 Normal [facility] CHEMISTRY Total Protein 7.2 g/dL 6.4 - 8.4 08/08/2012 Normal [facility] CHEMISTRY Alk Phos 101 unit/L 39 - 136 08/08/2012 Normal [facility] CHEMISTRY ALT 23 unit/L 0 - 65 08/08/2012 Normal [facility] CHEMISTRY B/C Ratio 23 6 - 25 08/08/2012 Normal [facility] CHEMISTRY AGAP 12.7 meq/L 10.0 - 20.0 08/08/2012 Normal [facility] CHEMISTRY Calcium Lvl 8.8 mg/dL 8.5 - 10.5 08/08/2012 Normal [facility] CHEMISTRY A/G Ratio 1.2 0.7 - 1.6 08/08/2012 Normal [facility] CHEMISTRY Globulin 3.3 g/dL 2.0 - 4.0 08/08/2012 Normal [facility] CHEMISTRY Potassium Lvl 3.7 meq/L 3.5 - 5.1 08/08/2012 Normal [facility] CHEMISTRY Chloride Lvl 106 meq/L 95 - 109 08/08/2012 Normal [facility] CHEMISTRY Sodium Lvl 141 meq/L 135 - 145 08/08/2012 Normal [facility] CHEMISTRY LDL 143 mg/dL 0 - 129 08/08/2012 [facility] CHEMISTRY CHD Risk 3.85 3.90 - 5.80 08/08/2012 LOW [facility] CHEMISTRY HDL 62 mg/dL >=35 08/08/2012 Normal [facility] CHEMISTRY Chol 239 mg/dL 120 - 200 08/08/2012 [facility] CHEMISTRY Trig 172 mg/dL 0 - 200 08/08/2012 Normal [facility] CHEMISTRY BNP 14 pg/mL <=100 08/08/2012 Normal 5Interpretive Data: Elevated results are in line with increasing severity of congestive heart failure. Minor elevations between 100 and 300 may be seen with Myocardial Ischemia, Sodium retaining drugs, and compensated/treated heart failure. [facility] CHEMISTRY Magnesium Lvl 1.8 mg/dL 1.8 - 2.4 08/08/2012 Normal [facility] CHEMISTRY Phosphorus 3.3 mg/dL 2.5 - 4.5 08/08/2012 Normal [facility] CHEMISTRY Troponin-I null 0.00 - 0.40 08/08/2012 Normal [facility] HEMATOLOGY MPV 8.1 fL 7.4 - 10.4 08/08/2012 Normal [facility] MCV 90.6 fL 81.0 - 99.0 08/08/2012 Normal [facility] MCHC 33.3 g/dL 32.0 - 36.0 08/08/2012 Normal [facility] MCH 30.2 pg 27.0 - 31.0 08/08/2012 Normal [facility] Hct 42.0 % 36.0 - 48.0 08/08/2012 Normal [facility] Platelet 242 K/CMM 133 - 450 08/08/2012 Normal [facility] RDW 13.7 % 11.5 - 14.5 08/08/2012 Normal [facility] WBC 6.5 K/CMM 3.7 - 10.4 08/08/2012 Normal [facility] Hgb 14.0 g/dL 12.0 - 16.0 08/08/2012 Normal [facility] RBC 4.63 M/CMM 4.20 - 5.40 08/08/2012 Normal [facility] D-Dimer 0.27 ug/mL FEU 08/08/2012 NA 7Interpretive Data: In DIC, quantitative D- Dimer is generally greater than 0.66 ug/mL FEU. Values of quantitative D-Dimer less than 0.40 ug/mL FEU have been reported to be associated with a low probability of deep vein thrombosis/pulmonary embolism. This test alone should not be used to rule out DVT/PE. [facility] HEMATOLOGY PT 13.1 s 12.0 - 14.7 08/08/2012 Normal [facility] PTT 24.8 s 22.9 - 35.8 08/08/2012 Normal 8Interpretive Data: Heparin Therapeutic Range: 57 - 92 Seconds [facility] INR 0.97 0.85 - 1.17 08/08/2012 Normal 6Interpretive Data: RECOMMENDED RANGES FOR PROTIME INR: 2.0-3.0 for most medical and surgical thromboembolic states. 2.5-3.5 for artificial heart valves and recurrent embolism. INR SHOULD BE USED ONLY FOR PATIENTS ON STABLE ANTICOAGULANT THERAPY. [facility] HEMATOLOGY Eosinophils # 0.2 K/CMM 0.0 - 0.5 08/08/2012 Normal [facility] HEMATOLOGY Basophils # 0.0 K/CMM 0.0 - 0.2 08/08/2012 Normal [facility] HEMATOLOGY Basophils 0.6 % 0.0 - 1.0 08/08/2012 Normal [facility] HEMATOLOGY Eosinophils 2.8 % 0.0 - 4.0 08/08/2012 Normal [facility] HEMATOLOGY Monocytes 7.2 % 2.0 - 12.0 08/08/2012 Normal [facility] HEMATOLOGY Lymphocytes 23.3 % 20.0 - 40.0 08/08/2012 Normal [facility] HEMATOLOGY Monocytes # 0.5 K/CMM 0.0 - 0.8 08/08/2012 Normal [facility] HEMATOLOGY Lymphocytes # 1.5 K/CMM 1.0 - 5.5 08/08/2012 Normal [facility] HEMATOLOGY Segs-Bands # 4.3 K/CMM 1.5 - 8.1 08/08/2012 Normal [facility] HEMATOLOGY Segs 66.1 % 45.0 - 75.0 08/08/2012 Normal [facility] CHEMISTRY Total CK 74 U/L 12 - 05/06/2011 Normal [facility] CHEMISTRY Troponin-I null 0.00 - 0.40 05/06/2011 Normal [facility] CHEMISTRY CK MB 0.7 ng/mL 0.5 - 3.6 05/06/2011 Normal [facility] CHEMISTRY Total CK 69 U/L - 05/06/2011 Normal [facility] CHEMISTRY CK MB Index 1.0 0.0 - 2.5 05/06/2011 Normal [facility] CHEMISTRY Troponin-I null 0.00 - 0.40 05/06/2011 Normal [facility] CHEMISTRY BNP 21 pg/mL <=100 05/05/2011 Normal 2Interpretive Data: Elevated results are in line with increasing severity of congestive heart failure. Minor elevations between 100 and 300 may be seen with Myocardial Ischemia, Sodium retaining drug s, and compensated/treated heart failure. [facility] CHEMISTRY Total CK 84 U/L 12 - 05/05/2011 Normal [facility] CHEMISTRY CK MB null 0.5 - 3.6 05/05/2011 Normal [facility] CHEMISTRY AST 12 U/L 0 - 37 05/05/2011 Normal [facility] CHEMISTRY Alk Phos 85 U/L 39 - 136 05/05/2011 Normal [facility] CHEMISTRY AGAP 11.8 meq/L 10.0 - 20.0 05/05/2011 Normal [facility] CHEMISTRY Bili Total 0.4 mg/dL 0.2 - 1.3 05/05/2011 Normal [facility] CHEMISTRY A/G Ratio 1.1 0.7 - 1.6 05/05/2011 Normal [facility] CHEMISTRY Globulin 3.7 g/dL 2.0 - 4.0 05/05/2011 Normal [facility] CHEMISTRY B/C Ratio 15 6 - 25 05/05/2011 Normal [facility] CHEMISTRY ALT 19 U/L 0 - 65 05/05/2011 Normal [facility] CHEMISTRY Calcium Lvl 9.3 mg/dL 8.5 - 10.5 05/05/2011 Normal [facility] CHEMISTRY CO2 25 meq/L 24 - 32 05/05/2011 Normal [facility] CHEMISTRY Albumin Lvl 4.0 g/dL 3.5 - 5.0 05/05/2011 Normal [facility] CHEMISTRY Total Protein 7.7 g/dL 6.4 - 8.4 05/05/2011 Normal [facility] CHEMISTRY Chloride Lvl 106 meq/L 95 - 109 05/05/2011 Normal [facility] CHEMISTRY Sodium Lvl 139 meq/L 135 - 145 05/05/2011 Normal [facility] CHEMISTRY Potassium Lvl 3.8 meq/L 3.5 - 5.1 05/05/2011 Normal [facility] CHEMISTRY BUN 15 mg/dL 7 - 22 05/05/2011 Normal [facility] CHEMISTRY Glucose Lvl 92 mg/dL 05/05/2011 NA 1Interpretive Data: Reference Ranges : 0 - 7 days : 41 - 90 mg/dL7 days - 150 yrs : 70 - 99 mg/dL (fasting), based on the clinical recommendations of the [place] [employer]. [facility] CHEMISTRY Creatinine Lvl 1.0 mg/dL 0.5 - 1.4 05/05/2011 Normal [facility] CHEMISTRY Troponin-I null 0.00 - 0.40 05/05/2011 Normal [facility] CHEMISTRY CK MB Index null 0.0 - 2.5 05/05/2011 Normal [facility] HEMATOLOGY Hgb 13.5 g/dL 12.0 - 16.0 05/05/2011 Normal [facility] HEMATOLOGY RDW 13.1 % 11.5 - 14.5 05/05/2011 Normal [facility] MPV 8.2 fL 7.4 - 10.4 05/05/2011 Normal [facility] MCV 86.5 fL 81.0 - 99.0 05/05/2011 Normal [facility] MCHC 35.4 g/dL 32.0 - 36.0 05/05/2011 Normal [facility] MCH 30.6 pg 27.0 - 31.0 05/05/2011 Normal [facility] Platelet 256 K/CMM 133 - 450 05/05/2011 Normal [facility] Hct 38.1 % 36.0 - 48.0 05/05/2011 Normal [facility] RBC 4.40 M/CMM 4.20 - 5.40 05/05/2011 Normal [facility] WBC 5.3 K/CMM 3.7 - 10.4 05/05/2011 Normal [facility] D-Dimer 0.31 ug/mL FEU 05/05/2011 NA 3Interpretive Data: In DIC, quantitative D- Dimer is generally greater than 0.66 ug/mL FEU. Values of quantitative D-Dimer less than 0.40 ug/mL FEU have been reported to be associated with a low probabil ity of deep vein thrombosis/pulmonary embolism. This test alone should not be used to rule out DVT/PE. [facility] HEMATOLOGY Eosinophils 3.1 % 0.0 - 4.0 05/05/2011 Normal [facility] Basophils 0.7 % 0.0 - 1.0 05/05/2011 Normal [facility] Eosinophils # 0.2 K/CMM 0.0 - 0.5 05/05/2011 Normal [facility] Monocytes # 0.3 K/CMM 0.0 - 0.8 05/05/2011 Normal [facility] HEMATOLOGY Basophils # 0.0 K/CMM 0.0 - 0.2 05/05/2011 Normal [facility] Segs-Bands # 3.4 K/CMM 1.5 - 8.1 05/05/2011 Normal [facility] Lymphocytes # 1.3 K/CMM 1.0 - 5.5 05/05/2011 Normal [facility] Monocytes 6.4 % 2.0 - 12.0 05/05/2011 Normal [facility] HEMATOLOGY Lymphocytes 25.1 % 20.0 - 40.0 05/05/2011 Normal [facility] HEMATOLOGY Segs 64.7 % 45.0 - 75.0 05/05/2011 Normal [facility] Vital Signs Vital Sign Value Date Comments Source Heart Rate 63 09/24/2017 [facility] Temperature Oral (F) 98.3 F 09/24/2017 [facility] Respitory Rate 17 09/24/2017 [facility] Systolic (mm Hg) 106 09/24/2017 [facility] Diastolic (mm Hg) 64 09/24/2017 [facility] Height 160.02 cm 09/24/2017 [facility] Weight 80.909 09/24/2017 [facility] BMI Calculated 31.6 09/24/2017 [facility] Temperature Oral (F) 98.4 F 09/24/2017 [facility] Heart Rate 59 09/24/2017 [facility] Systolic (mm Hg) 113 09/24/2017 [facility] Diastolic (mm Hg) 75 09/24/2017 [facility] Respitory Rate 20 09/24/2017 [facility] Respitory Rate 22 09/24/2017 [facility] Temperature Oral (F) 97.2 F 09/24/2017 [facility] Systolic (mm Hg) 118 09/24/2017 [facility] Diastolic (mm Hg) 69 09/24/2017 [facility] Weight 80.909 09/24/2017 [facility] Height 160.02 cm 09/24/2017 [facility] BMI Calculated 31.6 09/24/2017 [facility] Heart Rate 65 09/24/2017 [facility] Heart Rate 66 04/29/2016 [facility] Systolic (mm Hg) 110 04/29/2016 [facility] Diastolic (mm Hg) 68 04/29/2016 [facility] Temperature Oral (F) 97.8 F 04/29/2016 [facility] Respitory Rate 18 04/29/2016 [facility] Respitory Rate 18 04/29/2016 [facility] Systolic (mm Hg) 112 04/29/2016 [facility] Diastolic (mm Hg) 74 04/29/2016 [facility] Heart Rate 70 04/29/2016 [facility] Temperature Oral (F) 97.7 F 04/29/2016 [facility] Respitory Rate 20 04/29/2016 [facility] Systolic (mm Hg) 102 04/29/2016 [facility] Diastolic (mm Hg) 66 04/29/2016 [facility] Heart Rate 74 04/29/2016 [facility] Height 160.02 cm 04/29/2016 [facility] Weight 79.545 04/29/2016 [facility] BMI Calculated 31.06 04/29/2016 [facility] Temperature Oral (F) 97.7 F 04/29/2016 [facility] Heart Rate 67 01/26/2015 [facility] Systolic (mm Hg) 133 01/26/2015 [facility] Diastolic (mm Hg) 88 01/26/2015 [facility] Respitory Rate 18 01/26/2015 [facility] Temperature Oral (F) 98.2 F 01/25/2015 [facility] Respitory Rate 18 01/25/2015 [facility] Heart Rate 51 01/25/2015 [facility] Systolic (mm Hg) 131 01/25/2015 [facility] Diastolic (mm Hg) 83 01/25/2015 [facility] Weight 77.273 01/25/2015 [facility] Height 160.02 cm 01/25/2015 [facility] BMI Calculated 30.18 01/25/2015 [facility] Heart Rate 59 01/25/2015 [facility] Respitory Rate 18 01/25/2015 [facility] Temperature Oral (F) 98.1 F 01/25/2015 [facility] Systolic (mm Hg) 147 01/25/2015 [facility] Diastolic (mm Hg) 93 01/25/2015 [facility] Temperature Oral (F) 98.2 F 06/08/2014 [facility] Respitory Rate 18 06/08/2014 [facility] Systolic (mm Hg) 129 06/08/2014 [facility] Diastolic (mm Hg) 74 06/08/2014 [facility] Systolic (mm Hg) 134 06/08/2014 [facility] Diastolic (mm Hg) 72 06/08/2014 [facility] Respitory Rate 10 06/08/2014 [facility] Systolic (mm Hg) 123 06/08/2014 [facility] Diastolic (mm Hg) 67 06/08/2014 [facility] Respitory Rate 10 06/08/2014 [facility] Heart Rate 100 06/08/2014 [facility] Weight 75 06/08/2014 [facility] BMI Calculated 29.29 06/08/2014 [facility] Height 160.02 cm 06/08/2014 [facility] Temperature Oral (F) 97.9 F 06/08/2014 [facility] Respitory Rate 17 12/26/2013 [facility] Temperature Oral (F) 98.2 F 12/26/2013 [facility] Heart Rate 52 12/26/2013 [facility] Diastolic (mm Hg) 74 12/26/2013 [facility] Systolic (mm Hg) 133 12/26/2013 [facility] Temperature Oral (F) 98.3 F 12/26/2013 [facility] Heart Rate 52 12/26/2013 [facility] Diastolic (mm Hg) 64 12/26/2013 [facility] Systolic (mm Hg) 119 12/26/2013 [facility] Respitory Rate 11 12/26/2013 [facility] Respitory Rate 17 12/26/2013 [facility] Diastolic (mm Hg) 88 12/26/2013 [facility] Systolic (mm Hg) 157 12/26/2013 [facility] Heart Rate 55 12/26/2013 [facility] Temperature Oral (F) 98.6 F 12/25/2013 [facility] Height 160.02 cm 12/25/2013 [facility] BMI Calculated 27.51 12/25/2013 [facility] Weight 70.455 12/25/2013 [facility] Weight 151 11/02/2013 [facility] Height 62 11/02/2013 [facility] Heart Rate 59 11/02/2013 [facility] Diastolic (mm Hg) 76 11/02/2013 [facility] Systolic (mm Hg) 120 11/02/2013 [facility] Heart Rate 52 08/01/2013 [facility] Respitory Rate 18 08/01/2013 [facility] Temperature Oral (F) 98.2 F 08/01/2013 [facility] Diastolic (mm Hg) 84 08/01/2013 [facility] Systolic (mm Hg) 117 08/01/2013 [facility] Weight 68.182 08/01/2013 [facility] Height 160.02 cm 08/01/2013 [facility] BMI Calculated 26.63 08/01/2013 [facility] Temperature Oral (F) 98.5 F 08/01/2013 [facility] Systolic (mm Hg) 125 08/01/2013 [facility] Heart Rate 73 08/01/2013 [facility] Diastolic (mm Hg) 74 08/01/2013 [facility] Respitory Rate 16 08/01/2013 [facility] Systolic (mm Hg) 108 08/09/2012 [facility] Respitory Rate 16 08/09/2012 [facility] Heart Rate 55 08/09/2012 [facility] Temperature Oral (F) 97.5 F 08/09/2012 [facility] Diastolic (mm Hg) 66 08/09/2012 [facility] Respitory Rate 14 08/09/2012 [facility] Diastolic (mm Hg) 66 08/09/2012 [facility] Systolic (mm Hg) 117 08/09/2012 [facility] Respitory Rate 16 08/09/2012 [facility] Temperature Oral (F) 97.9 F 08/09/2012 [facility] Heart Rate 49 08/09/2012 [facility] Heart Rate 55 08/09/2012 [facility] Temperature Oral (F) 98.0 F 08/09/2012 [facility] Systolic (mm Hg) 102 08/09/2012 [facility] [facility] Diastolic (mm Hg) 68 08/09/2012 [facility] Height 160.02 cm 08/08/2012 [facility] Weight 70.455 08/08/2012 [facility] Respitory Rate 20 05/07/2011 [facility] Systolic (mm Hg) 110 05/07/2011 [facility] Respitory Rate 95 05/07/2011 [facility] Heart Rate 59 05/07/2011 [facility] Temperature Oral (F) 98.1 F 05/07/2011 [facility] Diastolic (mm Hg) 69 05/07/2011 [facility] Respitory Rate 18 05/07/2011 [facility] Temperature Oral (F) 98.1 F 05/07/2011 [facility] Systolic (mm Hg) 110 05/07/2011 [facility] Diastolic (mm Hg) 69 05/07/2011 [facility] Heart Rate 59 05/07/2011 [facility] Temperature Oral (F) 98.0 F 05/07/2011 [facility] Heart Rate 70 05/07/2011 [facility] Diastolic (mm Hg) 74 05/07/2011 [facility] Systolic (mm Hg) 118 05/07/2011 [facility] Height 160.02 cm 05/05/2011 [facility] Weight 65.000 05/05/2011 [facility] Encounters Location Location Details Encounter Type Encounter Number Reason For Visit Attending Provider ADM Date DC Date Status Source [facility] OU [id number] GEOFFCAIN ALLENLABY 05/05/2011 05/07/2011 Active [facility] OU [id number] JAQUELINE ARCE 08/08/2012 08/09/2012 Active [facility] [id number] Eugneio Gutierrez 08/01/2013 08/01/2013 [facility] GLASS BELT SANDER- vomiting/ chest discomfort [id number] 11/02/2013 11/02/2013 [facility] [id number] Brock Ocampo 12/25/2013 12/26/2013 [facility] [id number] Carlos Velasco 06/08/2014 06/08/2014 [facility] [id number] Robert Davis 01/25/2015 01/26/2015 [facility] [place] [facility] [id number] Bhargavi Padillaben 01/28/2015 01/29/2015 [facility] [place] [facility] Outpatient [id number] Nikki Cruzy 07/17/2015 07/18/2015 [facility] Emergency [id number] Fernando Rothmansoff 04/29/2016 04/29/2016 [facility] Observation [id number] [facility] 09/24/2017 09/24/2017 [facility] Observation [id number] [facility] 09/24/2017 09/24/2017 [facility] Procedures Procedure Code Date Perfomer Comments Source Abdominal hysterectomy [id number] [place] [facility] [id number] [facility] Bilateral inguinal hernia repair [id number] [facility] Catheterization of left heart [id number] [facility] section [id number] [facility] Colonoscopy [id number] [facility] Right heart catheterization [id number] [facility] Ultrasound scan of lower abdomen [id number] [place] Abdominal hysterectomy [id number] [facility] [place] Appendectomy [id number] [facility] [place] Bilateral inguinal hernia repair [id number] [facility] [place] Catheterization of left heart [id number] [facility] [place] section [id number] [facility] [place] Colonoscopy [id number] [facility] [place] Right heart catheterization [id number] [facility] [place] Ultrasound scan of lower abdomen [id number] [facility] [place]
--- OUTSIDE RECORDS SUMMARY | 2018-02-04 11:29 | XMS REPORT | CCD ---
Author Author Auto Generated Organization [facility] Address Unknown Phone Unavailable Care Team Providers Care Hand I Cutter Name Role Phone Suly Son CP Allergies, Adverse Reactions, Alerts Substance Reaction Status NKDA Active Problem List Condition Effective Dates Status Chest pain Active Chronic depression Active Heart septal defects Active HLD - Hyperlipidemia Active Medications Medication Instructions Start Date End Date Status GI cocktail 30 mL, Route: PO, Drug Form: SUSP, 05/06/2011 05/07/2011 Discontinued Q6H, Start date: 05/06/11 6:30:00, Duration: 30 day, Stop date: 06/05/11 6:00:00 aspirin 325 mg 325 mg, Route: PO, Drug form: TAB, 05/05/2011 05/05/2011 Completed tablet ONCE, Priority: STAT, Start date: 05/05/11 12:17:00, Stop date: 05/05/11 12:17:00 Saline Flush 0.9% 5 ml, Route: IVP, Drug Form: INJ, 05/05/2011 05/05/2011 Discontinued PRN, PRN Line Flush, Start date: 05/05/11 12:17:00, Duration: 24 hr, Stop date: 05/06/11 12:16:00 nitroglycerin 2% 0.5 inch, Route: TOP, Drug Form: 05/05/2011 05/05/2011 Completed ointment OINT, ONCE, STAT, Start date: 05/05/11 12:17:00, Stop date: 05/05/11 12:17:00 morphine Sulfate 2 mg, Route: IVP, ONCE, Priority: 05/05/2011 05/05/2011 Completed STAT, Start date: 05/05/11 12:17:00, Stop date: 05/05/11 12:17:00 omeprazole 20 mg 20 mg, 1 cap, PO, Daily, 30 cap, 05/07/2011 Ordered oral delayed release Substitution Allowed capsule morphine Sulfate 2 mg, 0.2 mL, Route: IVP, Drug 05/05/2011 05/07/2011 Discontinued form: INJ, Q2H, PRN Chest Pain, Morphine sulfate 1-2 mg IVP Q 4 hours PRN chest pain, Priority: NOW, Start date: 05/05/11 16:56:00, Stop date: 06/04/11 16:55:00 sertraline 100 mg 100 mg, 1 tab, PO, Daily, 05/05/2011 Ordered oral tablet Substitution Allowed morphine Sulfate 2 mg, Route: IVP, ONCE, Start date: 05/05/2011 05/05/2011 Completed 05/05/11 14:17:00, Stop date: 05/05/11 14:17:00 morphine Sulfate 1 mg, 0.1 mL, Route: IV, Drug form: 05/05/2011 05/07/2011 Discontinued INJ, Q4H, PRN Chest Pain, Start date: 05/05/11 17:10:00, Duration: 30 day, Stop date: 06/04/11 17:09:00 Protonix 40 mg, 1 tab, Route: PO, Drug form: 05/06/2011 05/07/2011 Discontinued ECTAB, Daily, Priority: NOW, Start date: 05/06/11 10:14:00, Duration: 30 day, Stop date: 06/05/11 9:00:00 sertraline 100 mg, 1 tab, Route: PO, Drug 05/07/2011 05/07/2011 Discontinued form: TAB, Daily, Start date: 05/07/11 9:00:00, Duration: 30 day, Stop date: 06/05/11 9:00:00 Saline Flush 0.9% 5 ml, Route: IVP, Drug Form: INJ, 05/05/2011 05/07/2011 Discontinued Q12H, Start date: 05/05/11 21:00:00, Duration: 30 day, Stop date: 06/04/11 9:00:00 Saline Flush 0.9% 5 ml, Route: IVP, Drug Form: INJ, 05/05/2011 05/07/2011 Discontinued PRN, PRN Line Flush, Start date: 05/05/11 16:12:00, Duration: 30 day, Stop date: 06/04/11 16:11:00 nitroglycerin SL Tab 0.4 mg, 1 tab, Route: SL, Drug 05/05/2011 05/07/2011 Discontinued form: TAB, Q5Min, PRN Chest Pain, Start date: 05/05/11 16:12:00, Duration: 3 doses or times, Stop date: Limited # of times nitroglycerin 2% 0.5 inch, Route: TOP, Drug Form: 05/05/2011 05/07/2011 Discontinued ointment OINT, TID, Start date: 05/05/11 17:00:00, Duration: 30 day, Stop date: 06/04/11 13:00:00 ondansetron 4 mg, 1 tab, Route: PO, Drug form: 05/05/2011 05/07/2011 Discontinued TAB, Q8H, PRN Nausea & Vomiting, Start date: 05/05/11 16:12:00, Duration: 30 day, Stop date: 06/04/11 16:11:00 aspirin 325 mg 325 mg, 1 tab, Route: PO, Drug 05/05/2011 05/05/2011 Completed tablet form: TAB, ONCE, Start date: 05/05/11 16:12:00, Stop date: 05/05/11 16:12:00 Vital Signs Most recent to oldest [Reference Range]: 1 2 3 Height 160.02 cm (05/05/2011 12:03:00) Temperature Oral [96.4-99.1 DegF] 98.1 DegF (05/07/2011 08:06:00) 98.1 DegF (05/07/2011 04:00:00) 98.0 DegF (05/07/2011 00:00:00) Systolic Blood Pressure [90-140 mmHg] 110 mmHg (05/07/2011 08:06:00) 110 mmHg (05/07/2011 04:00:00) 118 mmHg (05/07/2011 00:00:00) Diastolic Blood Pressure [60-90 mmHg] 69 mmHg (05/07/2011 08:06:00) 69 mmHg (05/07/2011 04:00:00) 74 mmHg (05/07/2011 00:00:00) Respiratory Rate [14-20 BRMIN] 20 BRMIN (05/07/2011 08:07:00) 95 BRMIN *HI* (05/07/2011 08:06:00) 18 BRMIN (05/07/2011 04:00:00) Peripheral Pulse Rate [60-100 bpm] 59 bpm *LOW* (05/07/2011 08:06:00) 59 bpm *LOW* (05/07/2011 04:00:00) 70 bpm (05/07/2011 00:00:00) Weight 65.000 kg (05/05/2011 12:03:00) Results CHEMISTRY Most recent to oldest [Reference Range]: 1 2 3 Sodium Lvl [135-145 mEq/L] 139 mEq/L (05/05/2011 13:00:00) Potassium Lvl [3.5-5.1 mEq/L] 3.8 mEq/L (05/05/2011 13:00:00) Chloride Lvl [95-109 mEq/L] 106 mEq/L (05/05/2011 13:00:00) CO2 [24-32 mEq/L] 25 mEq/L (05/05/2011 13:00:00) AGAP [10.0-20.0 mEq/L] 11.8 mEq/L (05/05/2011 13:00:00) Creatinine Lvl [0.5-1.4 mg/dL] 1.0 mg/dL (05/05/2011 13:00:00) BUN [7-22 mg/dL] 15 mg/dL (05/05/2011 13:00:00) B/C Ratio [6-25] 15 (05/05/2011 13:00:00) Glucose Lvl 92 mg/dL 1 *NA* (05/05/2011 13:00:00) Total Protein [6.4-8.4 g/dL] 7.7 g/dL (05/05/2011 13:00:00) Albumin Lvl [3.5-5.0 g/dL] 4.0 g/dL (05/05/2011 13:00:00) Globulin [2.0-4.0 g/dL] 3.7 g/dL (05/05/2011 13:00:00) A/G Ratio [0.7-1.6] 1.1 (05/05/2011 13:00:00) Calcium Lvl [8.5-10.5 mg/dL] 9.3 mg/dL (05/05/2011 13:00:00) ALT [0-65 U/L] 19 U/L (05/05/2011 13:00:00) AST [0-37 U/L] 12 U/L (05/05/2011 13:00:00) Alk Phos [39-136 U/L] 85 U/L (05/05/2011 13:00:00) Bili Total [0.2-1.3 mg/dL] 0.4 mg/dL (05/05/2011 13:00:00) Total CK [12-191 U/L] 74 U/L (05/06/2011 00:51:00) 69 U/L (05/05/2011 19:09:00) 84 U/L (05/05/2011 13:00:00) CK MB [0.5-3.6 ng/mL] 0.7 ng/mL (05/05/2011 19:09:00) <0.5 ng/mL (05/05/2011 13:00:00) CK MB Index [0.0-2.5] 1.0 (05/05/2011 19:09:00) <0.6 (05/05/2011 13:00:00) Troponin-I [0.00-0.40 ng/mL] <0.02 ng/mL (05/06/2011 00:51:00) <0.02 ng/mL (05/05/2011 19:09:00) <0.02 ng/mL (05/05/2011 13:00:00) BNP [<=100 pg/mL] 21 pg/mL 2 (05/05/2011 13:00:00) 1Interpretive Data: Reference Ranges : 0 - 7 days : 41 - 90 mg/dL7 days - 150 yrs : 70 - 99 mg/dL (fasting), based on the clinical recommendations of the [place] [employer]. 2Interpretive Data: Elevated results are in line with increasing severity of congestive heart failure. Minor elevations between 100 and 300 may be seen with Myocardial Ischemia, Sodium retaining drugs, and compensated/treated heart failure. HEMATOLOGY Most recent to oldest [Reference Range]: 1 2 3 WBC [3.7-10.4 K/CMM] 5.3 K/CMM (05/05/2011 13:00:00) RBC [4.20-5.40 M/CMM] 4.40 M/CMM (05/05/2011 13:00:00) Hgb [12.0-16.0 g/dL] 13.5 g/dL (05/05/2011 13:00:00) Hct [36.0-48.0 %] 38.1 % (05/05/2011:00:00) MCV [81.0-99.0 fL] 86.5 fL (05/05/2011:00:00) MCH [27.0-31.0 pg] 30.6 pg (05/05/2011:00:00) MCHC [32.0-36.0 g/dL] 35.4 g/dL (05/05/2011 13:00:00) RDW [11.5-14.5 %] 13.1 % (05/05/2011:00:00) Platelet [133-450 K/CMM] 256 K/CMM (05/05/2011 13:00:00) MPV [7.4-10.4 fL] 8.2 fL (05/05/2011:00:00) Segs [45.0-75.0 %] 64.7 % (05/05/2011:00:00) Lymphocytes [20.0-40.0 %] 25.1 % (05/05/2011:00:00) Monocytes [2.0-12.0 %] 6.4 % (05/05/2011 13:00:00) Eosinophils [0.0-4.0 %] 3.1 % (05/05/2011 13:00:00) Basophils [0.0-1.0 %] 0.7 % (05/05/2011:00:00) Segs-Bands # [1.5-8.1 K/CMM] 3.4 K/CMM (05/05/2011 13:00:00) Lymphocytes # [1.0-5.5 K/CMM] 1.3 K/CMM (05/05/2011:00:00) Monocytes # [0.0-0.8 K/CMM] 0.3 K/CMM (05/05/2011 13:00:00) Eosinophils # [0.0-0.5 K/CMM] 0.2 K/CMM (05/05/2011 13:00:00) Basophils # [0.0-0.2 K/CMM] 0.0 K/CMM (05/05/2011 13:00:00) D-Dimer 0.31 ug/mL FEU 3 *NA* (05/05/2011 13:00:00) 3Interpretive Data: In DIC, quantitative D-Dimer is generally greater than 0.66 ug/mL FEU. Values of quantitative D-Dimer less than 0.40 ug/mL FEU have been reported to be associated with a low probability of deep vein thrombosis/pulmonary embolism. This test alone should not be used to rule out DVT/PE.
--- OUTSIDE RECORDS SUMMARY | 2018-02-04 11:30 | XMS REPORT | Summary of Care ---
Author Author [facility] Organization [facility] Address Unknown Phone Unavailable Encounter PRASANNA Roe(CALE) [id number] Date(s): 04/29/16 - 04/29/16 [facility] [address] [place] [address]- Discharge Diagnosis: Atypical chest pain Discharge Diagnosis: Acute anxiety Discharge Disposition: Home or Self Care Attending Physician: Fernando Purcell MD Vital Signs 1 2 3 Most recent to oldest [Reference Range]: 160.02 cm (04/29/16 11:56 AM) Height 97.8 DegF (04/29/16 4:39 PM) 97.7 DegF (04/29/16 2:48 PM) 97.7 DegF (04/29/16 11:56 AM) Temperature Oral [96.4-99.1 DegF] 110/68 mmHg (04/29/16 4:39 PM) 112/74 mmHg (04/29/16 2:49 PM) 102/66 mmHg (04/29/16 1:30 PM) Blood Pressure [90-140/60-90 mmHg] 18 BRMIN (04/29/16 4:39 PM) 18 BRMIN (04/29/16 2:49 PM) 20 BRMIN (04/29/16 1:30 PM) Respiratory Rate [14-20 BRMIN] 66 bpm (04/29/16 4:39 PM) 70 bpm (04/29/16 2:49 PM) 74 bpm (04/29/16 1:30 PM) Peripheral Pulse Rate [60-100 bpm] 79.545 kg (04/29/16 11:56 AM) Weight 31.06 m2 (04/29/16 11:56 AM) Body Mass Index Problem List Condition Effective Dates Status Health Status Informant Anxiety(Confirmed) Active Chest Active pain(Confirmed) Chronic Active depression(Confirmed ) Depression(Confirmed Active ) Heart Active murmur(Confirmed) Heart septal Active defects(Confirmed) High blood Active pressure(Confirmed) High Active cholesterol(Confirme d) HLD - Active Hyperlipidemia(Confi rmed) HTN Resolved (hypertension)(Confi rmed) Obesity(Confirmed) Active Smoker(Confirmed) Active VSD (ventricular Resolved septal defect)(Confirmed) VSD (ventricular Active septal defect)(Confirmed) Allergies, Adverse Reactions, Alerts Substance Reaction Severity Status NKDA Active Medications aspirin 324 mg, 4 tab, Route: PO, Drug form: CHEWTAB, ONCE, Dosing Weight 79.545, kg, Pr iority: STAT, Start date: 04/29/16 12:29:00 RADIOGRAPHER TECHNOLOGIST, Stop date: 04/29/16 12:29:00 CS T Notes: Take with food. Start Date: 04/29/16 Stop Date: 04/29/16 Status: Completed hydromorphone 1 mg, 1 mL, Route: IVP, Drug form: INJ, ONCE, Dosing Weight 79.545, kg, Priority : STAT, Start date: 04/29/16 12:29:00 RADIOGRAPHER TECHNOLOGIST, Stop date: 04/29/16 12:29:00 RADIOGRAPHER TECHNOLOGIST Start Date: 04/29/16 Stop Date: 04/29/16 Status: Completed morphine Sulfate 4 mg, 1 mL, Route: IVP, Drug form: SOLN, ONCE, Dosing Weight 79.545, kg, Priorit y: STAT, Start date: 04/29/16 12:29:00 RADIOGRAPHER TECHNOLOGIST, Stop date: 04/29/16 12:29:00 RADIOGRAPHER TECHNOLOGIST Notes: (Same as:MORPhine Sulfate) Start Date: 04/29/16 Stop Date: 04/29/16 Status: Completed Saline Flush 0.9% 10 mL, Route: IVP, Drug Form: INJ, Dosing Weight 79.545, kg, PRN, PRN Line Flush , Start date: 04/29/16 12:29:00 RADIOGRAPHER TECHNOLOGIST, Duration: 30 day, Stop date: 05/29/16 12:28 :00 RADIOGRAPHER TECHNOLOGIST Notes: (Same as: BD Posiflush) Start Date: 04/29/16 Stop Date: 04/29/16 Status: Discontinued Valium 2 mg oral tablet 2 mg=1 tab, PO, QID, PRN Anxiety, X 7 day, # 5 tab, 0 Refill(s) Start Date: 04/29/16 Stop Date: 05/06/16 Status: Ordered Results ELECTROLYTES Most recent to 1 2 oldest [Reference Range]: Sodium Lvl [135-145 137 mEq/L mEq/L] (04/29/16 12:39 PM) Potassium Lvl 4.2 mEq/L [3.5-5.1 mEq/L] (04/29/16 12:39 PM) Chloride Lvl [95-109 101 mEq/L mEq/L] (04/29/16 12:39 PM) CO2 [24-32 mEq/L] 25 mEq/L (04/29/16 12:39 PM) AGAP [10.0-20.0 15.2 mEq/L mEq/L] (04/29/16 12:39 PM) CHEM PANEL Most recent to 1 2 oldest [Reference Range]: Creatinine Lvl 0.92 mg/dL [0.50-1.40 mg/dL] (04/29/16 12:39 PM) eGFR 70 mL/min/1.73m2 1 *NA* (04/29/16 12:39 PM) BUN [7-22 mg/dL] 17 mg/dL (04/29/16 12:39 PM) B/C Ratio [6-25] 18 (04/29/16 12:39 PM) Glucose Lvl [70-99 97 mg/dL mg/dL] (04/29/16 12:39 PM) Total Protein 8.1 g/dL [6.4-8.4 g/dL] (04/29/16 12:39 PM) Albumin Lvl [3.5-5.0 4.0 g/dL g/dL] (04/29/16 12:39 PM) Globulin [2.7-4.2 4.1 g/dL g/dL] (04/29/16 12:39 PM) A/G Ratio [0.7-1.6] 1.0 (04/29/16 12:39 PM) Calcium Lvl 9.1 mg/dL [8.5-10.5 mg/dL] (04/29/16 12:39 PM) Magnesium Lvl 2.2 mg/dL [1.8-2.4 mg/dL] (04/29/16 12:39 PM) ALT [0-65 unit/L] 38 unit/L (04/29/16 12:39 PM) AST [0-37 unit/L] 18 unit/L (04/29/16 12:39 PM) Alk Phos [39-136 115 unit/L unit/L] (04/29/16 12:39 PM) Bili Total [0.2-1.3 0.3 mg/dL mg/dL] (04/29/16 12:39 PM) Lipase Lvl [73-393 92 unit/L unit/L] (04/29/16 12:39 PM) 1Result Comment: The eGFR is calculated using [...] be mul tiplied by the estimated BMI. CARDIAC ENZYMES Most recent to 1 2 oldest [Reference Range]: Total CK [12-191 53 unit/L unit/L] (04/29/16 12:39 PM) CK MB [0.5-3.6 <0.5 ng/mL ng/mL] (04/29/16 12:39 PM) CK MB Index <0.9 [0.0-2.5] (04/29/16 12:39 PM) Troponin-I <0.02 ng/mL <0.02 ng/mL [0.00-0.40 ng/mL] (04/29/16 2:19 PM) (04/29/16 12:39 PM) HEMATOLOGY Most recent to 1 2 oldest [Reference Range]: WBC [3.7-10.4 K/CMM] 7.2 K/CMM (04/29/16 12:39 PM) RBC [4.20-5.40 5.18 M/CMM M/CMM] (04/29/16 12:39 PM) Hgb [12.0-16.0 g/dL] 15.3 g/dL (04/29/16 12:39 PM) Hct [36.0-48.0 %] 44.5 % (04/29/16 12:39 PM) MCV [80.0-98.0 fL] 85.8 fL (04/29/16 12:39 PM) MCH [27.0-31.0 pg] 29.4 pg (04/29/16 12:39 PM) MCHC [32.0-36.0 34.3 g/dL g/dL] (04/29/16 12:39 PM) RDW [11.5-14.5 %] 13.3 % (04/29/16 12:39 PM) Platelet [133-450 313 K/CMM K/CMM] (04/29/16 12:39 PM) MPV [7.4-10.4 fL] 8.1 fL (04/29/16 12:39 PM) Segs [45.0-75.0 %] 61.9 % (04/29/16 12:39 PM) Lymphocytes 28.4 % [20.0-40.0 %] (04/29/16 12:39 PM) Monocytes [2.0-12.0 7.5 % %] (04/29/16 12:39 PM) Eosinophils [0.0-4.0 1.1 % %] (04/29/16 12:39 PM) Basophils [0.0-1.0 1.1 % %] *HI* (04/29/16 12:39 PM) Segs-Bands # 4.5 K/CMM [1.5-8.1 K/CMM] (04/29/16 12:39 PM) Lymphocytes # 2.0 K/CMM [1.0-5.5 K/CMM] (04/29/16 12:39 PM) Monocytes # [0.0-0.8 0.5 K/CMM K/CMM] (04/29/16 12:39 PM) Eosinophils # 0.1 K/CMM [0.0-0.5 K/CMM] (04/29/16 12:39 PM) Basophils # [0.0-0.2 0.1 K/CMM K/CMM] (04/29/16 12:39 PM) PT [12.0-14.7 13.2 seconds seconds] (04/29/16 12:39 PM) INR [0.85-1.17] 0.98 (04/29/16 12:39 PM) PTT [22.9-35.8 27.3 seconds seconds] (04/29/16 12:39 PM) Immunizations No data available for this section Procedures Procedure Date Related Diagnosis Body Site Abdominal hysterectomy Appendectomy Appendectomy Bilateral inguinal hernia repair Catheterization of left heart section section Colonoscopy Right heart catheterization Ultrasound scan of lower abdomen Social History Social History Type Response Smoking Status Current every day smoker; Exposure to Tobacco Smoke None; Cigarette Smoking Last 365 Days Yes; Reg Smoking Cessation Counseling No Assessment and Plan No data available for this section
--- OUTSIDE RECORDS SUMMARY | 2018-02-04 11:30 | XMS REPORT | Summary of Care ---
Author Author [facility] Organization [facility] Address Unknown Phone Unavailable Encounter PRASANNA Roe(CALE) [id number] Date(s): 09/23/17 - 09/23/17 [facility] [address] [place] [address]- Attending Physician: Dimitri Arce MD Admitting Physician: Dimitri Arce MD Vital Signs No data available for this section Problem List Condition Effective Dates Status Health Status Informant Anxiety(Confirmed) Active Chest Active pain(Confirmed) Chronic Active depression(Confirmed ) Heart Active murmur(Confirmed) Heart septal Active defects(Confirmed) High blood Active pressure(Confirmed) High Active cholesterol(Confirme d) HLD - Active Hyperlipidemia(Confi rmed) HTN Resolved (hypertension)(Confi rmed) Obesity(Confirmed) Active Smoker(Confirmed) Active VSD (ventricular Resolved septal defect)(Confirmed) VSD (ventricular Active septal defect)(Confirmed) Allergies, Adverse Reactions, Alerts Substance Reaction Severity Status NKDA Active Medications Ambien 5 mg, Route: PO, Drug form: TAB, Bedtime, Dosing Weight 80.909, kg, Start date: 09/24/17 21:00:00 CDT, Duration: 30 day, Stop date: 10/23/17 21:00:00 CDT Start Date: 09/24/17 Stop Date: 09/24/17 Status: Canceled azithromycin 500 mg oral tablet 500 mg, Route: PO, Drug form: TAB, Daily, Dosing Weight 80.909, kg, Start date: 09/25/17 9:00:00 CDT, Duration: 5 day, Stop date: 09/29/17 9:00:00 CDT, ABX Caroline cation: Pneumonia Start Date: 09/25/17 Stop Date: 09/24/17 Status: Canceled Dexilant 60 mg, Route: PO, Drug form: DRC, Daily, Dosing Weight 80.909, kg, Start date: 0 09/25/17 9:00:00 CDT, Duration: 30 day, Stop date: 10/24/17 9:00:00 CDT Start Date: 09/25/17 Stop Date: 09/24/17 Status: Canceled esomeprazole 40 mg, Route: PO, Drug form: ECCAP, Daily, Dosing Weight 80.909, kg, Start date: 09/25/17 9:00:00 CDT, Duration: 30 day, Stop date: 10/24/17 9:00:00 CDT Start Date: 09/25/17 Stop Date: 09/24/17 Status: Canceled esomeprazole 40 mg, Route: PO, Drug form: ECCAP, Daily, Dosing Weight 80.909, kg, Priority: S TAT, Start date: 09/24/17 12:57:00 CDT, Duration: 30 day, Stop date: 10/24/17 9: 00:00 CDT Start Date: 09/24/17 Stop Date: 09/24/17 Status: Discontinued levothyroxine 25 microgram, Route: PO, Drug form: TAB, Daily, Dosing Weight 80.909, kg, Start date: 09/25/17 9:00:00 CDT, Duration: 30 day, Stop date: 10/24/17 9:00:00 CDT Start Date: 09/25/17 Stop Date: 09/24/17 Status: Canceled morphine Sulfate 2 mg, 1 mL, Route: IV, Drug form: SOLN, Q4H, Dosing Weight 80.909, kg, PRN Pain Score 7-10, Start date: 09/24/17 12:57:00 CDT, Duration: 30 day, Stop date: 10/04 05/23 12:56:00 CDT Start Date: 09/24/17 Stop Date: 09/24/17 Status: Discontinued [place] 7.5/325 oral tablet 1 tab, Route: PO, Drug Form: TAB, Dosing Weight 80.909, kg, Q4H, PRN Angina, Sta rt date: 09/24/17 12:50:00 CDT, Duration: 30 day, Stop date: 10/24/17 12:49:00 C DT Start Date: 09/24/17 Stop Date: 09/24/17 Status: Discontinued Ranexa 500 mg oral tablet, extended release 500 mg, 1 tab, Route: PO, BID, Dosing Weight 80.909, kg, Priority: STAT, Start d ate: 09/24/17 12:53:00 CDT, Duration: 30 day, Stop date: 10/24/17 9:00:00 CDT Start Date: 09/24/17 Stop Date: 09/24/17 Status: Discontinued ranitidine 150 mg oral tablet 150 mg, 1 tab, Route: PO, Drug form: TAB, BID, Dosing Weight 80.909, kg, Start d ate: 09/24/17 17:00:00 CDT, Duration: 30 day, Stop date: 10/24/17 9:00:00 CDT Start Date: 09/24/17 Stop Date: 09/24/17 Status: Canceled sertraline 100 mg, Route: PO, Drug form: TAB, Daily, Dosing Weight 80.909, kg, Start date: 09/25/17 9:00:00 CDT, Duration: 30 day, Stop date: 10/24/17 9:00:00 CDT Start Date: 09/25/17 Stop Date: 09/24/17 Status: Canceled Results No data available for this section Immunizations No data available for this section Procedures Procedure Date Related Diagnosis Body Site Status Abdominal hysterectomy Completed Appendectomy Completed Appendectomy Completed Bilateral inguinal hernia repair Completed Catheterization of left heart Completed section Completed section Completed Colonoscopy Completed Right heart catheterization Completed Ultrasound scan of lower abdomen Completed Social History Social History Type Response Substance Abuse Use: None. Alcohol Current, Frequency: 1-2 times per month. Smoking Status Current every day smoker; Type: Cigarettes; Previous treatment: None; Ready to change: No; Concerns about tobacco use in household: No; Exposure to Tobacco Smoke None; Cigarette Smoking Last 365 Days Yes; Reg Smoking Cessation Counseling No; Tobacco use per day: 20; Number of years: 30; entered on: 09/24/17 Assessment and Plan No data available for this section
--- OUTSIDE RECORDS SUMMARY | 2018-02-04 11:30 | XMS REPORT | Summary of Care ---
Author Author [facility] Organization [facility] Address Unknown Phone Unavailable Encounter [facility](FIN) [id number] Date(s): 07/17/15 - 07/17/15 [facility] [address] [place] [address] Discharge Disposition: Home Attending Physician: Nikki Perez MD Referring Physician: Nikki Perez MD Vital Signs No data available for [...] Substance Reaction Severity Status NKDA Active Medications No data available for this section Results No data available for this section [...]
--- OUTSIDE RECORDS SUMMARY | 2018-02-04 11:30 | XMS REPORT | Summary of Care ---
Author Author [facility] [place] Organization [facility] Address Unknown Phone Unavailable Encounter HQ Skyla_josé miguel(FIN) [id number] Date(s): 01/28/15 - 01/28/15 [facility] [place] [address] [id number] [phone] Discharge Disposition: Home Attending Physician: Bhargavi Godfrey MD Referring Physician: Bhargavi Godfrey MD Vital Signs No data available for [...]
--- OUTSIDE RECORDS SUMMARY | 2018-02-04 11:30 | XMS REPORT | Summary of Care ---
Author Organization Unknown Address Unknown Phone Unavailable Encounter PRASANNA Roe(CALE) [id number] Date(s): 08/01/13 - 08/01/13 [facility] [address] [place], [place] [address] [facility] Discharge Diagnosis: Chest wall pain Discharge Diagnosis: Anxiety Discharge Disposition: Home Physician Attending: Eugenio Gutierrez DO Reason for Visit CHEST PAIN/NAUSEA Vital Signs Most recent to 1 2 oldest [Reference Range]: Height 160.02 cm (08/01/13 2:35 PM) Temperature Oral 98.2 DegF 98.5 DegF [96.4-99.1 DegF] (08/01/13 5:30 PM) (08/01/13 2:35 PM) Systolic Blood 117 mmHg 125 mmHg Pressure [90-140 (08/01/13 5:30 PM) (08/01/13 2:35 PM) mmHg] Diastolic Blood 84 mmHg 74 mmHg Pressure [60-90 (08/01/13 5:30 PM) (08/01/13 2:35 PM) mmHg] Respiratory Rate 18 BRMIN 16 BRMIN [14-20 BRMIN] (08/01/13 5:30 PM) (08/01/13 2:35 PM) Peripheral Pulse 52 bpm 73 bpm Rate [60-100 bpm] *LOW* (08/01/13 2:35 PM) (08/01/13 5:30 PM) Weight 68.182 kg (08/01/13 2:35 PM) Body Mass Index 26.63 m2 (08/01/13 2:35 PM) Problem List Condition Effective Dates Status Health Status Informant Chest Active pain(Confirmed) Chronic Active depression(Confirmed ) Heart septal Active defects(Confirmed) HLD - Active Hyperlipidemia(Confi rmed) Smoker(Confirmed) Active VSD (ventricular Resolved septal defect)(Confirmed) Allergies, Adverse Reactions, Alerts Substance Reaction Severity Status NKDA Active Medications Indocin SR 75 mg oral capsule, extended release 75 mg=1 cap, PO, Daily, for pain, # 10 cap, 0 Refill(s) Start Date: 08/01/13 Stop Date: 08/01/13 Status: Discontinued ketorolac 60 mg, Route: IM, Drug form: INJ, ONCE, Dosing Weight 68.182, kg, Priority: STAT , Start date: 08/01/13 16:18:00, Stop date: 08/01/13 16:18:00 Start Date: 08/01/13 Stop Date: 08/01/13 Status: Completed morphine Sulfate 4 mg, Route: IVP, ONCE, Dosing Weight 68.182, kg, Priority: STAT, Start date: 16:24:00, Stop date: 08/01/13 16:24:00 Start Date: 08/01/13 Stop Date: 08/01/13 Status: Completed Zofran 4 mg, Route: IVP, ONCE, Dosing Weight 68.182, kg, Priority: STAT, Start date: 16:24:00, Stop date: 08/01/13 16:24:00 Start Date: 08/01/13 Stop Date: 08/01/13 Status: Completed Results ELECTROLYTES Most recent to 1 oldest [Reference Range]: Sodium Lvl [135-145 140 mEq/L mEq/L] (08/01/13 2:47 PM) Potassium Lvl 3.8 mEq/L [3.5-5.1 mEq/L] (08/01/13 2:47 PM) Chloride Lvl [95-109 106 mEq/L mEq/L] (08/01/13 2:47 PM) CO2 [24-32 mEq/L] 28 mEq/L (08/01/13 2:47 PM) AGAP [10.0-20.0 9.8 mEq/L mEq/L] *LOW* (08/01/13 2:47 PM) CHEM PANEL Most recent to 1 oldest [Reference Range]: Creatinine Lvl 0.9 mg/dL [0.5-1.4 mg/dL] (08/01/13 2:47 PM) eGFR 73 mL/min/1.73m2 1 *NA* (08/01/13 2:47 PM) BUN [7-22 mg/dL] 17 mg/dL (08/01/13 2:47 PM) B/C Ratio [6-25] 19 (08/01/13 2:47 PM) Glucose Lvl [70-99 143 mg/dL 2 mg/dL] *HI* (08/01/13 2:47 PM) Total Protein 7.6 g/dL [6.4-8.4 g/dL] (08/01/13 2:47 PM) Albumin Lvl [3.5-5.0 3.8 g/dL g/dL] (08/01/13 2:47 PM) Globulin [2.0-4.0 3.8 g/dL g/dL] (08/01/13 2:47 PM) A/G Ratio [0.7-1.6] 1.0 (08/01/13 2:47 PM) Calcium Lvl 9.4 mg/dL [8.5-10.5 mg/dL] (08/01/13 2:47 PM) Phosphorus [2.5-4.5 3.3 mg/dL mg/dL] (08/01/13 2:47 PM) Magnesium Lvl 2.1 mg/dL [1.8-2.4 mg/dL] (08/01/13 2:47 PM) ALT [0-65 unit/L] 30 unit/L (08/01/13 2:47 PM) AST [0-37 unit/L] 18 unit/L (08/01/13 2:47 PM) Alk Phos [39-136 113 unit/L unit/L] (08/01/13 2:47 PM) Bili Total [0.2-1.3 0.3 mg/dL mg/dL] (08/01/13 2:47 PM) 1Result Comment: The eGFR is calculated [...] be mul tiplied by the estimated BMI. 2Interpretive Data: Adult reference range values reflect the clinical guidelines of the [place] [employer]. CARDIAC ENZYMES Most recent to 1 oldest [Reference Range]: Total CK [12-191 68 unit/L unit/L] (08/01/13 2:47 PM) CK MB [0.5-3.6 <0.5 ng/mL ng/mL] (08/01/13 2:47 PM) CK MB Index <0.7 [0.0-2.5] (08/01/13 2:47 PM) Troponin-I <0.02 ng/mL [0.00-0.40 ng/mL] (08/01/13 2:47 PM) BNP [<=100 pg/mL] 19 pg/mL 3 (08/01/13 2:47 PM) 3Interpretive Data: Elevated results are in line with increasing severity of congestive heart failure. Minor elevations between 100 and 300 may be seen with Myocardial Ischemia, Sodium retaining drugs, and compensated/treated heart failure. HEMATOLOGY Most recent to 1 oldest [Reference Range]: WBC [3.7-10.4 K/CMM] 7.1 K/CMM (08/01/13 2:47 PM) RBC [4.20-5.40 4.75 M/CMM M/CMM] (08/01/13 2:47 PM) Hgb [12.0-16.0 g/dL] 14.2 g/dL (08/01/13 2:47 PM) Hct [36.0-48.0 %] 40.9 % (08/01/13 2:47 PM) MCV [81.0-99.0 fL] 86.1 fL (08/01/13 2:47 PM) MCH [27.0-31.0 pg] 29.8 pg (08/01/13 2:47 PM) MCHC [32.0-36.0 34.6 g/dL g/dL] (08/01/13 2:47 PM) RDW [11.5-14.5 %] 12.8 % (08/01/13 2:47 PM) Platelet [133-450 273 K/CMM K/CMM] (08/01/13 2:47 PM) MPV [7.4-10.4 fL] 7.9 fL (08/01/13 2:47 PM) Segs [45.0-75.0 %] 65.3 % (08/01/13 2:47 PM) Lymphocytes 25.6 % [20.0-40.0 %] (08/01/13 2:47 PM) Monocytes [2.0-12.0 6.4 % %] (08/01/13 2:47 PM) Eosinophils [0.0-4.0 2.0 % %] (08/01/13 2:47 PM) Basophils [0.0-1.0 0.7 % %] (08/01/13 2:47 PM) Segs-Bands # 4.7 K/CMM [1.5-8.1 K/CMM] (08/01/13 2:47 PM) Lymphocytes # 1.8 K/CMM [1.0-5.5 K/CMM] (08/01/13 2:47 PM) Monocytes # [0.0-0.8 0.5 K/CMM K/CMM] (08/01/13 2:47 PM) Eosinophils # 0.1 K/CMM [0.0-0.5 K/CMM] (08/01/13 2:47 PM) Basophils # [0.0-0.2 0.1 K/CMM K/CMM] (08/01/13 2:47 PM) PT [12.0-14.7 12.4 seconds seconds] (08/01/13 2:47 PM) INR [0.85-1.17] 0.93 4 (08/01/13 2:47 PM) PTT [22.9-35.8 24.6 seconds 5 seconds] (08/01/13 2:47 PM) 4Interpretive Data: RECOMMENDED RANGES FOR PROTIME INR: 2.0-3.0 for most medical and surgical thromboembolic states. 2.5-3.5 for artificial heart valves and recurrent embolism. INR SHOULD BE USED ONLY FOR PATIENTS ON STABLE ANTICOAGULANT THERAPY. 5Interpretive Data: Heparin Therapeutic Range: 57 - 92 Seconds Medications Administered During Your Visit No data available for this section Immunizations No data available for this section Social History Social History Type Response
--- OUTSIDE RECORDS SUMMARY | 2018-02-04 11:30 | XMS REPORT | Summary of Care ---
Author Organization Unknown Address Unknown Phone Unavailable Encounter PRASANNA Roe(CALE) [id number] Date(s): 12/25/13 - 12/25/13 [facility] [address] [place] [address] Discharge Diagnosis: Chest pain Discharge Disposition: Home Physician Attending: Brock Ocampo MD Reason for Visit CHEST PAIN Vital Signs 1 2 3 Most recent to oldest [Reference Range]: 160.02 cm (12/25/13 3:05 PM) Height 98.2 DegF (12/25/13 10:29 PM) 98.3 DegF (12/25/13 9:38 PM) 98.6 DegF (12/25/13 5:36 PM) Temperature Oral [96.4-99.1 DegF] 133 mmHg (12/25/13 10:29 PM) 119 mmHg (12/25/13 9:38 PM) 157 mmHg *HI* (12/25/13 8:26 PM) Systolic Blood Pressure [90-140 mmHg] 74 mmHg (12/25/13 10:29 PM) 64 mmHg (12/25/13 9:38 PM) 88 mmHg (12/25/13 8:26 PM) Diastolic Blood Pressure [60-90 mmHg] 17 BRMIN (12/25/13 10:29 PM) 11 BRMIN *LOW* (12/25/13 9:38 PM) 17 BRMIN (12/25/13 8:26 PM) Respiratory Rate [14-20 BRMIN] 52 bpm *LOW* (12/25/13 10:29 PM) 52 bpm *LOW* (12/25/13 9:38 PM) 55 bpm *LOW* (12/25/13 8:26 PM) Peripheral Pulse Rate [60-100 bpm] 70.455 kg (12/25/13 3:05 PM) Weight 27.51 m2 (12/25/13 3:05 PM) Body Mass Index Problem List Condition Effective Dates Status Health Status Informant Chest Active pain(Confirmed) Chronic Active depression(Confirmed ) Heart septal Active defects(Confirmed) HLD - Active Hyperlipidemia(Confi rmed) Smoker(Confirmed) Active VSD (ventricular Resolved septal defect)(Confirmed) Allergies, Adverse Reactions, Alerts Substance Reaction Severity Status NKDA Active Medications morphine Sulfate 4 mg, Route: IVP, Drug form: INJ, ONCE, Dosing Weight 70.455, kg, Priority: STAT , Start date: 12/25/13 20:27:00, Stop date: 12/25/13 20:27:00 Start Date: 12/25/13 Stop Date: 12/25/13 Status: Completed Valium 5 mg, Route: IVP, Drug form: INJ, ONCE, Dosing Weight 70.455, kg, Priority: STAT , Start date: 12/25/13 20:46:00, Stop date: 12/25/13 20:46:00 Start Date: 12/25/13 Stop Date: 12/25/13 Status: Completed Valium 2 mg oral tablet 4 mg=2 tab, PO, QID, Chest Pain, # 12 tab, 0 Refill(s) Start Date: 12/25/13 Status: Ordered Zofran 4 mg, Route: IVP, Drug form: INJ, ONCE, Dosing Weight 70.455, kg, Priority: STAT , Start date: 12/25/13 20:27:00, Stop date: 12/25/13 20:27:00 Start Date: 12/25/13 Stop Date: 12/25/13 Status: Completed Results ELECTROLYTES Most recent to 1 oldest [Reference Range]: Sodium Lvl [135-145 140 mEq/L mEq/L] (12/25/13 5:28 PM) Potassium Lvl 4.1 mEq/L [3.5-5.1 mEq/L] (12/25/13 5:28 PM) Chloride Lvl [95-109 106 mEq/L mEq/L] (12/25/13 5:28 PM) CO2 [24-32 mEq/L] 27 mEq/L (12/25/13 5:28 PM) AGAP [10.0-20.0 11.1 mEq/L mEq/L] (12/25/13 5:28 PM) CHEM PANEL Most recent to 1 oldest [Reference Range]: Creatinine Lvl 0.9 mg/dL [0.5-1.4 mg/dL] (12/25/13 5:28 PM) eGFR 73 mL/min/1.73m2 1 *NA* (12/25/13 5:28 PM) BUN [7-22 mg/dL] 23 mg/dL *HI* (12/25/13 5:28 PM) B/C Ratio [6-25] 26 *HI* (12/25/13 5:28 PM) Glucose Lvl [70-99 77 mg/dL 2 mg/dL] (12/25/13 5:28 PM) Total Protein 7.1 g/dL [6.4-8.4 g/dL] (12/25/13 5:28 PM) Albumin Lvl [3.5-5.0 3.7 g/dL g/dL] (12/25/13 5:28 PM) Globulin [2.0-4.0 3.4 g/dL g/dL] (12/25/13 5:28 PM) A/G Ratio [0.7-1.6] 1.1 (12/25/13 5:28 PM) Calcium Lvl 8.3 mg/dL [8.5-10.5 mg/dL] *LOW* (12/25/13 5:28 PM) ALT [0-65 unit/L] 37 unit/L (12/25/13 5:28 PM) AST [0-37 unit/L] 22 unit/L (12/25/13 5:28 PM) Alk Phos [39-136 114 unit/L unit/L] (12/25/13 5:28 PM) Bili Total [0.2-1.3 0.4 mg/dL mg/dL] (12/25/13 5:28 PM) 1Result Comment: The eGFR is calculated [...] values reflect the clinical guidelines of the [place] [employer]. CARDIAC ENZYMES Most recent to 1 oldest [Reference Range]: Total CK [12-191 82 unit/L unit/L] (12/25/13 5:28 PM) CK MB [0.5-3.6 0.7 ng/mL ng/mL] (12/25/13 5:28 PM) CK MB Index 0.9 [0.0-2.5] (12/25/13 5:28 PM) Troponin-I <0.02 ng/mL [0.00-0.40 ng/mL] (12/25/13 5:28 PM) URINE AND STOOL Most recent to 1 oldest [Reference Range]: UA Turbidity [Clear] Slight *ABN* (12/25/13 5:28 PM) UA Color Ltyellow *NA* (12/25/13 5:28 PM) UA pH [5.0-8.0] 7.0 (12/25/13 5:28 PM) UA Spec Grav 1.020 [<=1.030] (12/25/13 5:28 PM) UA Glucose [Negative Negative mg/dL mg/dL] *NA* (12/25/13 5:28 PM) UA Blood [Negative] Negative (12/25/13 5:28 PM) UA Ketones [Negative Negative mg/dL mg/dL] *NA* (12/25/13 5:28 PM) UA Protein [Negative Negative mg/dL mg/dL] (12/25/13 5:28 PM) UA Urobilinogen <=1.0 mg/dL [0.1-1.0 mg/dL] *NA* (12/25/13 5:28 PM) UA Bili [Negative] Negative *NA* (12/25/13 5:28 PM) UA Leuk Est Negative [Negative] (12/25/13 5:28 PM) UA Nitrite Negative [Negative] (12/25/13 5:28 PM) UA WBC [0-5 /HPF] 1 /HPF (12/25/13 5:28 PM) UA RBC [0-2 /HPF] 1 /HPF (12/25/13 5:28 PM) UA Bacteria [None Occasional /HPF Seen /HPF] *NA* (12/25/13 5:28 PM) UA Sq Epi [Few /LPF] Occasional /LPF *NA* (12/25/13 5:28 PM) UA Mucus [None Seen Few /LPF /LPF] *NA* (12/25/13 5:28 PM) HEMATOLOGY Most recent to 1 oldest [Reference Range]: WBC [3.7-10.4 K/CMM] 8.4 K/CMM (12/25/13 5:28 PM) RBC [4.20-5.40 4.66 M/CMM M/CMM] (12/25/13 5:28 PM) Hgb [12.0-16.0 g/dL] 14.0 g/dL (12/25/13 5:28 PM) Hct [36.0-48.0 %] 41.6 % (12/25/13 5:28 PM) MCV [80.0-98.0 fL] 89.3 fL (12/25/13 5:28 PM) MCH [27.0-31.0 pg] 30.0 pg (12/25/13 5:28 PM) MCHC [32.0-36.0 33.6 g/dL g/dL] (12/25/13 5:28 PM) RDW [11.5-14.5 %] 13.0 % (12/25/13 5:28 PM) Platelet [133-450 238 K/CMM K/CMM] (12/25/13 5:28 PM) MPV [7.4-10.4 fL] 8.2 fL (12/25/13 5:28 PM) Segs [45.0-75.0 %] 67.3 % (12/25/13 5:28 PM) Lymphocytes 22.5 % [20.0-40.0 %] (12/25/13 5:28 PM) Monocytes [2.0-12.0 7.5 % %] (9/22/14 5:28 PM) Eosinophils [0.0-4.0 1.9 % %] (12/25/13 5:28 PM) Basophils [0.0-1.0 0.8 % %] (12/25/13 5:28 PM) Segs-Bands # 5.7 K/CMM [1.5-8.1 K/CMM] (12/25/13 5:28 PM) Lymphocytes # 1.9 K/CMM [1.0-5.5 K/CMM] (12/25/13 5:28 PM) Monocytes # [0.0-0.8 0.6 K/CMM K/CMM] (12/25/13 5:28 PM) Eosinophils # 0.2 K/CMM [0.0-0.5 K/CMM] (12/25/13 5:28 PM) Basophils # [0.0-0.2 0.1 K/CMM K/CMM] (12/25/13 5:28 PM) Medications Administered During Your Visit No data available for this section Immunizations No data available for this section Social History Social History Type Response
--- OUTSIDE RECORDS SUMMARY | 2018-02-04 11:30 | XMS REPORT | Summary of Care ---
Author Author [facility] Organization [facility] Address Unknown Phone Unavailable Encounter PRASANNA Roe(CALE) [id number] Date(s): 01/25/15 - 01/25/15 [facility] [address] [place] [address]- [phone] Discharge Diagnosis: Nausea Discharge Diagnosis: Chronic abdominal pain Discharge Disposition: Home Attending Physician: Robert Davis MD Vital Signs 1 2 3 Most recent to oldest [Reference Range]: 160.02 cm (01/25/15 4:43 PM) Height 98.2 DegF (01/25/15 6:33 PM) 98.1 DegF (01/25/15 4:43 PM) Temperature Oral [96.4-99.1 DegF] 133/88 mmHg (01/25/15 10:05 PM) 131/83 mmHg (01/25/15 6:33 PM) 147/93 mmHg *HI* (01/25/15 4:43 PM) Blood Pressure [90-140/60-90 mmHg] 18 BRMIN (01/25/15 10:05 PM) 18 BRMIN (01/25/15 6:33 PM) 18 BRMIN (01/25/15 4:43 PM) Respiratory Rate [14-20 BRMIN] 67 bpm (01/25/15 10:05 PM) 51 bpm *LOW* (01/25/15 6:33 PM) 59 bpm *LOW* (01/25/15 4:43 PM) Peripheral Pulse Rate [60-100 bpm] 77.273 kg (01/25/15 4:43 PM) Weight 30.18 m2 (01/25/15 4:43 PM) Body Mass Index Problem List Condition [...] Substance Reaction Severity Status NKDA Active Medications Dilaudid 1 mg, Route: IVP, ONCE, Dosing Weight 77.273, kg, Priority: STAT, Start date: 18:26:00, Stop date: 01/25/15 18:26:00 Start Date: 01/25/15 Stop Date: 01/25/15 Status: Completed hydromorphone 1 mg, Route: IVP, ONCE, Dosing Weight 77.273, kg, Priority: STAT, Start date: 17:23:00, Stop date: 01/25/15 17:23:00 Start Date: 01/25/15 Stop Date: 01/25/15 Status: Completed ondansetron 4 mg, Route: IVP, ONCE, Dosing Weight 77.273, kg, Priority: STAT, Start date: 17:23:00, Stop date: 01/25/15 17:23:00 Start Date: 01/25/15 Stop Date: 01/25/15 Status: Completed pantoprazole 40 mg, Route: IVP, ONCE, Dosing Weight 77.273, kg, For IV push reconstitute with 10 ml 0.9% sodium chloride and push over at least 3 minutes, Priority: STAT, St art date: 01/25/15 17:23:00, Stop date: 01/25/15 17:23:00 Start Date: 01/25/15 Stop Date: 01/25/15 Status: Completed Saline Flush 0.9% 10 mL, Route: IVP, Drug Form: INJ, Dosing Weight 77.273, kg, PRN, PRN Line Flush , Start date: 01/25/15 17:23:00, Duration: 30 day, Stop date: 02/24/15 16:22:00 Notes: (Same as: BD Posiflush) Start Date: 01/25/15 Stop Date: 01/26/15 Status: Discontinued Sodium Chloride 0.9% (Bolus) IV 1,000 mL, Infuse Over: 1 hr, Route: IV, ONCE, Priority: STAT, Dosing Weight 77.2 73 kg, Start date: 01/25/15 17:23:00, Duration: 1 doses or times, Stop date: 17:23:00 Start Date: 01/25/15 Stop Date: 01/25/15 Status: Completed Zofran 4 mg, Route: IVP, Drug form: INJ, ONCE, Dosing Weight 77.273, kg, Priority: STAT , Start date: 01/25/15 20:19:00, Stop date: 01/25/15 20:19:00 Start Date: 01/25/15 Stop Date: 01/25/15 Status: Completed Zofran ODT 4 mg oral tablet, disintegrating 4 mg=1 tab, PO, TID, PRN Nausea and Vomiting, Dissolve tab under tongue, X 5 day , # 15 tab, 0 Refill(s) Start Date: 01/25/15 Stop Date: 01/30/15 Status: Ordered Results ELECTROLYTES Most recent to 1 oldest [Reference Range]: Sodium Lvl [135-145 141 mEq/L mEq/L] (01/25/15 5:41 PM) Potassium Lvl 3.8 mEq/L [3.5-5.1 mEq/L] (01/25/15 5:41 PM) Chloride Lvl [95-109 108 mEq/L mEq/L] (01/25/15 5:41 PM) CO2 [24-32 mEq/L] 23 mEq/L *LOW* (01/25/15 5:41 PM) AGAP [10.0-20.0 13.8 mEq/L mEq/L] (01/25/15 5:41 PM) CHEM PANEL Most recent to 1 oldest [Reference Range]: Creatinine Lvl 1.0 mg/dL [0.5-1.4 mg/dL] (01/25/15 5:41 PM) eGFR 64 mL/min/1.73m2 1 *NA* (01/25/15 5:41 PM) BUN [7-22 mg/dL] 14 mg/dL (01/25/15 5:41 PM) B/C Ratio [6-25] 14 (01/25/15 5:41 PM) Glucose Lvl [70-99 85 mg/dL mg/dL] (01/25/15 5:41 PM) Total Protein 7.4 g/dL [6.4-8.4 g/dL] (01/25/15 5:41 PM) Albumin Lvl [3.5-5.0 3.7 g/dL g/dL] (01/25/15 5:41 PM) Globulin [2.0-4.0 3.7 g/dL g/dL] (01/25/15 5:41 PM) A/G Ratio [0.7-1.6] 1.0 (01/25/15 5:41 PM) Calcium Lvl 8.4 mg/dL [8.5-10.5 mg/dL] *LOW* (01/25/15 5:41 PM) ALT [0-65 unit/L] 31 unit/L (01/25/15 5:41 PM) AST [0-37 unit/L] 16 unit/L (01/25/15 5:41 PM) Alk Phos [39-136 113 unit/L unit/L] (01/25/15 5:41 PM) Bili Total [0.2-1.3 0.3 mg/dL mg/dL] (01/25/15 5:41 PM) Amylase Lvl [25-115 45 unit/L unit/L] (01/25/15 5:41 PM) Lipase Lvl [73-393 64 unit/L unit/L] *LOW* (01/25/15 5:41 PM) 1Result Comment: The eGFR is calculated [...] BMI. CARDIAC ENZYMES Most recent to 1 oldest [Reference Range]: Total CK [12-191 66 unit/L unit/L] (01/25/15 5:41 PM) CK MB [0.5-3.6 <0.5 ng/mL ng/mL] (01/25/15 5:41 PM) CK MB Index <0.8 [0.0-2.5] (01/25/15 5:41 PM) Troponin-I <0.02 ng/mL [0.00-0.40 ng/mL] (01/25/15 5:41 PM) URINE AND STOOL Most recent to 1 oldest [Reference Range]: UA Turbidity [Clear] Marked *ABN* (01/25/15 8:18 PM) UA Color Ltyellow *NA* (01/25/15 8:18 PM) UA pH [5.0-8.0] 5.0 (01/25/15 8:18 PM) UA Spec Grav 1.014 [<=1.030] (01/25/15 8:18 PM) UA Glucose [Negative Negative mg/dL mg/dL] *NA* (01/25/15 8:18 PM) UA Blood [Negative] Negative (01/25/15 8:18 PM) UA Ketones [Negative Negative mg/dL mg/dL] *NA* (01/25/15 8:18 PM) UA Protein [Negative Negative mg/dL mg/dL] (01/25/15 8:18 PM) UA Urobilinogen <=1.0 mg/dL [0.1-1.0 mg/dL] *NA* (01/25/15 8:18 PM) UA Bili [Negative] Negative *NA* (01/25/15 8:18 PM) UA Leuk Est Negative [Negative] (01/25/15 8:18 PM) UA Nitrite Negative [Negative] (01/25/15 8:18 PM) UA WBC [0-5 /HPF] 5 /HPF (01/25/15 8:18 PM) UA RBC [0-2 /HPF] 2 /HPF (01/25/15 8:18 PM) UA Bacteria [None Occasional /HPF Seen /HPF] *NA* (01/25/15 8:18 PM) UA Sq Epi [Few /LPF] Few /LPF *NA* (01/25/15 8:18 PM) UA Mucus [None Seen Few /LPF /LPF] *NA* (01/25/15 8:18 PM) HEMATOLOGY Most recent to 1 oldest [Reference Range]: WBC [3.7-10.4 K/CMM] 8.2 K/CMM (01/25/15 5:41 PM) RBC [4.20-5.40 5.30 M/CMM M/CMM] (01/25/15 5:41 PM) Hgb [12.0-16.0 g/dL] 15.1 g/dL (01/25/15 5:41 PM) Hct [36.0-48.0 %] 46.5 % (01/25/15 5:41 PM) MCV [80.0-98.0 fL] 87.7 fL (01/25/15 5:41 PM) MCH [27.0-31.0 pg] 28.5 pg (01/25/15 5:41 PM) MCHC [32.0-36.0 32.5 g/dL g/dL] (01/25/15 5:41 PM) RDW [11.5-14.5 %] 13.0 % (01/25/15 5:41 PM) Platelet [133-450 236 K/CMM K/CMM] (01/25/15 5:41 PM) MPV [7.4-10.4 fL] 8.6 fL (01/25/15 5:41 PM) Segs [45.0-75.0 %] 61.9 % (01/25/15 5:41 PM) Lymphocytes 27.1 % [20.0-40.0 %] (01/25/15 5:41 PM) Monocytes [2.0-12.0 8.3 % %] (01/25/15 5:41 PM) Eosinophils [0.0-4.0 1.7 % %] (01/25/15 5:41 PM) Basophils [0.0-1.0 1.0 % %] (01/25/15 5:41 PM) Segs-Bands # 5.1 K/CMM [1.5-8.1 K/CMM] (01/25/15 5:41 PM) Lymphocytes # 2.2 K/CMM [1.0-5.5 K/CMM] (01/25/15 5:41 PM) Monocytes # [0.0-0.8 0.7 K/CMM K/CMM] (01/25/15 5:41 PM) Eosinophils # 0.1 K/CMM [0.0-0.5 K/CMM] (01/25/15 5:41 PM) Basophils # [0.0-0.2 0.1 K/CMM K/CMM] (01/25/15 5:41 PM) Immunizations No data available for this [...]
--- OUTSIDE RECORDS SUMMARY | 2018-02-04 11:30 | XMS REPORT | Summary of Care ---
Author Organization Unknown Address Unknown Phone Unavailable Encounter PRASANNA Roe(CALE) [id number] Date(s): 06/08/14 - 06/08/14 [facility] [address] [place] [address]- Discharge Diagnosis: Chest pain Discharge Disposition: Home Physician Attending: Carlos Velasco MD Vital Signs 1 2 3 Most recent to oldest [Reference Range]: 160.02 cm (06/08/14 10:07 AM) Height 98.2 DegF (06/08/14 3:23 PM) 97.9 DegF (06/08/14 10:07 AM) Temperature Oral [96.4-99.1 DegF] 129/74 mmHg (06/08/14 3:23 PM) 134/72 mmHg (06/08/14 1:24 PM) 123/67 mmHg (06/08/14 12:58 PM) Blood Pressure [90-140/60-90 mmHg] 18 BRMIN (06/08/14 3:23 PM) 10 BRMIN *LOW* (06/08/14 12:58 PM) 10 BRMIN *LOW* (06/08/14 11:58 AM) Respiratory Rate [14-20 BRMIN] 100 bpm (06/08/14 10:07 AM) Peripheral Pulse Rate [60-100 bpm] 75 kg (06/08/14 10:07 AM) Weight 29.29 m2 (06/08/14 10:07 AM) Body Mass Index Problem List Condition Effective Dates Status Health Status Informant Chest Active pain(Confirmed) Chronic Active depression(Confirmed ) Heart septal Active defects(Confirmed) HLD - Active Hyperlipidemia(Confi rmed) HTN Resolved (hypertension)(Confi rmed) Smoker(Confirmed) Active VSD (ventricular Resolved septal defect)(Confirmed) Allergies, Adverse Reactions, Alerts Substance Reaction Severity Status NKDA Active Medications aspirin 324 mg, Route: CHEW, Drug form: CHEWTAB, ONCE, Dosing Weight 75, kg, Priority: S TAT, Start date: 06/08/14 10:20:00, Stop date: 06/08/14 10:20:00 Start Date: 06/08/14 Stop Date: 06/08/14 Status: Completed Ativan 1 mg, Route: IVP, Drug form: INJ, ONCE, Dosing Weight 75, kg, Priority: STAT, St art date: 06/08/14 10:31:00, Stop date: 06/08/14 10:31:00 Start Date: 06/08/14 Stop Date: 06/08/14 Status: Completed GI cocktail 30 mL, Route: PO, Dosing Weight 75, kg, ONCE, STAT, Start date: 06/08/14 13:17:0 0, Stop date: 06/08/14 13:17:00 Start Date: 06/08/14 Stop Date: 06/08/14 Status: Completed ibuprofen 400 mg oral tablet 400 mg=1 tab, PO, Q6H, Pain or Fever, Take with food, # 40 tab, 0 Refill(s) Special Instructions: Take with food Start Date: 06/08/14 Stop Date: 06/18/14 Status: Ordered ketOROLAC 30 mg, Route: IVP, Drug form: INJ, ONCE, Dosing Weight 75, kg, Priority: STAT, S tart date: 06/08/14 12:26:00, Stop date: 06/08/14 12:26:00 Start Date: 06/08/14 Stop Date: 06/08/14 Status: Completed morphine Sulfate 4 mg, Route: IVP, Drug form: INJ, ONCE, Dosing Weight 75, kg, Priority: STAT, St art date: 06/08/14 10:20:00, Stop date: 06/08/14 10:20:00 Start Date: 06/08/14 Stop Date: 06/08/14 Status: Completed morphine Sulfate 4 mg, Route: IVP, Drug form: INJ, ONCE, Dosing Weight 75, kg, Priority: STAT, St art date: 06/08/14 10:31:00, Stop date: 06/08/14 10:31:00 Start Date: 06/08/14 Stop Date: 06/08/14 Status: Completed nitroglycerin 0.4 mg, Route: SL, ONCE, Dosing Weight 75, kg, Priority: STAT, Start date: 06/08 10:21:00, Stop date: 06/08/14 10:21:00 Start Date: 06/08/14 Stop Date: 06/08/14 Status: Completed Pepcid 20 mg, Route: IV, ONCE, Dosing Weight 75, kg, Start date: 06/08/14 13:17:00, Sto p date: 06/08/14 13:17:00 Start Date: 06/08/14 Stop Date: 06/08/14 Status: Completed Tylenol with Codeine #3 oral tablet 1 - 2 tab, PO, Q4H, Pain, # 20 tab, 0 Refill(s) Start Date: 06/08/14 Stop Date: 06/10/14 Status: Ordered Tylenol with Codeine #3 oral tablet 1 tab, Route: PO, Drug Form: TAB, Dosing Weight 75, kg, ONCE, STAT, Start date: 06/08/14 14:29:00, Stop date: 06/08/14 14:29:00 Start Date: 06/08/14 Stop Date: 06/08/14 Status: Completed Tylenol with Codeine #3 oral tablet 1 tab, Route: PO, Drug Form: TAB, Dosing Weight 75, kg, ONCE, STAT, Start date: 06/08/14 15:30:00, Stop date: 06/08/14 15:30:00 Start Date: 06/08/14 Stop Date: 06/08/14 Status: Completed Zofran 4 mg, Route: IVP, Drug form: INJ, ONCE, Dosing Weight 75, kg, Priority: STAT, St art date: 06/08/14 10:20:00, Stop date: 06/08/14 10:20:00 Start Date: 06/08/14 Stop Date: 06/08/14 Status: Completed Results ELECTROLYTES Most recent to 1 2 oldest [Reference Range]: Sodium Lvl [135-145 138 mEq/L mEq/L] (06/08/14 10:25 AM) Potassium Lvl 4.4 mEq/L [3.5-5.1 mEq/L] (06/08/14 10:25 AM) Chloride Lvl [95-109 104 mEq/L mEq/L] (06/08/14 10:25 AM) CO2 [24-32 mEq/L] 27 mEq/L (06/08/14 10:25 AM) AGAP [10.0-20.0 11.4 mEq/L mEq/L] (06/08/14 10:25 AM) CHEM PANEL Most recent to 1 2 oldest [Reference Range]: Creatinine Lvl 0.8 mg/dL [0.5-1.4 mg/dL] (06/08/14 10:25 AM) eGFR 84 mL/min/1.73m2 1 *NA* (06/08/14:25 AM) BUN [7-22 mg/dL] 23 mg/dL *HI* (06/08/14:25 AM) B/C Ratio [6-25] 29 *HI* (06/08/14:25 AM) Glucose Lvl [70-99 89 mg/dL 2 mg/dL] (06/08/14: AM) Total Protein 8.1 g/dL [6.4-8.4 g/dL] (06/08/14:25 AM) Albumin Lvl [3.5-5.0 4.2 g/dL g/dL] (06/08/14:25 AM) Globulin [2.0-4.0 3.9 g/dL g/dL] (06/08/14 10:25 AM) A/G Ratio [0.7-1.6] 1.1 (06/08/14:25 AM) Calcium Lvl 9.0 mg/dL [8.5-10.5 mg/dL] (06/08/14 10:25 AM) ALT [0-65 unit/L] 35 unit/L (06/08/14 10:25 AM) AST [0-37 unit/L] 22 unit/L (06/08/14 10:25 AM) Alk Phos [39-136 134 unit/L unit/L] (06/08/14 10:25 AM) Bili Total [0.2-1.3 0.4 mg/dL mg/dL] (06/08/14 10:25 AM) 1Result Comment: The eGFR is calculated using [...] values reflect the clinical guidelines of the [place] [employer]. CARDIAC ENZYMES Most recent to 1 2 oldest [Reference Range]: Total CK [12-191 84 unit/L unit/L] (06/08/14 10:25 AM) CK MB [0.5-3.6 0.6 ng/mL ng/mL] (06/08/14 10:25 AM) CK MB Index 0.7 [0.0-2.5] (06/08/14 10:25 AM) Troponin-I <0.02 ng/mL <0.02 ng/mL [0.00-0.40 ng/mL] (06/08/14 1:57 PM) (06/08/14 10:25 AM) HEMATOLOGY Most recent to 1 2 oldest [Reference Range]: WBC [3.7-10.4 K/CMM] 8.8 K/CMM (06/08/14 10:25 AM) RBC [4.20-5.40 4.95 M/CMM M/CMM] (06/08/14 10:25 AM) Hgb [12.0-16.0 g/dL] 14.9 g/dL (06/08/14 10:25 AM) Hct [36.0-48.0 %] 43.9 % (06/08/14 10:25 AM) MCV [80.0-98.0 fL] 88.8 fL (06/08/14 10:25 AM) MCH [27.0-31.0 pg] 30.1 pg (06/08/14 10:25 AM) MCHC [32.0-36.0 33.9 g/dL g/dL] (06/08/14 10:25 AM) RDW [11.5-14.5 %] 13.2 % (06/08/14 10:25 AM) Platelet [133-450 262 K/CMM K/CMM] (06/08/14 10:25 AM) MPV [7.4-10.4 fL] 8.4 fL (06/08/14 10:25 AM) Segs [45.0-75.0 %] 68.2 % (06/08/14 10:25 AM) Lymphocytes 22.9 % [20.0-40.0 %] (06/08/14 10:25 AM) Monocytes [2.0-12.0 6.2 % %] (06/08/14 10:25 AM) Eosinophils [0.0-4.0 1.5 % %] (06/08/14 10:25 AM) Basophils [0.0-1.0 1.2 % %] *HI* (06/08/14 10:25 AM) Segs-Bands # 6.0 K/CMM [1.5-8.1 K/CMM] (06/08/14 10:25 AM) Lymphocytes # 2.0 K/CMM [1.0-5.5 K/CMM] (06/08/14 10:25 AM) Monocytes # [0.0-0.8 0.5 K/CMM K/CMM] (06/08/14 10:25 AM) Eosinophils # 0.1 K/CMM [0.0-0.5 K/CMM] (06/08/14 10:25 AM) Basophils # [0.0-0.2 0.1 K/CMM K/CMM] (06/08/14 10:25 AM) PT [12.0-14.7 12.9 seconds seconds] (06/08/14 10:25 AM) INR [0.85-1.17] 0.97 3 (06/08/14 10:25 AM) PTT [22.9-35.8 28.1 seconds 4 seconds] (06/08/14 10:25 AM) 3Interpretive Data: RECOMMENDED RANGES FOR PROTIME INR: 2.0-3.0 for most medical and surgical thromboembolic states. 2.5-3.5 for artificial heart valves and recurrent embolism. INR SHOULD BE USED ONLY FOR PATIENTS ON STABLE ANTICOAGULANT THERAPY. 4Interpretive Data: Heparin Therapeutic Range: 57 - 92 Seconds Immunizations No data available for this section Procedures Procedure Date Related Diagnosis Body Site Appendectomy section Social History Social History Type Response Smoking Status Current every day smoker; Exposure to Tobacco Smoke None; Cigarette Smoking Last 365 Days Yes; Reg Smoking Cessation Counseling No Assessment and Plan No data available for this section
--- OUTSIDE RECORDS SUMMARY | 2018-02-04 11:31 | XMS REPORT ---
Author Author Carin Dowling [facility] eClinicalWorks Address Unknown Phone Unavailable Care Team Providers Care Splitter Hand Name Role Phone Carin Dowling CP Unavailable Allergies, Adverse Reactions, Alerts Substance Reaction Event Type N.K.D.A. Info Not Available Non Drug Allergy Encounters Encounter Location Date CLIENT TECHNOLOGIES SPECIALIST- vomiting/ chest discomfort [facility] November 02, 2013 Problems Problem Type Condition ICD-9 Code Onset Dates Condition Status Assessment Depression 311 Active Assessment Hyperlipemia 272.4 Active Assessment VSD (ventricular septal defect) 745.4 Active Problem Tobacco abuse 305.1 Active Problem VSD (ventricular septal defect) 745.4 Active Problem Hyperlipemia 272.4 Active Assessment H. pylori infection 041.86 Active Assessment Vomiting 787.03 Active Problem Depression 311 Active Problem BMI 27.0-27.9,adult V85.23 Active Assessment BMI 27.0-27.9,adult V85.23 Active Assessment Depression screen V79.0 Active Assessment Tobacco abuse counseling V65.42 Active Assessment Tobacco abuse 305.1 Active Medications Medication Code System Code Instructions Start Date End Date Status Dosage [facility] [address]-47 325-5 MG Orally every 6 hrs Active 1 tablet as needed [facility]clamox-Lance [facility] [address]-05 20/500/500 by mouth daily November 02, 2013 Active as directed Zoloft [facility] [address]-07 100 MG Orally Once a day Active 1 tablet Aspirin [facility] [address]-55 81 MG Orally Once a day Active 1 tablet Social History Social History Element Qualifiers Date Reported Depression Screening: . negative 11/02/13 November 02, 2013 Flu Vaccine: . 2012November 02, 2013 Last Colonoscopy: . more than 5 years ago November 02, 2013 children . 2 November 02, 2013 Tobacco Use: . Are you a: current smoker, How many packs per day? less than a half pack, How many years have you smoked? -November 02, 2013 Marital Status: . November 02, 2013 Do you drink alcohol? . Status: Yes, How often? Socially November 02, 2013 Occupation: employed. [employer] November 02, 2013 Vital Signs Date/Time: November 02, 2013 Weight 151 lbs Height 62 in Cardiac Monitoring Heart Rate 59 /min Blood Pressure Diastolic 76 mm Hg Blood Pressure Systolic 120 mm Hg Results Comp. Metabolic Panel (14) Calcium, Serum(-8.7-10.2 mg/dL) 9.7 Carbon Dioxide, Total(-18-29 mmol/L) 25 ALT (SGPT)(-0-32 IU/L) 20 Creatinine, Serum(-0.57-1.00 mg/dL) 0.92 AST (SGOT)(-0-40 IU/L) 16 eGFR If NonAfricn Am(- >59 mL/min/1.73) 71 Alkaline Phosphatase, S(-39-117 IU/L) 101 eGFR If Africn Am(- >59 mL/min/1.73) 82 Bilirubin, Total(-0.0-1.2 mg/dL) 0.3 BUN/Creatinine Ratio(-9-23 ) 18 A/G Ratio(-1.1-2.5 ) 1.6 Sodium, Serum(-134-144 mmol/L) 142 Globulin, Total(-1.5-4.5 g/dL) 2.7 Potassium, Serum(-3.5-5.2 mmol/L) 4.3 Glucose, Serum(-65-99 mg/dL) 81 Chloride, Serum(-97-108 mmol/L) 103 Albumin, Serum(-3.5-5.5 g/dL) 4.4 BUN(-6-24 mg/dL) 17 Protein, Total, Serum(-6.0-8.5 g/dL) 7.1 CBC Platelets(- ) 260 NEUTROPHILS(- ) MID-0.7,GRA-4.1 MCHC(- ) 33.4 MCH(- ) 31.4 MCV(- ) 94.1 WBC(- ) 6.6 RDW(- ) 12.6 RBC(- ) 4.77 Hemoglobin(- ) 15.0 Hematocrit(- ) 44.9 H PYLORI BREATH TEST Summary Purpose eClinicalWorks Submission
--- OUTSIDE RECORDS SUMMARY | 2018-02-04 11:31 | XMS REPORT | Summary of Care ---
Author Author [facility] Organization [facility] Address Unknown Phone Unavailable Encounter PRASANNA Roe(CALE) [id number] Date(s): 09/24/17 - 09/24/17 [facility] [address] [place] [address]- Discharge Disposition: Home or Self Care Attending Physician: Dimitri Arce MD Admitting Physician: Dimitri Arce MD Vital Signs 1 2 3 Most recent to oldest [Reference Range]: 160.02 cm (09/24/17 11:26 AM) 160.02 cm (09/24/17 6:09 AM) Height 98.3 DegF (09/24/17 4:19 PM) 98.4 DegF (09/24/17 11:14 AM) 97.2 DegF (09/24/17 10:17 AM) Temperature Oral [96.4-99.1 DegF] 106/64 mmHg (09/24/17 4:19 PM) 113/75 mmHg (09/24/17 11:14 AM) 118/69 mmHg (09/24/17 10:17 AM) Blood Pressure [90-140/60-90 mmHg] 17 BRMIN (09/24/17 4:19 PM) 20 BRMIN (09/24/17 11:14 AM) 22 BRMIN *HI* (09/24/17 11:04 AM) Respiratory Rate [14-20 BRMIN] 63 bpm (09/24/17 4:19 PM) 59 bpm *LOW* (09/24/17 11:14 AM) 65 bpm (09/24/17 6:09 AM) Peripheral Pulse Rate [60-100 bpm] 80.909 kg (09/24/17 11:26 AM) 80.909 kg (09/24/17 6:09 AM) Weight 31.6 m2 (09/24/17 11:26 AM) 31.6 m2 (09/24/17 6:09 AM) Body Mass Index Problem List Condition [...] Substance Reaction Severity Status NKDA Active Medications acetaminophen 650 mg, 2 tab, Route: PO, Drug form: TAB, Q4H, Dosing Weight 80.909, kg, PRN Kim n 1-3/Temp > 100.4 F, Start date: 09/24/17 10:51:00 CDT, Duration: 30 day, Stop date: 10/24/17 10:50:00 CDT Notes: Do not exceed 4 gm/day. (Same as: Tylenol) Start Date: 09/24/17 Stop Date: 09/24/17 Status: Discontinued amLODIPine 5 mg oral tablet 5 mg=1 tab, PO, Daily, # 30 tab, 1 Refill(s), Pharmacy: [phone] Start Date: 09/24/17 Status: Ordered aspirin 325 mg, Route: PO, Drug form: TAB, ONCE, Dosing Weight 80.909, kg, Priority: STA T, Start date: 09/24/17 6:35:00 CDT, Stop date: 09/24/17 6:35:00 CDT Start Date: 09/24/17 Stop Date: 09/24/17 Status: Completed Dexilant 60 mg oral delayed release capsule 60 mg=1 cap, PO, Daily, # 30 cap, 0 Refill(s) Start Date: 09/24/17 Status: Ordered Dilaudid 0.1 mg, 0.1 mL, Route: IV, Drug form: INJ, Q4H, PRN Pain Score 6-10, Start date: 09/24/17 13:44:00 CDT, Duration: 30 day, Stop date: 10/24/17 13:43:00 CDT Notes: Same as: Dilaudid Start Date: 09/24/17 Stop Date: 09/24/17 Status: Discontinued fentaNYL 50 microgram, Route: IVP, ONCE, Dosing Weight 80.909, kg, Priority: STAT, Start date: 09/24/17 6:32:00 CDT, Stop date: 09/24/17 6:32:00 CDT Start Date: 09/24/17 Stop Date: 09/24/17 Status: Completed fentaNYL 50 microgram, Route: IVP, ONCE, Dosing Weight 80.909, kg, Priority: STAT, Start date: 09/24/17 7:07:00 CDT, Stop date: 09/24/17 7:07:00 CDT Start Date: 09/24/17 Stop Date: 09/24/17 Status: Completed GI cocktail 30 mL, Route: PO, Dosing Weight 80.909, kg, ONCE, STAT, Start date: 09/24/17 7:4 8:00 CDT, Stop date: 09/24/17 7:48:00 CDT Start Date: 09/24/17 Stop Date: 09/24/17 Status: Completed lisinopril 10 mg oral tablet 10 mg=1 tab, PO, Daily, # 30 tab, 0 Refill(s) Start Date: 09/24/17 Stop Date: 09/24/17 Status: Discontinued morphine Sulfate 3 mg, 1.5 mL, Route: PO, Drug form: SOLN, Q4H, Dosing Weight 80.909, kg, PRN Kim n Score 6-10, Start date: 09/24/17 13:14:00 CDT, Duration: 30 day, Stop date: 13:13:00 CDT Notes: (Same as:MORPhine Sulfate) Start Date: 09/24/17 Stop Date: 09/24/17 Status: Discontinued morphine Sulfate 1 mg, 1 mL, Route: IV, Drug form: INJ, Q4H, Dosing Weight 80.909, kg, PRN Pain S core 7-10, Start date: 09/24/17 11:15:00 CDT, Duration: 30 day, Stop date: 10/24 11:14:00 CDT Notes: (Same as: Astramorph-PF) Start Date: 09/24/17 Stop Date: 09/24/17 Status: Discontinued nitroglycerin 0.4 mg, Route: SL, ONCE, Dosing Weight 80.909, kg, Priority: STAT, Start date: 0 09/24/17 7:07:00 CDT, Stop date: 09/24/17 7:07:00 CDT Start Date: 09/24/17 Stop Date: 09/24/17 Status: Completed Ranexa 500 mg oral tablet, extended release 500 mg=1 tab, PO, BID, # 60 tab, 2 Refill(s), Pharmacy: [phone] Start Date: 09/24/17 Status: Ordered ranitidine 150 mg oral tablet 150 mg=1 tab, PO, BID, 0 Refill(s) Start Date: 09/24/17 Status: Ordered ranolazine 500 mg, 1 tab, Route: PO, Drug form: TAB, BID, Dosing Weight 80.909, kg, Priorit y: NOW, Start date: 09/24/17 11:17:00 CDT, Duration: 30 day, Stop date: 10/24/17 9:00:00 CDT Notes: Same as Ranexa"Do Not Crush" Start Date: 09/24/17 Stop Date: 09/24/17 Status: Discontinued Saline Flush 0.9% 10 mL, Route: IVP, Drug Form: INJ, Dosing Weight 80.909, kg, PRN, PRN Line Flush , Start date: 09/24/17 6:27:00 CDT, Duration: 30 day, Stop date: 10/24/17 6:26:0 0 CDT Notes: (Same as: BD Posiflush) Start Date: 09/24/17 Stop Date: 09/24/17 Status: Discontinued Saline Flush 0.9% 10 ml, Route: IVP, Drug Form: INJ, Dosing Weight 80.909, kg, PRN, PRN Line Flush , Start date: 09/24/17 10:51:00 CDT, Duration: 30 day, Stop date: 10/24/17 10:50 :00 CDT Notes: Same as: BD Posiflush Sterile Start Date: 09/24/17 Stop Date: 09/24/17 Status: Discontinued simvastatin 20 mg oral tablet 20 mg=1 tab, PO, Bedtime, # 30 tab, 1 Refill(s) Start Date: 09/24/17 Status: Ordered tramadol 50 mg oral tablet 50 mg=1 tab, PO, Q6H, PRN Pain, # 60 tab, 1 Refill(s) Start Date: 09/24/17 Stop Date: 10/24/17 Status: Ordered Tylenol 650 mg, PO, TID, PRN Pain Score 1-3, 0 Refill(s) Start Date: 09/24/17 Stop Date: 09/24/17 Status: Discontinued Results ELECTROLYTES Most recent to 1 oldest [Reference Range]: Sodium Lvl [135-145 140 mEq/L 138 mEq/L mEq/L] (09/24/17 1:59 PM) (09/24/17 6:29 AM) Potassium Lvl 3.8 mEq/L 4.1 mEq/L [3.5-5.1 mEq/L] (09/24/17 1:59 PM) (09/24/17 6:29 AM) Chloride Lvl [95-109 104 mEq/L 103 mEq/L mEq/L] (09/24/17 1:59 PM) (09/24/17 6:29 AM) CO2 [24-32 mEq/L] 26 mEq/L 28 mEq/L (09/24/17 1:59 PM) (09/24/17 6:29 AM) AGAP [10.0-20.0 13.8 mEq/L 11.1 mEq/L mEq/L] (09/24/17 1:59 PM) (09/24/17 6:29 AM) CHEM PANEL Most recent to 1 2 oldest [Reference Range]: Creatinine Lvl 0.84 mg/dL 0.78 mg/dL [0.50-1.40 mg/dL] (09/24/17 1:59 PM) (09/24/17 6:29 AM) eGFR 77 mL/min/1.73m2 1 84 mL/min/1.73m2 2 *NA* *NA* (09/24/17 1:59 PM) (09/24/17 6:29 AM) BUN [7-22 mg/dL] 19 mg/dL 21 mg/dL (09/24/17 1:59 PM) (09/24/17 6:29 AM) B/C Ratio [6-25] 23 27 (09/24/17 1:59 PM) *HI* (09/24/17 6:29 AM) Glucose Lvl [70-99 138 mg/dL 99 mg/dL mg/dL] *HI* (09/24/17 6:29 AM) (09/24/17 1:59 PM) Total Protein 7.3 g/dL 7.9 g/dL [6.4-8.4 g/dL] (09/24/17 1:59 PM) (09/24/17 6:29 AM) Albumin Lvl [3.5-5.0 3.8 g/dL 4.0 g/dL g/dL] (09/24/17 1:59 PM) (09/24/17 6:29 AM) Globulin [2.7-4.2 3.5 g/dL 3.9 g/dL g/dL] (09/24/17 1:59 PM) (09/24/17 6:29 AM) A/G Ratio [0.7-1.6] 1.1 1.0 (09/24/17 1:59 PM) (09/24/17 6:29 AM) Calcium Lvl 8.8 mg/dL 9.0 mg/dL [8.5-10.5 mg/dL] (09/24/17 1:59 PM) (09/24/17 6:29 AM) Magnesium Lvl 2.2 mg/dL [1.8-2.4 mg/dL] (09/24/17 1:59 PM) ALT [0-65 unit/L] 58 unit/L 64 unit/L (09/24/17 1:59 PM) (09/24/17 6:29 AM) AST [0-37 unit/L] 24 unit/L 27 unit/L (09/24/17 1:59 PM) (09/24/17 6:29 AM) Alk Phos [39-136 112 unit/L 127 unit/L unit/L] (09/24/17 1:59 PM) (09/24/17 6:29 AM) Bili Total [0.2-1.3 0.5 mg/dL 0.7 mg/dL mg/dL] (09/24/17 1:59 PM) (09/24/17 6:29 AM) 1Result Comment: The eGFR is calculated [...] 2 oldest [Reference Range]: Total CK [12-191 33 unit/L 36 unit/L unit/L] (09/24/17 1:59 PM) (09/24/17 6:29 AM) CK MB [0.5-3.6 <1.0 ng/mL ng/mL] (09/24/17 6:29 AM) CK MB Index <2.8 [0.0-2.5] *HI* (09/24/17 6:29 AM) Troponin-I <0.02 ng/mL <0.02 ng/mL [0.00-0.40 ng/mL] (09/24/17 1:59 PM) (09/24/17 6:29 AM) BNP [<=100 pg/mL] 10 pg/mL (09/24/17 6:29 AM) HEMATOLOGY Most recent to 1 2 oldest [Reference Range]: WBC [3.7-10.4 K/CMM] 7.6 K/CMM 7.1 K/CMM (09/24/17 1:59 PM) (09/24/17 6:29 AM) RBC [4.20-5.40 4.66 M/CMM 5.13 M/CMM M/CMM] (09/24/17 1:59 PM) (09/24/17 6:29 AM) Hgb [12.0-16.0 g/dL] 13.9 g/dL 15.1 g/dL (09/24/17 1:59 PM) (09/24/17 6:29 AM) Hct [36.0-48.0 %] 41.0 % 44.6 % (09/24/17 1:59 PM) (09/24/17 6:29 AM) MCV [80.0-98.0 fL] 87.9 fL 87.1 fL (09/24/17 1:59 PM) (09/24/17 6:29 AM) MCH [27.0-31.0 pg] 29.8 pg 29.4 pg (09/24/17 1:59 PM) (09/24/17 6:29 AM) MCHC [32.0-36.0 34.0 g/dL 33.8 g/dL g/dL] (09/24/17 1:59 PM) (09/24/17 6:29 AM) RDW [11.5-14.5 %] 13.6 % 14.1 % (09/24/17 1:59 PM) (09/24/17 6:29 AM) MPV [7.4-10.4 fL] 7.7 fL 7.8 fL (09/24/17 1:59 PM) (09/24/17 6:29 AM) Platelet [133-450 255 K/CMM 307 K/CMM K/CMM] (09/24/17 1:59 PM) (09/24/17 6:29 AM) Segs [45.0-75.0 %] 64.0 % 54.1 % (09/24/17 1:59 PM) (09/24/17 6:29 AM) Lymphocytes 27.0 % 33.2 % [20.0-40.0 %] (09/24/17 1:59 PM) (09/24/17 6:29 AM) Monocytes [2.0-12.0 6.2 % 9.2 % %] (09/24/17 1:59 PM) (09/24/17 6:29 AM) Eosinophils [0.0-4.0 1.5 % 2.4 % %] (09/24/17 1:59 PM) (09/24/17 6:29 AM) Basophils [0.0-1.0 1.3 % 1.1 % %] *HI* *HI* (09/24/17 1:59 PM) (09/24/17 6:29 AM) Segs-Bands # 4.9 K/CMM 3.9 K/CMM [1.5-8.1 K/CMM] (09/24/17 1:59 PM) (09/24/17 6:29 AM) Lymphocytes # 2.1 K/CMM 2.4 K/CMM [1.0-5.5 K/CMM] (09/24/17 1:59 PM) (09/24/17 6:29 AM) Monocytes # [0.0-0.8 0.5 K/CMM 0.7 K/CMM K/CMM] (09/24/17 1:59 PM) (09/24/17 6:29 AM) Eosinophils # 0.1 K/CMM 0.2 K/CMM [0.0-0.5 K/CMM] (09/24/17 1:59 PM) (09/24/17 6:29 AM) Basophils # [0.0-0.2 0.1 K/CMM 0.1 K/CMM K/CMM] (09/24/17 1:59 PM) (09/24/17 6:29 AM) D-Dimer 0.32 ug/mL FEU *NA* (6/22/18 7:54 AM) Immunizations No data available for this section [...]
[2018-02-04] MEDS ORDERED: SODIUM CHLORIDE 0.9% 1000ML 1,000 ML IV STA (11:42)
[2018-02-04] MEDS ORDERED: MORPHINE SULFATE INJ 4 MG/ML INJ IV NR (11:42)
[2018-02-04] MEDS ORDERED: ONDANSETRON HCL INJ 2 MG/ML VIAL IV NR (11:42)
[2018-02-04 12:10] LABS: BASOPHILS # (AUTO) 0.1 (0.0-0.1); BASOPHILS % 0.6 % (0.0-1.0); EOSINOPHILS # (AUTO) 0.1 (0.0-0.4); EOSINOPHILS % 1.1 % (0.0-6.0); HEMOGLOBIN 14.4 g/dL (12.0-16.0); LYMPHOCYTES # (AUTO) 1.2 (1.0-3.2); LYMPHOCYTES % 12.5 % (18.0-39.1); MEAN CORPUSCULAR HEMOGLOBIN 31.2 pg (28-32); MEAN CORPUSCULAR HGB CONC 33.5 g/dL (31-35); MEAN CORPUSCULAR VOLUME 93.1 fL (81-99); MONOCYTES # (AUTO) 0.7 (0.2-0.8); MONOCYTES % 6.9 % (4.4-11.3); NEUTROPHILS # (AUTO) 7.8 (2.1-6.9); NEUTROPHILS % 78.5 % (38.7-80.0); PLATELET COUNT 354 x10e3/uL (140-360); RED BLOOD COUNT 4.62 x10e6/uL (3.6-5.1)
[2018-02-04 12:23] LABS: BILIRUBIN,URINE NEGATIVE (NEGATIVE); CLARITY,URINE CLEAR (CLEAR); COLOR,URINE YELLOW (YELLOW); KETONES,URINE NEGATIVE (NEGATIVE); LEUKOCYTE ESTERASE ,URINE NEGATIVE (NEGATIVE); NITRITE,URINE NEGATIVE (NEGATIVE); PROTEIN,URINE DIPSTICK NEGATIVE (NEGATIVE); URINE UROBILINOGEN 0.2 mg/dL (0.2 - 1)
[2018-02-04 12:27] LABS: INR 0.86; PROTHROMBIN TIME 12.5 seconds (11.9-14.5)
[2018-02-04 12:28] LABS: PARTIAL THROMBOPLASTIN TIME 24.7 seconds (23.8-35.5)
[2018-02-04 12:32] LABS: CREATINE KINASE 46 IU/L (29-168)
[2018-02-04 12:35] LABS: ALBUMIN 4.3 g/dL (3.5-5.0); ALBUMIN/GLOBULIN RATIO 1.2 (0.8-2.0); ANION GAP 17.2 mmol/L (8-16); CREATININE, SERUM 0.99 mg/dL (0.57-1.11); MAGNESIUM 2.3 MG/DL (1.3-2.1); POTASSIUM 3.2 mmol/L (3.5-5.1)
[2018-02-04 12:54] LABS: BACTERIA,URINE FEW /HPF; EPITHELIAL CELLS,URINE MODERATE /LPF; WBC,URINE (MAN) 0-5 /HPF (0-5)
[2018-02-04] MEDS ORDERED: SODIUM CHLORIDE 0.9% 50ML 50 ML ONE (14:27)
[2018-02-04] MEDS ORDERED: IOPAMIDOL 370 MG/ML 200 ML INFUS..BTL INJ ONE (14:28)
--- NOTE | 2018-02-04 14:38 | Diagnostic Imaging Report ---
EXAMINATION: CT of the abdomen and pelvis with contrast. TECHNIQUE: Helical CT images of the abdomen and pelvis were performed from the lung bases to the lesser trochanters after the intravenous administration of 150 cc of Isovue 300 and the oral administration of none. Coronal and sagittal reformatted images were obtained. COMPARISON: None. CLINICAL HISTORY:Abdominal pain, emesis DISCUSSION: ABDOMEN/PELVIS: LOWER THORAX:Unremarkable. HEPATOBILIARY: No focal hepatic lesions. No intra-or extrahepatic biliary ductal dilation. Cholecystectomy. SPLEEN: No splenomegaly. PANCREAS: No focal masses or ductal dilatation. ADRENALS: No adrenal nodules. KIDNEYS/URETERS: No hydronephrosis, stones, or solid mass lesions. PELVIC ORGANS/BLADDER: The bladder is normal. PERITONEUM/RETROPERITONEUM: No free air or fluid. LYMPH NODES: No intra-abdominal, retroperitoneal, pelvic or inguinal lymphadenopathy. VESSELS: The celiac trunk,superior and inferior mesenteric and bilateral renal arteries are patent The portal, superior mesenteric and splenic veins are patent. GI TRACT: No distention or wall thickening. Appendectomy. BONES AND SOFT TISSUE: No bony destructive lesions. No soft tissue abnormalities. IMPRESSION: No acute CT finding. Signed by: Dr. Justin England M.D. on 02/04/2018 2:34 PM
[2018-02-04] MEDS ORDERED: PROMETHAZINE 12.5MG/ NACL 0.9% 12.5 MG/50 ML BAG IV ONE (15:15)
[2018-02-04] MEDS ORDERED: DIPHENHYDRAMINE HCL INJ 50 MG/ML VIAL IV ONE (15:15)
[2018-02-04] MEDS ORDERED: SODIUM CHLORIDE 0.9% 500ML 500 ML IV ONE (15:15)
[2018-02-04] MEDS ORDERED: ONDANSETRON HCL INJ 2 MG/ML VIAL IV STA (15:47)
[2018-02-04] MEDS ORDERED: SODIUM CHLORIDE 0.9% 1000ML 1,000 ML IV SCH (16:00)
[2018-02-04] MEDS ORDERED: PROMETHAZINE HCL (IM) 25 MG/ML VIAL IV PRN (19:15)
[2018-02-04] MEDS ORDERED: PROMETHAZINE 12.5MG/ NACL 0.9% 50 ML IV PRN (19:15)
[2018-02-04] MEDS ORDERED: ONDANSETRON HCL INJ 2 MG/ML VIAL IV PRN (19:15)
[2018-02-04] MEDS ORDERED: MORPHINE SULFATE 2 MG/ML SYR IV PRN (19:15)
[2018-02-04] MEDS: SODIUM CHLORIDE 0.9% 1000ML 1,000 ML IV SCH ×2 (19:27→21:11)
--- OUTSIDE RECORDS SUMMARY | 2018-02-04 20:27 | XMS REPORT ---
Author Author [facility] Address Unknown Phone Unavailable Care Team Providers Care Entry Processor Name Role Phone [place] KUHN Unavailable Unavailable Problems This patient has no known problems. Allergies, Adverse Reactions, Alerts This patient has no known allergies or adverse reactions. Medications This patient has no known medications. Results Test Description Test Time Test Comments Text Results Atomic Results Result Comments CT ABDOMEN/PELVIS W 2018-02-04 14:28:00 [facility] [address] [place] [address] Patient Name: GERALDINE ROSAS MR #: [id number] : 1960 Age/Sex: 57/F Req #: [id number] Adm Physician: Ordered by: KELECHI LOUIS MOVIE PRODUCER Report #: [id number] Location: ER Room/Bed: Procedure: [id number] CT/CT ABDOMEN/PELVIS W Exam Date: 02/04/18 Exam Time: 1355 REPORT STATUS: Signed EXAMINATION: CT of the abdomen and pelvis with contrast. TECHNIQUE: Helical CT images of the abdomen and pelvis were performed from the lung bases to the lesser trochanters after the intravenous administration of 150 cc of Isovue 300 and the oral administration of none. Coronal and sagittal reformatted images were obtained. COMPARISON: None. CLINICAL HISTORY:Abdominal pain, emesis DISCUSSION: ABDOMEN/PELVIS: LOWER THORAX:Unremarkable. HEPATOBILIARY: No focal hepatic lesions. No intra-or extrahepatic biliary ductal dilation. Cholecystectomy. SPLEEN: No splenomegaly. PANCREAS: No focal masses or ductal dilatation. ADRENALS: No adrenal nodules. KIDNEYS/URETERS: No hydronephrosis, stones, or solid mass lesions. PELVIC ORGANS/BLADDER: The bladder is normal. PERITONEUM/RETROPERITONEUM: No free air or fluid. LYMPH NODES: No intra-abdominal, retroperitoneal, pelvic or inguinal lymphadenopathy. VESSELS: The celiac trunk,superior and inferior mesenteric and bilateral renal arteries are patent The portal, superior mesenteric and splenic veins are patent. GI TRACT: No distention or wall thickening. Appendectomy. BONES AND SOFT TISSUE: No bony destructive lesions. No soft tissue abnormalities. IMPRESSION: No acute CT finding. Signed by: Dr. Bishop Hernández M.D. on 02/04/2018 2:34 PM Dictated By: BISHOP HERNÁNDEZ MD [id number] Transcribed By: BETH on 02/04/18 1434 COPY TO: KELECHI LOUIS NP
[2018-02-04] MEDS ORDERED: ASPIRIN 81 MG CHEW TAB PO ONE ×2 (21:15)
[2018-02-04] MEDS ORDERED: MORPHINE SULFATE INJ 4 MG/ML INJ IV PRN (21:30)
[2018-02-04 21:35] LABS: CREATINE KINASE MB 0.6 ng/mL (0-5.0)
[2018-02-04 22:16] VITALS: BP 97/54
[2018-02-05] VITALS: BP 91/52
[2018-02-05 04:00] VITALS: BP 98/51
[2018-02-05 05:09] LABS: BASOPHILS # (AUTO) 0.1 (0.0-0.1); EOSINOPHILS # (AUTO) 0.1 (0.0-0.4); EOSINOPHILS % 1.3 % (0.0-6.0); HEMATOCRIT 35.9 % (34.2-44.1); LYMPHOCYTES # (AUTO) 1.2 (1.0-3.2); LYMPHOCYTES % 20.3 % (18.0-39.1); MEAN CORPUSCULAR HEMOGLOBIN 31.7 pg (28-32); MEAN CORPUSCULAR HGB CONC 33.4 g/dL (31-35); MEAN CORPUSCULAR VOLUME 94.7 fL (81-99); MONOCYTES # (AUTO) 0.8 (0.2-0.8); MONOCYTES % 13.2 % (4.4-11.3); NEUTROPHILS # (AUTO) 3.9 (2.1-6.9); NEUTROPHILS % 63.9 % (38.7-80.0); PLATELET COUNT 255 x10e3/uL (140-360); RED BLOOD COUNT 3.79 x10e6/uL (3.6-5.1); RED CELL DISTRIBUTION WIDTH 12.3 % (11.7-14.4)
[2018-02-05 05:34] LABS: ANION GAP 13.8 mmol/L (8-16); BLOOD UREA NITROGEN 11 mg/dL (7-26); BUN/CREATININE RATIO 12 (6-25); CALCIUM 8.8 mg/dL (8.4-10.2); CARBON DIOXIDE 26 mmol/L (22-29); CHLORIDE 103 mmol/L (98-107); CREATININE, SERUM 0.93 mg/dL (0.57-1.11); EST GLOMERULAR FILTRATION RATE > 60 ML/MIN (60-); GLUCOSE 89 mg/dL (74-118); POTASSIUM 3.8 mmol/L (3.5-5.1); SODIUM 139 mmol/L (136-145)
[2018-02-05 05:59] LABS: CREATINE KINASE MB 0.4 ng/mL (0-5.0)
[2018-02-05 08:21] VITALS: BP 106/54
[2018-02-05 11:52] VITALS: BP 88/81
--- NOTE | 2018-02-05 15:09 | Discharge Summary ---
Ms. Phillip is a [facility] 57-year-old woman with multiple medical problems who presented to the emergency room on evening of the with complained of nausea, vomiting, and constipation after a foot surgery. HOSPITAL COURSE: She was monitor overnight and given IV fluids. Her narcotics were withheld. Her nausea and vomiting resolved and she had bowel movement. Today, her exam is unchanged. Laboratories are unremarkable. She is discharged home to discontinue her analgesics. We will continue oral antibiotics as prescribed by her file machine operator. We will follow with Dr. Alves and Dr. Aguilar as an outpatient. She withhold her blood pressure medicines until she is seen by her doctors. DISCHARGE DIAGNOSES 1. Ileus. 2. Borderline hypotension. 3. Constipation. 4. Recent foot surgery. MICHELLE COWAN MD Job#: [id number] MEGAN
--- NOTE | 2018-02-05 17:07 | History and Physical ---
Ms. Jaeger is a [facility] 57-year-old lady who presented to the emergency room from Dr. Aguilar'S office with the instructions of evaluation nausea and vomiting. HISTORY OF PRESENT ILLNESS: Patient had left foot surgery for nerve entrapment on January 27 and has had combination of constipation and nausea and vomiting since that time. PAST MEDICAL HISTORY: Significant for hypertension, hyperlipidemia, and congenital heart murmur. MEDICATIONS: She takes at home simvastatin, lisinopril, Norvasc, and Ranexa. She has more recently been taking some tramadol and Tylenol No. 3. PHYSICAL EXAMINATION GENERAL: Shows a pleasant, alert woman who is fairly comfortable. VITAL SIGNS: Blood pressure 90/60. HEAD, EYES, EARS, NOSE, AND THROAT: Unremarkable. NECK: No jugular venous distention. THORAX: Heart sounds S1, S2 are reduced. There is a 2/6 systolic murmur, which she says is congenital and is under the care of director cloud transformation. LUNGS: Clear. ABDOMEN: Normal bowel sounds. Nontender. EXTREMITIES: Show left foot in a splint. ASSESSMENT 1. Ileus. 2. History of hypertension, now borderline hypotensive. 3. History of hyperlipidemia. PLAN: We will withhold medications and analgesics. Provide IV fluids and monitor overnight. Further management based on clinical course. Job#: [id number] KITTY cc:DR. AMANDA LIMA
== END 2018-02-05 14:15 | disposition home or self-care (01) ==
LOC: ER 11:25 → ERHOLD 20:20 → IMCU 20:38
PROVIDERS: ADMIT Internal Medicine Cardiovascular Disease; ATTEND Internal Medicine Cardiovascular Disease
DX: K56.7 Ileus, unspecified (principal); T39.95XA Adverse effect of unspecified nonopioid analgesic, antipyretic and antirheumatic, initial encounter; E86.0 Dehydration; Z82.49 Family history of ischemic heart disease and other diseases of the circulatory system; I10 Essential (primary) hypertension; E78.5 Hyperlipidemia, unspecified; K29.70 Gastritis, unspecified, without bleeding; K21.9 Gastro-esophageal reflux disease without esophagitis; K59.00 Constipation, unspecified
CPT/HCPCS: 36415 ×2; 74177; 80048; 80053; 81001; 82150; 82550 ×2; 82553 ×2; 83690; 83735; 84484 ×2; 85025 ×2; 85610; 85730; 93005; 99284; G0378 ×2; J1200; J2405; J2550; J7030 ×2; J7040; Q9967